=== PATIENT | female | born 1945 | race Caucasian/White ===

== ENCOUNTER 2018-05-16 08:53 | Emergency (ER) | payer MEDICARE ==
[2018-05-16 09:20] VITALS: BP 141/79
--- NOTE | 2018-05-16 09:45 | UC ---
Respiratory Complaint HPI - HPI Summary HPI Summary: 72 year old female with cough. Present for over 10 days. Was getting better but in the past week worsened. productive cough. feels some wheezing. no fever. concern for bronchitis. - History of Current Complaint Chief Complaint: UCGeneralIllness Stated Complaint: RIGHT EAR COMPLAINT, CONGESTION, COUGH Time Seen by Provider: 05/16/18 09:24 Hx Obtained From: Patient Onset/Duration: Gradual Onset Timing: Constant Severity Initially: Mild Severity Currently: Moderate Pain Intensity: 5 Character: Cough: Productive Aggravating Factors: Nothing Alleviating Factors: Nothing Associated Signs And Symptoms: Positive: Wheezing, URI, Nasal Congestion - Allergies/Home Medications Allergies/Adverse Reactions: Allergies Allergy/AdvReac Type Severity Reaction Status Date / Time No Known Allergies Allergy Verified 08/11/15 10:06 Home Medications: Home Medications Mesalamine (NF) [Apriso (NF)] 0.375 gm PO QID 05/16/18 [History Confirmed ] Potassium Chlor TAB (NF) [Kaon-Cl-10 TAB (NF)] 10 meq PO DAILY 05/16/18 [ History Confirmed 05/16/18] PMH/Surg Hx/FS Hx/Imm Hx Previously Healthy: Yes Respiratory History: Bronchitis - Surgical History Surgical History: Yes Surgery Procedure, Year, and Place: TONSILLECTOMY - Social History Occupation: Retired Lives: With Family Alcohol Use: Occasionally Substance Use Type: None Smoking Status (MU): Never Smoked Tobacco - Immunization History Most Recent Influenza Vaccination: Not the 2014/2015 Season Review of Systems Constitutional: Fatigue ENT: Sore Throat, Nasal Discharge, Sinus Congestion, Sinus Pain/Tenderness Respiratory: Cough Is Patient Immunocompromised?: No All Other Systems Reviewed And Are Negative: Yes Physical Exam Triage Information Reviewed: Yes Appearance: Well-Appearing, No Pain Distress, Well-Nourished Vital Signs: Initial Vital Signs Temp 98.9 F 05/16/18 09:06 Pulse 65 05/16/18 09:06 Resp 15 05/16/18 09:06 BP 141/79 05/16/18 09:06 Pulse Ox 100 05/16/18 09:06 Vital Signs Reviewed: Yes Eye Exam: Normal ENT Exam: Normal Dental Exam: Normal Neck exam: Normal Neck: Positive: 1 Respiratory Exam: Normal Cardiovascular Exam: Normal Abdominal Exam: Normal Musculoskeletal Exam: Normal Neurological Exam: Normal Psychological Exam: Normal Skin Exam: Normal UC Diagnostic Evaluation - Laboratory O2 Sat by Pulse Oximetry: 100 Respiratory Course/Dx - Course Course Of Treatment: with resolution of Sx and now worsening there is concern about secondary bacterial infection offer treatmane at this time and she is aware and agree to plan and aware of SE of abx - Differential Dx/Diagnosis Differential Diagnosis/HQI/PQRI: Bronchitis, Lower Resp Infection, Sinusitis Provider Diagnoses: bronchitis Discharge - Sign-Out/Discharge Documenting (check all that apply): Discharge/Admit/Transfer - Discharge Plan Condition: Good Disposition: HOME Prescriptions: Albuterol HFA INHALER* [Ventolin HFA Inhaler*] 1 puff INH Q4H PRN #1 mdi PRN Reason: Sob/Wheezing Amoxicillin/Clavulanate TAB* [Augmentin TAB 875*] 875 mg PO BID #20 tab Benzonatate CAP* [Tessalon 100 MG CAP*] 100 mg PO TID #20 cap Patient Education Materials: Acute Bronchitis (ED) Referrals: Yancy Lisa MD [Primary Care Provider] - 4 Days - Billing Disposition and Condition Condition: GOOD Disposition: Home
== END 2018-05-16 09:39 | disposition home or self-care (01) ==
LOC: UCCORT 08:53
DX: J40 Bronchitis, not specified as acute or chronic (principal)
CPT/HCPCS: 99212; G0463

== ENCOUNTER 2019-03-06 09:31 | Emergency (ER) | payer MEDICARE ==
[2019-03-06 09:43] VITALS: BP 167/108
--- NOTE | 2019-03-06 10:17 | UC ---
Throat Pain/Nasal [place] HPI - HPI Summary HPI Summary: 73 -year-old female who has had upper respiratory illness with head congestion for over 1 week, on Sunday 5 days ago she started having some left-sided sinus pressure, postnasal drainage anti-cough. She denies any fever or chills. She did get a flu shot in the fall as well as pneumonia shot in the past. - History of Current Complaint Chief Complaint: UCRespiratory Stated Complaint: ST,CONGESTION,DIZZY Time Seen by Provider: 03/06/19 10:16 Hx Obtained From: Patient ?: No Onset/Duration: Gradual Onset Severity: Moderate Pain Intensity: 6 Cough: Nonproductive Associated Signs & Symptoms: Positive: Sinus Discomfort, Nasal Discharge, Other - Tight cough nonproductive. - Epiglottits Risk Factors Epiglottis Risk Factors: Negative - Allergies/Home Medications Allergies/Adverse Reactions: Allergies Allergy/AdvReac Type Severity Reaction Status Date / Time No Known Allergies Allergy Verified 03/06/19 09:41 Home Medications: Home Medications Multivitamin [Multivitamins] 1 cap PO DAILY 03/06/19 [History Confirmed 03/06/19 ] PMH/Surg Hx/FS Hx/Imm Hx Previously Healthy: Yes - Surgical History Surgical History: Yes Surgery Procedure, Year, and Place: TONSILLECTOMY - Family History Known Family History: Positive: Non-Contributory - Social History Occupation: Retired Alcohol Use: Occasionally Substance Use Type: None Smoking Status (MU): Never Smoked Tobacco - Immunization History Most Recent Influenza Vaccination: Not the 2014/2015 Season Review of Systems All Other Systems Reviewed And Are Negative: Yes ENT: Positive: Nasal Discharge, Sinus Congestion, Sinus Pain/Tenderness - Left sided sinus tenderness. Respiratory: Positive: Cough - NonProductive tight cough Is Patient Immunocompromised?: No Physical Exam Triage Information Reviewed: Yes Appearance: Well-Appearing, No Pain Distress, Well-Nourished Vital Signs: Initial Vital Signs Temp 97.8 F 03/06/19 09:36 Pulse 64 03/06/19 09:36 Resp 18 03/06/19 09:36 BP 167/108 03/06/19 09:36 Pulse Ox 100 03/06/19 09:36 Vital Signs Reviewed: Yes Eye Exam: Normal ENT: Positive: Nasal congestion, Nasal drainage, TMs normal, Sinus tenderness, Uvula midline - Left sided maxillary sinus tenderness on palpation, no nasal coryza, inflamed turbinates on the left side.. Negative: Tonsillar swelling, Tonsillar exudate, Trismus, Muffled voice, Hoarse voice Neck exam: Normal Neck: Positive: Supple, Nontender, No Lymphadenopathy Respiratory: Positive: Lungs clear, Normal breath sounds, No respiratory distress, No accessory muscle use - Tight cough but lungs sounds are clear, no respiratory distress. Cardiovascular: Positive: RRR, No Murmur, Pulses Normal, Brisk Capillary Refill Musculoskeletal Exam: Normal Neurological Exam: Normal Psychological Exam: Normal Skin Exam: Normal Throat Pain/Nasal Course/Dx - Course Course Of Treatment: Patient has used an albuterol inhaler in the past but we reviewed proper use of that and she is to do to puffs every 4 hours while awake. I'm going to treat her sinusitis with Augmentin 875 mg by mouth twice a day 10 days. She is to follow-up with her primary care provider early next week if no improvement or sooner if symptoms worsen. - Differential Dx/Diagnosis Provider Diagnosis: Sinusitis, Bronchitis Discharge - Sign-Out/Discharge Documenting (check all that apply): Patient Departure All imaging exams completed and their final reports reviewed: No Studies - Discharge Plan Condition: Fair Disposition: HOME Prescriptions: Albuterol HFA INHALER* [Ventolin HFA Inhaler*] 2 puff INH Q4H PRN 5 Days #1 mdi PRN Reason: Wheezing Amoxicillin/Clavulanate TAB* [Augmentin TAB 875*] 875 mg PO BID 10 Days #20 tab Patient Education Materials: Sinusitis (ED), Acute Bronchitis (ED) Referrals: Yancy Lisa MD [Primary Care Provider] - Additional Instructions: Increase fluids, take the augmentin with food, use your albuterol inhaler 2 puffs every 4 hours while awake. Follow up with your primary care doctor in 4-5 days if no improvement. - Billing Disposition and Condition Condition: FAIR Disposition: Home
--- OUTSIDE RECORDS SUMMARY | 2019-03-06 10:22 | XMS REPORT | Continuity of Care Document ---
:1945 External Reference #:[id number] Author Name Prakash Lim N.P. 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 Unavailable Payers Date Identification Numbers Payment Provider Subscriber Effective: 2010 Policy Number: [id number] Medicare Alban Harden PayID: [id number] [address] [place] [address] Effective: 2013 Policy Number: [facility] Maribell Harden [id number] [facility] PayID: [id number] [address] [place] [address] Effective: 2013 Policy Number: [id number] [facility] Alban Harden Expires: 2013 [address] [address] [place] [address] Expires: 2012 Policy Number: [id number] [facility] Maribell Harden [address] [address] [place] [address] Effective: 2005 Policy Number: [id number] [facility] Alban Harden Expires: 2008 Group Number: [id number] [address] PayID: [id number] [place] [address] Expires: 2009 Policy Number: [id number] [facility] Maribell Harden Group Number: [id number] [address] PayID: [id number] [place] [address] Advance Directives Description No Information Available Problems Active Problems Provider Date Benign essential hypertension Yancy Lisa M.D. Onset: 03/27/2013 Mixed hyperlipidemia Yancy Lisa M.D. Onset: 03/27/2013 Ulcerative colitis Lauren RaygozaVANESSA Onset: 07/04/2014 Allergic rhinitis Yancy Lisa M.D. Onset: 03/27/2013 Osteoarthritis Yancy Lisa M.D. Onset: 03/27/2013 Esophagitis Lauren RaygozaVANESSA Onset: 07/04/2014 Dietary potassium - low Jaret LaurenVANESSA lobo Onset: 07/04/2014 Essential hypertension Yancy Lisa M.D. Onset: 10/01/2015 Inactive Problems Asthma without status asthmaticus Yancy Lisa M.D. Onset: 03/27/2013 Inactive: 09/01/2014 Peptic reflux disease Yancy Lisa M.D. Onset: 03/27/2013 Inactive: 09/01/2014 Indigestion Yancy Lisa M.D. Onset: 03/27/2013 Inactive: 09/01/2014 Family History Date Family Member(s) Observation Comments Mother 92 Mother Depression Mother Hypertension Mother heaqrt issues Children 3 First Son 43 First Son No Current Problems First Daughter 52 First Daughter No Current Problems Second Daughter 50 Second Daughter No Current Problems Siblings 4 First Brother 67 First Brother No Current Problems Second Brother 64 Second Brother No Current Problems First Sister 66 First Sister No Current Problems Second Sister 57 Second Sister No Current Problems Social History Type Date Description Comments Sex Unknown Marital Status Legal Status: Tobacco Use Start: Unknown Never Smoked Cigarettes ETOH Use Occasionally consumes alcohol Tobacco Use Start: Unknown Patient has never smoked Smoking Status Reviewed: 08/27/18 Patient has never smoked Allergies, Adverse Reactions, Alerts Description No Known Drug Allergies Medications Active Medications SIG Qnty Indications Ordering Date Provider Rosuvastatin Calcium take 1 tablet 90tabs E78.2 Yancy Lisa 02/24/2019 10mg Tablets by mouth every M., MReynaldoDReynaldo evening Klor-Con M10 1 by mouth 90tabs E87.6 Yancy Lisa 01/25/2015 10Meq Tablets ER every day Farrukh Sanchez Hydrochlorothiazide take one 90tabs I10 Yancy Lisa 01/06/2014 25mg Tablets tablet by Daniel SanchezDReynaldo mouth every day Lopressor 1 1/2 by mouth 135tabs I10 [facility] 03/08/2012 50mg Tablets every day M.DanielDReynaldo Imelda Allergy 1 by mouth J30.2 [facility] 03/08/2012 180mg Tablets every day M. MReynaldoDReynaldo Tums as needed K30 [facility] 03/08/2012 500mg Chewtabs Farrukh Sanchez K21.0 Apriso 4 caps by mouth qday K51.90 Unknown 0.375gm Caps ER 24HR -per dr thomas Mercaptopurine 1 tab by mouth every day K51.90 Unknown 50mg Tablets Gastro History Medications Hydrocortisone apply to Upper 30gm L23.7 [facility] 07/18/2017 - 2.5% Cream Arms twice a day M., M.DReynaldo 08/27/2018 as needed Niacin ER take one tablet 90tabs E78.2 [facility] 02/14/2017 - (Antihyperlipidemic) by mouth at M., M.DReynaldo 02/10/2019 500mg bedtime Tablets ER Atorvastatin Calcium 1 by mouth every 90tabs E78.2 [facility] 2015 - 10mg day M., M.D. 05/03/2016 Tablets Lipitor 1 by mouth every 30tabs 272.2 [facility] 01/25/2015 - 20mg Tablets day M., M.D. 04/05/2015 Fish Oil 1 by mouth twice 60caps E78.2 [facility] 03/26/2014 - 1000mg Capsules a day M., M.D. 01/21/2016 Mucinex 1 po bid 461.9 [facility] 02/20/2014 - 600mg Tablets ER M., M.D. 02/24/2014 12HR Benzonatate 1 capsule po tid 30caps 466.0 [facility] 02/20/2014 - 100mg Capsules prn for cough M. M.DReynaldo 03/02/2014 Levofloxacin 1 po qd 10tabs 461.9 [facility] 02/20/2014 - 500mg Tablets M., M.D. 03/02/2014 466.0 Lipofen 1 Cap PO Qday 30caps 272.2 [facility] 02/20/2014 - 50mg Capsules With A Meal M., M.D. 03/26/2014 Klor-Con M20 Two tabs on 30tabs 276.8 [facility] 02/04/2014 - 20Meq Tablets ER M-W-F One tab M., M.D. 09/15/2014 on /Sun Hydrochlorothiazide 1 tab po qam. 30tabs 401.1 [facility] 12/23/2013 - 12.5mg Tablets M., M.D. 01/06/2014 Amlodipine Besylate 1 by mouth 30tabs 401.1 [facility] 09/08/2013 - 10mg Tablets every day M., M.D. 12/23/2013 Amoxicillin 1 by mouth 20tabs 461.8 [facility] 08/20/2013 - 500mg Tablets twice a day M., M.D. 08/30/2013 Mucinex Maximum Strength 1 po bid 30tabs 461.8 [facility] 08/20/2013 - 1200mg M., M.D. 08/25/2013 Tablets ER 12HR Amlodipine Besylate 1 po qd 30tabs 401.1 [facility] 08/20/2013 - 5mg Tablets M., M.D. 09/08/2013 Primo-DR Thomas 2 Caps PO tid 556.9 [facility] 08/05/2013 - 400mg Capsules M., M.D. 05/19/2014 DR Weir-DR Thomas 1 PO Qday 556.9 [facility] 08/05/2013 - 9mg Tablets ER M., M.D. 12/23/2013 24HR Zocor 1 by mouth 30tabs 272.2 [facility] 03/08/2012 - 40mg Tablets every day M., M.D. 12/09/2013 Medications Administered in Office Medication SIG Qnty Indications Ordering Provider Date Admin Of Pneumovax Yancy Lisa M.D. 10/01/2015 Injection Dexamethasone Phosphate 1 MG Jose Diaz D.O. 04/29/1999 Injection Dexamethasone Phosphate 1 MG Jose Diaz D.O. 03/26/1998 Injection Dexamethasone Acetate Jose Diaz D.O. 03/26/1998 Injection Dexamethasone Phosphate Jose Diaz D.O. 03/31/1997 Injection Dexamethasone Acetate Jose Diaz D.O. 03/31/1997 Injection Dexamethasone Phosphate Jose Diaz D.O. 08/19/1996 Injection Dexamethasone Acetate Jose Diaz D.O. 08/19/1996 Injection Unlisted Jose Diaz D.O. 03/23/1995 Therapeutic/Diagnostic Injection Injection Unlisted Jose Diaz D.O. 03/23/1995 Therapeutic/Diagnostic Injection Injection Immunizations CPT Code Status Date Vaccine Lot # U-Flu Given 09/01/2018 Influenza,Unspecified U-Flu Given 08/18/2017 Influenza,Unspecified [id number] Given 10/01/2015 Pneumovax [id number] Q2038 Given 09/14/2015 Flu Vaccine 3+Yrs Old(Fluzone) [id number] Given 09/01/2014 Flu Vaccine 3+Yrs Old(Fluzone) [id number] Q2038 Given 09/08/2013 Flu Vaccine 3+Yrs Old(Fluzone) [id number] Q2038 Given 09/05/2012 Flu Vaccine 3+Yrs Old(Fluzone) [id number] Given 09/05/2012 Flu Vaccine [id number] Q2038 Given 09/11/2011 Flu Vaccine 3+Yrs Old(Fluzone) [id number] Given 09/05/1999 Influenza Vaccine [id number] Given 10/08/1998 Influenza Vaccine 50729 Given 09/22/1997 Influenza Vaccine 63512 Given 09/12/1996 Influenza Vaccine 83895 Given 09/19/1995 Influenza Vaccine 18549 Given 09/19/1995 Influenza Vaccine [id number] Ordered 08/20/2016 Flu Vaccine Vital Signs Date Vital Result Comment 02/24/2019 11:07am BP Systolic 128 mmHg BP Diastolic 84 mmHg Height 62 inches 5'2" Weight 157.00 lb BMI (Body Mass Index) 28.7 kg/m2 02/10/2019 8:44am BP Systolic 130 mmHg BP Diastolic 88 mmHg Height 62 inches 5'2" Weight 159.00 lb BMI (Body Mass Index) 29.1 kg/m2 Heart Rate 72 /min Respiratory Rate 16 /min 02/05/2019 8:51am BP Systolic 130 mmHg BP Diastolic 80 mmHg Height 62 inches 5'2" Weight 159.00 lb BMI (Body Mass Index) 29.1 kg/m2 Heart Rate 78 /min Respiratory Rate 18 /min 08/28/2018 8:32am BP Systolic 138 mmHg BP Diastolic 78 mmHg Height 62 inches 5'2" Weight 158.00 lb BMI (Body Mass Index) 28.9 kg/m2 Heart Rate 68 /min Respiratory Rate 16 /min 08/06/2018 4:00pm BP Systolic 138 mmHg BP Diastolic 88 mmHg Height 62 inches 5'2" Weight 156.00 lb BMI (Body Mass Index) 28.5 kg/m2 Heart Rate 68 /min Respiratory Rate 16 /min 02/13/2018 8:39am BP Systolic 130 mmHg BP Diastolic 82 mmHg Height 62 inches 5'2" Weight 158.00 lb BMI (Body Mass Index) 28.9 kg/m2 Heart Rate 63 /min Respiratory Rate 18 /min 02/06/2018 8:20am BP Systolic 134 mmHg BP Diastolic 82 mmHg Height 62 inches 5'2" Weight 158.00 lb BMI (Body Mass Index) 28.9 kg/m2 Heart Rate 64 /min Respiratory Rate 18 /min 07/18/2017 10:12am BP Systolic 142 mmHg BP Diastolic 84 mmHg Height 62 inches 5'2" Weight 158.00 lb BMI (Body Mass Index) 28.9 kg/m2 Heart Rate 72 /min Respiratory Rate 16 /min 04/11/2017 9:38am BP Systolic 142 mmHg BP Diastolic 72 mmHg BP Systolic Recheck 112 mmHg TLW BP Diastolic Recheck 78 mmHg TLW Height 62 inches 5'2" Weight 161.00 lb BMI (Body Mass Index) 29.4 kg/m2 Heart Rate 58 /min Respiratory Rate 16 /min 03/26/2017 11:27am BP Systolic 110 mmHg BP Diastolic 68 mmHg Height 62 inches 5'2" Weight 160.00 lb BMI (Body Mass Index) 29.3 kg/m2 Heart Rate 59 /min Respiratory Rate 16 /min 02/14/2017 3:30pm BP Systolic 124 mmHg BP Diastolic 80 mmHg Height 62 inches 5'2" Weight 157.00 lb BMI (Body Mass Index) 28.7 kg/m2 Heart Rate 82 /min Respiratory Rate 16 /min 01/17/2017 8:44am BP Systolic 130 mmHg BP Diastolic 88 mmHg Height 62 inches 5'2" Weight 156.00 lb BMI (Body Mass Index) 28.5 kg/m2 Heart Rate 59 /min Respiratory Rate 16 /min 06/07/2016 8:44am BP Systolic 128 mmHg BP Diastolic 78 mmHg Height 62 inches 5'2" Weight 155.00 lb BMI (Body Mass Index) 28.3 kg/m2 Heart Rate 80 /min Respiratory Rate 20 /min 05/17/2016 8:40am BP Systolic 134 mmHg BP Diastolic 86 mmHg Height 62 inches 5'2" Weight 155.00 lb BMI (Body Mass Index) 28.3 kg/m2 Heart Rate 74 /min Respiratory Rate 17 /min 05/03/2016 9:04am BP Systolic 128 mmHg BP Diastolic 74 mmHg Height 62 inches 5'2" Weight 155.00 lb BMI (Body Mass Index) 28.3 kg/m2 Heart Rate 78 /min Respiratory Rate 18 /min 01/21/2016 8:47am BP Systolic 143 mmHg BP Diastolic 80 mmHg Height 62 inches 5'2" Weight 154.00 lb BMI (Body Mass Index) 28.2 kg/m2 Heart Rate 60 /min Respiratory Rate 20 /min 01/04/2016 8:34am BP Systolic 146 mmHg BP Diastolic 85 mmHg Height 62 inches 5'2" Weight 153.00 lb BMI (Body Mass Index) 28.0 kg/m2 Heart Rate 54 /min Respiratory Rate 18 /min 10/01/2015 4:13pm BP Systolic 165 mmHg BP Diastolic 92 mmHg Height 62 inches 5'2" Weight 152.00 lb BMI (Body Mass Index) 27.8 kg/m2 Heart Rate 67 /min Respiratory Rate 20 /min 05/31/2015 9:27am BP Systolic 132 mmHg BP Diastolic 80 mmHg Height 62 inches 5'2" Weight 156.00 lb BMI (Body Mass Index) 28.5 kg/m2 Heart Rate 54 /min Body Temperature 97.4 F Respiratory Rate 16 /min 04/26/2015 8:56am BP Systolic 155 mmHg BP Diastolic 89 mmHg Height 62 inches 5'2" Weight 162.00 lb BMI (Body Mass Index) 29.6 kg/m2 Heart Rate 73 /min Respiratory Rate 16 /min 04/05/2015 8:55am BP Systolic 141 mmHg BP Diastolic 85 mmHg Height 62 inches 5'2" Weight 158.00 lb BMI (Body Mass Index) 28.9 kg/m2 Heart Rate 54 /min Respiratory Rate 18 /min 01/25/2015 9:46am BP Systolic 151 mmHg BP Diastolic 86 mmHg Height 62 inches 5'2" Weight 161.00 lb BMI (Body Mass Index) 29.4 kg/m2 Heart Rate 68 /min Respiratory Rate 15 /min 12/14/2014 9:21am BP Systolic 154 mmHg BP Diastolic 92 mmHg Height 62 inches 5'2" Weight 159.00 lb BMI (Body Mass Index) 29.1 kg/m2 Heart Rate 62 /min Respiratory Rate 16 /min 09/15/2014 9:41am BP Systolic 124 mmHg BP Diastolic 74 mmHg Height 62 inches 5'2" Weight 152.00 lb BMI (Body Mass Index) 27.8 kg/m2 Heart Rate 66 /min Respiratory Rate 14 /min 09/01/2014 3:09pm BP Systolic 80548 mmHg Height 62 inches 5'2" Weight 152.00 lb BMI (Body Mass Index) 27.8 kg/m2 Heart Rate 56 /min Respiratory Rate 20 /min 06/18/2014 8:47am BP Systolic 141 mmHg BP Diastolic 87 mmHg Height 62 inches 5'2" Weight 149.00 lb BMI (Body Mass Index) 27.2 kg/m2 Heart Rate 80 /min Body Temperature 97.2 F Respiratory Rate 20 /min 05/26/2014 2:20pm BP Systolic 140 mmHg BP Diastolic 85 mmHg Height 62 inches 5'2" Weight 150.00 lb BMI (Body Mass Index) 27.4 kg/m2 Heart Rate 70 /min Respiratory Rate 18 /min 03/26/2014 3:51pm BP Systolic 136 mmHg BP Diastolic 80 mmHg Height 62 inches 5'2" Weight 149.00 lb BMI (Body Mass Index) 27.2 kg/m2 Heart Rate 88 /min Respiratory Rate 18 /min 02/20/2014 4:09pm BP Systolic 136 mmHg BP Diastolic 94 mmHg Height 62 inches 5'2" Weight 150.00 lb BMI (Body Mass Index) 27.4 kg/m2 Heart Rate 72 /min Respiratory Rate 18 /min 02/03/2014 9:43am BP Systolic 134 mmHg BP Diastolic 84 mmHg Height 62 inches 5'2" Weight 152.00 lb BMI (Body Mass Index) 27.8 kg/m2 Heart Rate 67 /min Respiratory Rate 18 /min 01/06/2014 9:47am BP Systolic 137 mmHg BP Diastolic 93 mmHg Height 62 inches 5'2" Weight 154.00 lb BMI (Body Mass Index) 28.2 kg/m2 Heart Rate 65 /min Respiratory Rate 18 /min 12/23/2013 9:04am BP Systolic 137 mmHg BP Diastolic 83 mmHg Height 62 inches 5'2" Weight 153.00 lb BMI (Body Mass Index) 28.0 kg/m2 Heart Rate 62 /min Respiratory Rate 18 /min 10/21/2013 3:29pm BP Systolic 157 mmHg BP Diastolic 85 mmHg BP Systolic Recheck 124 mmHg BP Diastolic Recheck 70 mmHg Height 62 inches 5'2" Weight 150.00 lb BMI (Body Mass Index) 27.4 kg/m2 Heart Rate 64 /min Respiratory Rate 20 /min 09/08/2013 8:45am BP Systolic 154 mmHg BP Diastolic 90 mmHg Height 62 inches 5'2" Weight 145.00 lb BMI (Body Mass Index) 26.5 kg/m2 Heart Rate 64 /min Respiratory Rate 20 /min 08/20/2013 8:43am BP Systolic 179 mmHg BP Diastolic 93 mmHg Height 62 inches 5'2" Weight 140.00 lb BMI (Body Mass Index) 25.6 kg/m2 Heart Rate 61 /min Body Temperature 97.0 F 08/05/2013 10:28am BP Systolic 146 mmHg BP Diastolic 78 mmHg Height 62 inches 5'2" Weight 138.00 lb BMI (Body Mass Index) 25.2 kg/m2 Heart Rate 57 /min Respiratory Rate 18 /min 03/27/2013 10:22am BP Systolic 126 mmHg BP Diastolic 66 mmHg Height 62 inches 5'2" Weight 140.00 lb BMI (Body Mass Index) 25.6 kg/m2 Heart Rate 59 /min Respiratory Rate 20 /min 09/05/2012 1:54pm BP Systolic 124 mmHg BP Diastolic 82 mmHg Height 62 inches 5'2" Weight 146.00 lb BMI (Body Mass Index) 26.7 kg/m2 Heart Rate 64 /min Respiratory Rate 16 /min 03/11/2012 11:22am BP Systolic 140 mmHg BP Diastolic 87 mmHg Height 62 inches 5'2" Weight 153.00 lb BMI (Body Mass Index) 28.0 kg/m2 Heart Rate 94 /min Last Menstrual Period 0 Respiratory Rate 15 /min Results Test Date Facility Test Result H/L Range Note CBC With Diff 02/10/2019 [facility] WBC 6.2 10*3/uL (4.1-11.0) [address] [facility] (607)- - RBC 4.57 10*6/uL (4.00-5.40) HGB 14.2 g/dL (12.0-16.0) HCT 43.5 % (36.0-47.0) MCV 95.2 fL High (80.0-95.0) MCH 31.0 pg (27.0-32.0) MCHC 32.6 g/dL (32.0-36.0) RDW 14.3 % (10.5-14.5) PLT 243 10*3/uL (150-450) MPV 9.6 fL (7.1-10.7) Neut % 65.2 % (35.0-75.0) Lymph % 19.9 % (16.0-52.0) [place] % 10.6 % High (0.0-8.0) Eos % 3.5 % (0.0-5.0) Baso % 0.8 % (0.0-4.0) Neut # 4.0 10*3/uL (1.8-7.7) Lymph # 1.2 10*3/uL (1.2-4.8) [place] # 0.7 10*3/uL (0.0-0.8) Eos # 0.2 10*3/uL (0.0-0.5) Baso # 0.0 10*3/uL (0.0-0.2) Laboratory test 02/10/2019 [facility] Magnesium 1.9 mg/dL (1.7-2.4) finding [address] (607)- - Lipid Extended Panel 02/10/2019 [facility] Appearance CLEAR (Clear) [address] (607)- - Cholesterol @ 269 mg/dL High (0-200) Triglyceride @ 262 mg/dL High (30-200) HDL Cholesterol @ 41 mg/dL (>40) 1 Chol/HDL Ratio 6.6 RATIO 2 Direct LDL @ 179 mg/dL High (<130) 3 VLDL (Calc) 49 mg/dL High (0-30) CMP 02/10/2019 [facility] Sodium 140 mmol/L (136-145) [address] (049)- - Potassium 3.7 mmol/L (3.6-5.2) Chloride 105 mmol/L (100-108) Co2 23 mmol/L (22-31) Anion Gap 12 mmol/L (7-16) Urea Nitrogen 18 mg/dL (7-24) Creatinine 0.78 mg/dL (0.60-1.00) BUN/Creat Ratio 23.1 RATIO High (10.0-20.0) Glucose 111 mg/dL High (70-99) Calcium 9.1 mg/dL (8.4-10.2) Total Protein 7.8 g/dL (6.4-8.2) Albumin 3.8 g/dL (3.2-4.5) Globulin 4.0 g/dL (2.7-4.3) Alb/Glob Ratio 1.0 RATIO Alkaline Phosphatase 58 U/L (45-117) Bilirubin,Total 0.5 mg/dL (0.0-1.0) Ast (Sgot) 41 U/L High (11-39) Alt (SGPT) 73 U/L (12-78) GFR >60 ml/min/1.73m2 (>59) GFR ( Amer) >60 ml/min/1.73m2 (>59) GFR Interpretation <SEE NOTE> 4 Hemoglobin A1c 02/10/2019 [facility] Hemoglobin A1c @ 6.0 % (4.0-6.0) 5 [address] (729)- - Est Average Glucose 126 mg/dL Laboratory test finding 02/10/2019 [facility] Esr 41 mm/h High (0-30) [address] (530)- - C Reactive Protein @ <0.3 mg/dL (0.0-0.5) Rheumatoid Factor @ <15 IU/mL (0-15) Uric Acid 5.7 mg/dL (2.6-6.0) 25 Hydroxy Vit D @ 52 ng/mL (31-100) 6 TSH,Ultrasensitive @ 1.490 mIU/L (0.360-4.170) CKMB Panel 02/10/2019 [facility] CK 148 U/L (26-192) [address] (607)- - CMB Reflex 02/10/2019 [facility] CKMB 3.7 ng/mL (0.0-5.0) [facility] [employer] [facility] (607)- - CKMB Relative Index 2.5 {index_val} (0.0-4.0) Laboratory test finding 08/06/2018 [facility] Esr 28 mm/h (0-30) [address] [employer] [facility] (607)- - 25 Hydroxy Vit D @ 48 ng/mL (31-100) 7 Direct LDL @ 159 mg/dL High (<130) 8 Hemoglobin A1c 08/06/2018 [facility] Hemoglobin A1c @ 6.1 % High (4.0- 6.0) 9 [address] [employer] [facility] (607)- - Est Average Glucose 128 mg/dL Laboratory 08/06/2018 [facility] TSH,Ultrasensitive @ 1.340 (0.360- 4.170) test finding [facility] [employer] [facility] mIU/L (607)- - Lipid 08/06/2018 [facility] Cholesterol @ 239 High (0-200) [address] [place] [address] mg/dL (607)- - Triglyceride @ 499 mg/dL High (30-200) HDL Cholesterol @ 31 mg/dL Low (>40) 10 Chol/HDL Ratio 7.7 RATIO 11 LDL Chol (Calc) UNABLE TO CALCUL <SEE NOTE> mg/dL (<130) 12 CMP 08/06/2018 [facility] Sodium 139 mmol/L (136-145) [facility] [employer] [facility] (607)- - Potassium 3.5 mmol/L Low (3.6-5.2) Chloride 100 mmol/L (100-108) Co2 29 mmol/L (22-31) Anion Gap 10 mmol/L (7-16) Urea Nitrogen 18 mg/dL (7-24) Creatinine 0.80 mg/dL (0.60-1.00) BUN/Creat Ratio 22.5 RATIO High (10.0-20.0) Glucose 100 mg/dL High (70-99) Calcium 9.5 mg/dL (8.4-10.2) Total Protein 8.1 g/dL (6.4-8.2) Albumin 3.7 g/dL (3.2-4.5) Globulin 4.4 g/dL High (2.7-4.3) Alb/Glob Ratio 0.8 RATIO Alkaline Phosphatase 71 U/L (45-117) Bilirubin,Total 0.5 mg/dL (0.0-1.0) Ast (Sgot) 52 U/L High (11-39) Alt (SGPT) 80 U/L High (12-78) GFR >60 ml/min/1.73m2 (>59) GFR ( Amer) >60 ml/min/1.73m2 (>59) GFR Interpretation <SEE NOTE> 13 CBC With Diff 08/06/2018 [facility] WBC 7.0 10*3/uL (4.1-11.0) [address] (607)- - RBC 4.36 10*6/uL (4.00-5.40) HGB 13.9 g/dL (12.0-16.0) HCT 40.3 % (36.0-47.0) MCV 92.4 fL (80.0-95.0) MCH 31.9 pg (27.0-32.0) MCHC 34.5 g/dL (32.0-36.0) RDW 14.0 % (10.5-14.5) PLT 250 10*3/uL (150-450) MPV 9.2 fL (7.1-10.7) Neut % 65.5 % (35.0-75.0) Lymph % 21.1 % (16.0-52.0) [place] % 10.8 % High (0.0-8.0) Eos % 1.8 % (0.0-5.0) Baso % 0.8 % (0.0-4.0) Neut # 4.6 10*3/uL (1.8-7.7) Lymph # 1.5 10*3/uL (1.2-4.8) [place] # 0.7 10*3/uL (0.0-0.8) Eos # 0.1 10*3/uL (0.0-0.5) Baso # 0.1 10*3/uL (0.0-0.2) CBC Auto Diff 02/06/2018 [facility] White Blood Count 6.1 10^3/uL N 3.5-10.8 Red Blood Count 4.20 10^6/uL N 4.0-5.4 Hemoglobin 13.6 g/dL N 12.0-16.0 Hematocrit 39 % N 35-47 Mean Corpuscular Volume 93 fL N 80-97 Mean Corpuscular Hemoglobin 32 pg High 27-31 Mean Corpuscular HGB Conc 35 g/dL N 31-36 Red Cell Distribution Width 14 % N 10.5-15 Platelet Count 217 10^3/uL N 150-450 Mean Platelet Volume 9.1 um3 N 7.4-10.4 Abs Neutrophils 4.0 10^3/uL N 1.5-7.7 Abs Lymphocytes 1.3 10^3/uL N 1.0-4.8 Abs Monocytes 0.7 10^3/uL N 0-0.8 Abs Eosinophils 0.1 10^3/uL N 0-0.6 Abs Basophils 0.1 10^3/uL N 0-0.2 Abs Nucleated RBC 0 10^3/uL Granulocyte % 64.9 % N 38-83 Lymphocyte % 20.6 % Low 25-47 Monocyte % 11.5 % High 0-7 Eosinophil % 2.0 % N 0-6 Basophil % 1.0 % N 0-2 Nucleated Red Blood Cells % 0 Laboratory test 02/06/2018 [facility] Hemoglobin A1c 6.0 % High 4.0- 5.6 14 finding (Glyco HGB) Erythrocyte Sed Rate 47 mm/Hr High 0-40 15 Vitamin D Total 25(Oh) 50.4 ng/mL High 20-50 16 Lipid Profile 02/06/2018 [facility] Triglycerides 394 mg/dL 17 (Trig/Chol/HDL) Cholesterol 213 mg/dL 18 HDL Cholesterol 31.1 mg/dL 19 LDL Cholesterol 103 mg/dL 20 Laboratory test 02/06/2018 [facility] TSH (Thyroid 2.29 mcIU/mL N 0.34-5.60 21 finding Stim Horm) Comp Metabolic 02/06/2018 [facility] Sodium 134 mmol/L N 133-145 Panel Potassium 3.3 mmol/L Low 3.5-5.0 Chloride 99 mmol/L Low 101-111 Co2 Carbon Dioxide 26 mmol/L N 22-32 Anion Gap 9 mmol/L N 2-11 Glucose 113 mg/dL High 70-100 Blood Urea Nitrogen 18 mg/dL N 6-24 Creatinine 0.77 mg/dL N 0.51-0.95 BUN/Creatinine Ratio 23.4 High 8-20 Calcium 9.7 mg/dL N 8.6-10.3 Total Protein 7.3 g/dL N 6.4-8.9 Albumin 4.0 g/dL N 3.2-5.2 Globulin 3.3 g/dL N 2-4 Albumin/Globulin Ratio 1.2 N 1-3 Total Bilirubin 0.50 mg/dL N 0.2-1.0 Alkaline Phosphatase 53 U/L N 34-104 Alt 43 U/L N 7-52 Ast 32 U/L N 13-39 Egfr Non- 73.7 >60 Egfr 94.8 >60 22 CBC Auto Diff 07/18/2017 [facility] White Blood Count 6.7 10^3/uL N 3.5-10.8 Red Blood Count 4.09 10^6/uL N 4.0-5.4 Hemoglobin 13.1 g/dL N 12.0-16.0 Hematocrit 39 % N 35-47 Mean Corpuscular Volume 94 fL N 80-97 Mean Corpuscular Hemoglobin 32 pg High 27-31 Mean Corpuscular HGB Conc 34 g/dL N 31-36 Red Cell Distribution Width 14 % N 10.5-15 Platelet Count 268 10^3/uL N 150-450 Mean Platelet Volume 9 um3 N 7.4-10.4 Abs Neutrophils 4.7 10^3/uL N 1.5-7.7 Abs Lymphocytes 1.3 10^3/uL N 1.0-4.8 Abs Monocytes 0.6 10^3/uL N 0-0.8 Abs Eosinophils 0.1 10^3/uL N 0-0.6 Abs Basophils 0 10^3/uL N 0-0.2 Abs Nucleated RBC 0 10^3/uL N Granulocyte % 69.7 % N 38-83 Lymphocyte % 18.8 % Low 25-47 Monocyte % 9.4 % High 1-9 Eosinophil % 2.0 % N 0-6 Basophil % 0.1 % N 0-2 Nucleated Red Blood Cells % 0.1 N Comp Metabolic Panel 07/18/2017 [facility] Sodium 135 mmol/L N 133- 145 Potassium 3.9 mmol/L N 3.5-5.0 Chloride 101 mmol/L N 101-111 Co2 Carbon Dioxide 26 mmol/L N 22-32 Anion Gap 8 mmol/L N 2-11 Glucose 109 mg/dL High 70-100 Blood Urea Nitrogen 16 mg/dL N 6-24 Creatinine 0.71 mg/dL N 0.51-0.95 BUN/Creatinine Ratio 22.5 High 8-20 Calcium 10.0 mg/dL N 8.6-10.3 Total Protein 7.6 g/dL N 6.4-8.9 Albumin 4.2 g/dL N 3.2-5.2 Globulin 3.4 g/dL N 2-4 Albumin/Globulin Ratio 1.2 N 1-3 Total Bilirubin 0.60 mg/dL N 0.2-1.0 Alkaline Phosphatase 48 U/L N 34-104 Alt 38 U/L N 7-52 Ast 31 U/L N 13-39 Egfr Non- 81.2 N >60 Egfr 104.4 N >60 23 Lipid Profile 07/18/2017 [facility] Triglycerides 388 mg/dL N 24 (Trig/Chol/HDL) Cholesterol 238 mg/dL N 25 HDL Cholesterol 37.8 mg/dL N 26 LDL Cholesterol 123 mg/dL N 27 Laboratory test 07/18/2017 [facility] Hemoglobin A1c 5.9 % N Less than 28 finding (Glyco HGB) 6.0 TSH (Thyroid Stim Horm) 1.44 mcIU/mL N 0.34-5.60 29 CBC Auto Diff 03/26/2017 [facility] White Blood Count 7.7 10^3/uL N 3.5-10.8 Red Blood Count 4.13 10^6/uL N 4.0-5.4 Hemoglobin 13.0 g/dL N 12.0-16.0 Hematocrit 39 % N 35-47 Mean Corpuscular Volume 95 fL N 80-97 Mean Corpuscular Hemoglobin 31 pg N 27-31 Mean Corpuscular HGB Conc 33 g/dL N 31-36 Red Cell Distribution Width 14 % N 10.5-15 Platelet Count 258 10^3/uL N 150-450 Mean Platelet Volume 9 um3 N 7.4-10.4 Abs Neutrophils 4.7 10^3/uL N 1.5-7.7 Abs Lymphocytes 1.9 10^3/uL N 1.0-4.8 Abs Monocytes 0.9 10^3/uL High 0-0.8 Abs Eosinophils 0.2 10^3/uL N 0-0.6 Abs Basophils 0.1 10^3/uL N 0-0.2 Abs Nucleated RBC 0.01 10^3/uL N Granulocyte % 61.2 % N 38-83 Lymphocyte % 24.5 % Low 25-47 Monocyte % 11.0 % High 1-9 Eosinophil % 2.2 % N 0-6 Basophil % 1.1 % N 0-2 Nucleated Red Blood Cells % 0.1 N Comp Metabolic Panel 03/26/2017 [facility] Sodium 134 mmol/L N 133- 145 Potassium 3.7 mmol/L N 3.5-5.0 Chloride 102 mmol/L N 101-111 Co2 Carbon Dioxide 26 mmol/L N 22-32 Anion Gap 6 mmol/L N 2-11 Glucose 107 mg/dL High 70-100 Blood Urea Nitrogen 19 mg/dL N 6-24 Creatinine 0.84 mg/dL N 0.51-0.95 BUN/Creatinine Ratio 22.6 High 8-20 Calcium 9.8 mg/dL N 8.6-10.3 Total Protein 7.5 g/dL N 6.4-8.9 Albumin 4.1 g/dL N 3.2-5.2 Globulin 3.4 g/dL N 2-4 Albumin/Globulin Ratio 1.2 N 1-3 Total Bilirubin 0.40 mg/dL N 0.2-1.0 Alkaline Phosphatase 50 U/L N 34-104 Alt 29 U/L N 7-52 Ast 24 U/L N 13-39 Egfr Non- 66.8 N >60 Egfr 86.0 N >60 30 Lipid Profile 03/26/2017 [facility] Triglycerides 327 mg/dL N 31 (Trig/Chol/HDL) Cholesterol 222 mg/dL N 32 HDL Cholesterol 37.0 mg/dL N 33 LDL Cholesterol 120 mg/dL N 34 Laboratory test 03/26/2017 [facility] Hemoglobin A1c 5.3 % N Less than 35 finding (Glyco HGB) 6.0 TSH (Thyroid Stim Horm) 1.61 mcIU/mL N 0.34-5.60 36 CBC Auto Diff 01/17/2017 [facility] White Blood Count 8.2 10^3/uL N 3.5-10.8 37 Red Blood Count 4.33 10^6/uL N 4.0-5.4 Hemoglobin 13.6 g/dL N 12.0-16.0 Hematocrit 40 % N 35-47 Mean Corpuscular Volume 93 fL N 80-97 Mean Corpuscular Hemoglobin 32 pg High 27-31 Mean Corpuscular HGB Conc 34 g/dL N 31-36 Red Cell Distribution Width 14 % N 10.5-15 Platelet Count 242 10^3/uL N 150-450 Mean Platelet Volume 10 um3 N 7.4-10.4 Abs Neutrophils 5.8 10^3/uL N 1.5-7.7 Abs Lymphocytes 1.3 10^3/uL N 1.0-4.8 Abs Monocytes 0.7 10^3/uL N 0-0.8 Abs Eosinophils 0.2 10^3/uL N 0-0.6 Abs Basophils 0.1 10^3/uL N 0-0.2 Abs Nucleated RBC 0 10^3/uL N Granulocyte % 71.2 % N 38-83 Lymphocyte % 16.4 % Low 25-47 Monocyte % 8.8 % N 1-9 Eosinophil % 3.0 % N 0-6 Basophil % 0.6 % N 0-2 Nucleated Red Blood Cells % 0 N Comp Metabolic Panel 01/17/2017 [facility] Sodium 133 mmol/L N 133- 145 Potassium 3.7 mmol/L N 3.5-5.0 Chloride 99 mmol/L Low 101-111 Co2 Carbon Dioxide 27 mmol/L N 22-32 Anion Gap 7 mmol/L N 2-11 Glucose 118 mg/dL High 70-100 Blood Urea Nitrogen 16 mg/dL N 6-24 Creatinine 0.73 mg/dL N 0.51-0.95 BUN/Creatinine Ratio 21.9 High 8-20 Calcium 10.0 mg/dL N 8.6-10.3 Total Protein 7.8 g/dL N 6.4-8.9 Albumin 4.2 g/dL N 3.2-5.2 Globulin 3.6 g/dL N 2-4 Albumin/Globulin Ratio 1.2 N 1-3 Total Bilirubin 0.50 mg/dL N 0.2-1.0 Alkaline Phosphatase 52 U/L N 34-104 Alt 30 U/L N 7-52 Ast 26 U/L N 13-39 Egfr Non- 78.6 N >60 Egfr 101.1 N >60 38 Laboratory test finding 01/17/2017 [facility] Lipase 22 U/L N 11.0- 82.0 39 Amylase 51 U/L N 29-103 40 Lipid Profile 01/17/2017 [facility] Triglycerides 471 mg/dL N 41 (Trig/Chol/HDL) Cholesterol 254 mg/dL N 42 HDL Cholesterol 38.4 mg/dL N 43 LDL Cholesterol (SEE NOTE) mg/dL N 44 Laboratory test 01/17/2017 [facility] Hemoglobin A1c 5.9 % N Less than 45 finding (Glyco HGB) 6.0 TSH (Thyroid Stim Horm) 1.68 mcIU/mL N 0.34-5.60 46 Laboratory test 05/03/2016 [facility] Hemoglobin A1c 5.7 % N Less than 47 finding (Glyco HGB) 6.0 Comp Metabolic 05/03/2016 [facility] Sodium 135 mmol/L N 133-145 Panel Potassium 3.5 mmol/L N 3.5-5.0 Chloride 101 mmol/L N 101-111 Co2 Carbon Dioxide 25 mmol/L N 22-32 Anion Gap 9 mmol/L N 2-11 Glucose 114 mg/dL High 70-100 Blood Urea Nitrogen 16 mg/dL N 6-24 Creatinine 0.78 mg/dL N 0.51-0.95 BUN/Creatinine Ratio 20.5 High 8-20 Calcium 9.6 mg/dL N 8.6-10.3 Total Protein 7.7 g/dL N 6.4-8.9 Albumin 4.3 g/dL N 3.2-5.2 Globulin 3.4 g/dL N 2-4 Albumin/Globulin Ratio 1.3 N 1-3 Total Bilirubin 0.50 mg/dL N 0.2-1.0 Alkaline Phosphatase 53 U/L N 34-104 Alt 26 U/L N 7-52 Ast 25 U/L N 13-39 Egfr Non- 73.0 N >60 Egfr 93.9 N >60 48 Lipid Profile 05/03/2016 [facility] Triglycerides 353 mg/dL N 49 (Trig/Chol/HDL) Cholesterol 205 mg/dL N 50 HDL Cholesterol 41.0 mg/dL N 51 LDL Cholesterol 93 mg/dL N 52 CBC Auto Diff 05/03/2016 [facility] White Blood Count 6.2 10^3/uL N 3.5-10.8 Red Blood Count 4.26 10^6/uL N 4.0-5.4 Hemoglobin 13.6 g/dL N 12.0-16.0 Hematocrit 40 % N 35-47 Mean Corpuscular Volume 94 fL N 80-97 Mean Corpuscular Hemoglobin 32 pg High 27-31 Mean Corpuscular HGB Conc 34 g/dL N 31-36 Red Cell Distribution Width 14 % N 10.5-15 Platelet Count 235 10^3/uL N 150-450 Mean Platelet Volume 9 um3 N 7.4-10.4 Abs Neutrophils 3.7 10^3/uL N 1.5-7.7 Abs Lymphocytes 1.6 10^3/uL N 1.0-4.8 Abs Monocytes 0.7 10^3/uL N 0-0.8 Abs Eosinophils 0.2 10^3/uL N 0-0.6 Abs Basophils 0.1 10^3/uL N 0-0.2 Abs Nucleated RBC 0 10^3/uL N Granulocyte % 59.6 % N 38-83 Lymphocyte % 25.6 % N 25-47 Monocyte % 10.6 % High 1-9 Eosinophil % 2.7 % N 0-6 Basophil % 1.5 % N 0-2 Nucleated Red Blood Cells % 0 N Laboratory test 05/03/2016 [facility] Rheumatoid Factor <15 IU/mL N < 15 53 finding TSH (Thyroid Stim Horm) 1.82 ?IU/mL N 0.34-5.60 54 Laboratory test 01/04/2016 [facility] Magnesium 1.9 mg/dL N 1.9-2.7 finding Laboratory test 01/04/2016 [facility] TSH (Thyroid 2.52 ?IU/mL N 0.34 -5.60 finding Stim Horm) Uric Acid 6.3 mg/dL N 2.3-6.6 Vitamin D Total 25(Oh) 36.0 ng/mL N 30-50 Lipid Profile 01/04/2016 [facility] Triglycerides 290 mg/dL N 55 (Trig/Chol/HDL) Cholesterol 245 mg/dL N 56 HDL Cholesterol 44.6 mg/dL N 57 LDL Cholesterol 142 mg/dL N 58 Laboratory test 01/04/2016 [facility] Erythrocyte Sed Rate 39 mm/Hr N 0-40 finding CRP High Sensitivity 3.09 mg/L N 59 Hemoglobin A1c (Glyco HGB) 5.8 % N Less than 6.0 60 Comp Metabolic Panel 01/04/2016 [facility] Sodium 135 mmol/L N 133- 145 Potassium 3.5 mmol/L N 3.5-5.0 Chloride 101 mmol/L N 101-111 Co2 Carbon Dioxide 25 mmol/L N 22-32 Anion Gap 9 mmol/L N 2-11 Glucose 109 mg/dL High 70-100 Blood Urea Nitrogen 18 mg/dL N 6-24 Creatinine 0.75 mg/dL N 0.51-0.95 BUN/Creatinine Ratio 24.0 High 8-20 Calcium 9.4 mg/dL N 8.6-10.3 Total Protein 7.6 g/dL N 6.4-8.9 Albumin 4.1 g/dL N 3.2-5.2 Globulin 3.5 g/dL N 2-4 Albumin/Globulin Ratio 1.2 N 1-3 Total Bilirubin 0.60 mg/dL N 0.2-1.0 Alkaline Phosphatase 58 U/L N 34-104 Alt 19 U/L N 7-52 Ast 18 U/L N 13-39 Egfr Non- 76.4 N >60 Egfr 98.2 N >60 61 CBC Auto Diff 01/04/2016 [facility] White Blood Count 7.8 10^3/uL N 3.5-10.8 Red Blood Count 4.28 10^6/uL N 4.0-5.4 Hemoglobin 13.6 g/dL N 12.0-16.0 Hematocrit 41 % N 35-47 Mean Corpuscular Volume 96 fL N 80-97 Mean Corpuscular Hemoglobin 32 pg High 27-31 Mean Corpuscular HGB Conc 33 g/dL N 31-36 Red Cell Distribution Width 14 % N 10.5-15 Platelet Count 242 10^3/uL N 150-450 Mean Platelet Volume 10 um3 N 7.4-10.4 Abs Neutrophils 5.2 10^3/uL N 1.5-7.7 Abs Lymphocytes 1.5 10^3/uL N 1.0-4.8 Abs Monocytes 0.8 10^3/uL N 0-0.8 Abs Eosinophils 0.2 10^3/uL N 0-0.6 Abs Basophils 0.1 10^3/uL N 0-0.2 Abs Nucleated RBC 0 10^3/uL N Granulocyte % 66.9 % N 38-83 Lymphocyte % 18.7 % Low 25-47 Monocyte % 10.5 % High 1-9 Eosinophil % 3.0 % N 0-6 Basophil % 0.9 % N 0-2 Nucleated Red Blood Cells % 0 N CBC W/Automated Diff 04/05/2015 [facility] White Blood Count 7.1 K/uL 3.1- 10.7 Red Blood Count 4.19 M/uL 3.90-5.40 Hemoglobin 13.7 gm/dL 11.6-15.8 Hematocrit 40.6 % 36.0-46.1 Mean Cell Volume 96.9 fl 80.9-99.0 Mean Corpuscular HGB 32.7 pg 25.9-32.7 Mean Corpuscular HGB Conc 33.7 g/dL 30.8-34.3 Platelet Count 280 K/uL 155-360 Red Cell Distri Width SD 48.9 fl High 3-47 Red Cell Distri Width %CV 14.1 % 11.7-14.4 Mean Platelet Volume 11.2 fL 8.9-12.4 Neut% 63.4 % 40.4-72.8 Lymph % 21.7 % 17.0-46.1 [place] % 11.5 % 4.3-13.2 Eo% 2.7 % 0.0-6.6 Bas% 0.7 % 0.0-1.1 Neut# 4.53 K/uL 1.0-7.0 Lymph # 1.55 K/uL Low 1.8-7.0 [place] # 0.82 K/uL 0.3-0.9 Eos # 0.19 K/uL 0.0-0.5 Baso # 0.05 K/uL 0.0-0.1 Comprehensive Metabolic Panel 04/05/2015 [facility] Glucose 120 mg/dL High 74-106 BUN 16 mg/dL 7-18 Creatinine 0.9 mg/dL 0.6-1.3 Glom Filtration Rate, Estimate >60 mL/min >60 If >60 mL/min >60 62 BUN/Creat 17.7 ratio Sodium 138 mmol/L 136-145 Potassium 3.6 mmol/L 3.5-5.1 Chloride 101 mmol/L 98-107 Carbon Dioxide 29 mmol/L 21-32 Anion Gap 8 mEq/L 8-16 Calcium 9.6 mg/dL 8.5-10.1 Total Protein 7.3 g/dL 6.4-8.2 Albumin 3.8 g/dL 3.4-5.0 Globulin 3.5 g/dL 1.9-4.3 Alb/Glob 1.1 ratio Bilirubin,Total 0.6 mg/dL 0.2-1.0 Sgot/Ast 48 U/L High 15-37 SGPT/Alt 89 U/L High 12-78 Alkaline Phosphatase 53 U/L 45-117 Laboratory test 04/05/2015 [facility] Sedimentation Rate 37 mm/hr High 0- 30 finding LDL Cholesterol 04/05/2015 [facility] Cholesterol 232 mg/dL < 200 63 Profile Triglycerides 318 mg/dL < 150 64 HDL Cholesterol 30 mg/dL > 40 65 LDL-Cholesterol 138 mg/dL < 100 66 Laboratory test 12/14/2014 [facility] TSH Reflex FT4 1.30 uIU/mL 0.36- 3.74 67 finding and/or FT3 LDL Cholesterol 12/14/2014 [facility] Cholesterol 265 mg/dL < 200 68 Profile Triglycerides 361 mg/dL < 150 69 HDL Cholesterol 36 mg/dL > 40 70 LDL-Cholesterol 157 mg/dL < 100 71 Laboratory test 12/14/2014 [facility] C-Reactive 0.69 mg/L <3.0 finding Protein,Cardiac Sedimentation Rate 31 mm/hr High 0-30 Comprehensive Metabolic Panel 12/14/2014 [facility] Glucose 93 mg/dL 74- 106 BUN 13 mg/dL 7-18 Creatinine 0.8 mg/dL 0.6-1.3 Glom Filtration Rate, Estimate >60 mL/min >60 If >60 mL/min >60 72 BUN/Creat 16.2 ratio Sodium 139 mmol/L 136-145 Potassium 3.2 mmol/L Low 3.5-5.1 Chloride 103 mmol/L 98-107 Carbon Dioxide 30 mmol/L 21-32 Anion Gap 9 mEq/L 8-16 Calcium 8.9 mg/dL 8.5-10.1 Total Protein 7.2 g/dL 6.4-8.2 Albumin 3.5 g/dL 3.4-5.0 Globulin 3.7 g/dL 1.9-4.3 Alb/Glob 0.9 ratio Bilirubin,Total 0.4 mg/dL 0.2-1.0 Sgot/Ast 18 U/L 15-37 SGPT/Alt 39 U/L 12-78 Alkaline Phosphatase 57 U/L 45-117 CBC W/Automated Diff 12/14/2014 [facility] White Blood Count 7.8 K/uL 3.1- 10.7 Red Blood Count 4.15 M/uL 3.90-5.40 Hemoglobin 13.6 gm/dL 11.6-15.8 Hematocrit 40.4 % 36.0-46.1 Mean Cell Volume 97.3 fl 80.9-99.0 Mean Corpuscular HGB 32.8 pg High 25.9-32.7 Mean Corpuscular HGB Conc 33.7 g/dL 30.8-34.3 Platelet Count 274 K/uL 155-360 Red Cell Distri Width SD 48.7 fl High 3-47 Red Cell Distri Width %CV 14.1 % 11.7-14.4 Mean Platelet Volume 11.0 fL 8.9-12.4 Neut% 69.5 % 40.4-72.8 Lymph % 19.4 % 17.0-46.1 [place] % 10.1 % 4.3-13.2 Eo% 0.5 % 0.0-6.6 Bas% 0.5 % 0.0-1.1 Neut# 5.39 K/uL 1.0-7.0 Lymph # 1.50 K/uL 0.8-3.4 [place] # 0.78 K/uL 0.3-0.9 Eos # 0.04 K/uL 0.0-0.5 Baso # 0.04 K/uL 0.0-0.1 Laboratory test finding 09/01/2014 [facility] Potassium 3.8 mmol/L 3.5- 5.1 LDL Cholesterol Profile 09/01/2014 [facility] Cholesterol 213 mg/dL 73 Triglycerides 212 mg/dL 74 HDL Cholesterol 45 mg/dL 75 LDL-Cholesterol 126 mg/dL 76 CBC W/Automated Diff 09/01/2014 [facility] White Blood Count 7.7 K/uL 3.1- 10.7 Red Blood Count 3.45 M/uL Low 3.90-5.40 Hemoglobin 11.6 gm/dL 11.6-15.8 Hematocrit 34.4 % Low 36.0-46.1 Mean Cell Volume 99.7 fl High 80.9-99.0 Mean Corpuscular HGB 33.6 pg High 25.9-32.7 Mean Corpuscular HGB Conc 33.7 g/dL 30.8-34.3 Platelet Count 308 K/uL 155-360 Red Cell Distri Width SD 57.2 fl High 3-47 Red Cell Distri Width %CV 16.4 % High 11.7-14.4 Mean Platelet Volume 10.3 fL 8.9-12.4 Neut% 61.9 % 40.4-72.8 Lymph % 27.4 % 17.0-46.1 [place] % 8.6 % 4.3-13.2 Eo% 1.4 % 0.0-6.6 Bas% 0.7 % 0.0-1.1 Neut# 4.75 K/uL 1.0-7.0 Lymph # 2.10 K/uL 0.8-3.4 [place] # 0.66 K/uL 0.3-0.9 Eos # 0.11 K/uL 0.0-0.5 Baso # 0.05 K/uL 0.0-0.1 Comprehensive Metabolic Panel 09/01/2014 [facility] Glucose 78 mg/dL 74- 106 BUN 13 mg/dL 7-18 Creatinine 0.8 mg/dL 0.6-1.3 Glom Filtration Rate, Estimate >60 mL/min >60 If >60 mL/min >60 77 BUN/Creat 16.2 ratio Sodium 139 mmol/L 136-145 Chloride 104 mmol/L 98-107 Carbon Dioxide 29 mmol/L 21-32 Anion Gap 10 mEq/L 8-16 Calcium 9.1 mg/dL 8.5-10.1 Total Protein 7.2 g/dL 6.4-8.2 Albumin 3.5 g/dL 3.4-5.0 Globulin 3.7 g/dL 1.9-4.3 Alb/Glob 0.9 ratio Bilirubin,Total 0.7 mg/dL 0.2-1.0 Sgot/Ast 14 U/L Low 15-37 SGPT/Alt 22 U/L 12-78 Alkaline Phosphatase 61 U/L 45-117 Comprehensive Metabolic Panel 06/18/2014 [facility] Glucose 83 mg/dL 76- 115 BUN 15 mg/dL 5-23 Creatinine 0.7 mg/dL 0.5-1.4 Glom Filtration Rate, Estimate >60 mL/min >60 If >60 mL/min >60 78 BUN/Creat 21.4 ratio Sodium 136 mmol/L 136-145 Potassium 3.2 mmol/L Low 3.5-5.1 Chloride 99 mmol/L 98-107 Carbon Dioxide 27 mEq/L 18-29 Anion Gap 13 mEq/L 8-16 Calcium 9.6 mg/dL 8.5-10.1 Total Protein 8.0 g/dL 6.3-8.0 Albumin 3.7 g/dL 3.5-5.0 Globulin 4.3 g/dL 1.9-4.3 Alb/Glob 0.9 ratio Bilirubin,Total 0.5 mg/dL 0.2-1.2 Sgot/Ast 16 U/L 16-40 SGPT/Alt 26 U/L Low 30-65 Alkaline Phosphatase 69 U/L 50-136 CBC W/Automated Diff 06/18/2014 [facility] White Blood Count 6.8 K/uL 3.1- 10.7 Red Blood Count 4.07 M/uL 3.90-5.40 Hemoglobin 12.9 gm/dL 11.6-15.8 Hematocrit 38.1 % 36.0-46.1 Mean Cell Volume 93.6 fl 80.9-99.0 Mean Corpuscular HGB 31.7 pg 25.9-32.7 Mean Corpuscular HGB Conc 33.9 g/dL 30.8-34.3 Platelet Count 314 K/uL 155-360 Red Cell Distri Width SD 50.3 fl High 3-47 Red Cell Distri Width %CV 15.2 % High 11.7-14.4 Mean Platelet Volume 10.9 fL 8.9-12.4 Neut% 70.8 % 40.4-72.8 Lymph % 16.9 % Low 17.0-46.1 [place] % 9.8 % 4.3-13.2 Eo% 2.1 % 0.0-6.6 Bas% 0.4 % 0.0-1.1 Neut# 4.79 K/uL 1.0-7.0 Lymph # 1.14 K/uL 0.8-3.4 [place] # 0.66 K/uL 0.3-0.9 Eos # 0.14 K/uL 0.0-0.5 Baso # 0.03 K/uL 0.0-0.1 LDL Cholesterol Profile 06/18/2014 [facility] Cholesterol 239 mg/dL High 120-200 Triglycerides 310 mg/dL High 16-231 HDL Cholesterol 32 mg/dL 29-83 LDL-Cholesterol 145 mg/dL 62-185 Laboratory test finding 06/18/2014 [facility] ThinPrep Pap See Note 79 Specimen Basic Metabolic Panel 02/20/2014 [facility] Glucose 100 mg/dL 76-115 BUN 21 mg/dL 5-23 Creatinine 0.9 mg/dL 0.5-1.4 Glom Filtration Rate, Estimate >60 mL/min >60 If >60 mL/min >60 80 BUN/Creat 23.3 ratio Sodium 138 mmol/L 136-145 Potassium 3.7 mmol/L 3.5-5.1 Chloride 104 mmol/L 98-107 Carbon Dioxide 27 mEq/L 18-29 Anion Gap 11 mEq/L 8-16 Calcium 9.3 mg/dL 8.5-10.1 Basic Metabolic Panel 02/03/2014 [facility] Glucose 84 mg/dL 76-115 BUN 17 mg/dL 5-23 Creatinine 0.8 mg/dL 0.5-1.4 Glom Filtration Rate, Estimate >60 mL/min >60 If >60 mL/min >60 81 BUN/Creat 21.2 ratio Sodium 137 mmol/L 136-145 Potassium 3.2 mmol/L Low 3.5-5.1 Chloride 101 mmol/L 98-107 Carbon Dioxide 28 mEq/L 18-29 Anion Gap 11 mEq/L 8-16 Calcium 9.3 mg/dL 8.5-10.1 CBC W/Automated Diff 02/03/2014 [facility] White Blood Count 9.7 K/uL 3.1- 10.7 Red Blood Count 4.52 M/uL 3.90-5.40 Hemoglobin 13.9 gm/dL 11.6-15.8 Hematocrit 41.5 % 36.0-46.1 Mean Cell Volume 91.8 fl 80.9-99.0 Mean Corpuscular HGB 30.8 pg 25.9-32.7 Mean Corpuscular HGB Conc 33.5 g/dL 30.8-34.3 Platelet Count 333 K/uL 155-360 Red Cell Distri Width SD 44.7 fl 3-47 Red Cell Distri Width %CV 13.6 % 11.7-14.4 Mean Platelet Volume 10.9 fL 8.9-12.4 Neut% 70.3 % 40.4-72.8 Lymph % 17.0 % 17.0-46.1 [place] % 10.4 % 4.3-13.2 Eo% 2.0 % 0.0-6.6 Bas% 0.3 % 0.0-1.1 Neut# 6.84 K/uL 1.0-7.0 Lymph # 1.65 K/uL 0.8-3.4 [place] # 1.01 K/uL High 0.3-0.9 Eos # 0.19 K/uL 0.0-0.5 Baso # 0.03 K/uL 0.0-0.1 LDL Cholesterol Profile 02/03/2014 [facility] Cholesterol 219 mg/dL High 120-200 Triglycerides 299 mg/dL High 16-231 HDL Cholesterol 28 mg/dL Low 29-83 LDL-Cholesterol 131 mg/dL 62-185 Liver Function Tests 02/03/2014 [facility] Total Protein 8.2 g/dL High 6.3- 8.0 Albumin 3.7 g/dL 3.5-5.0 Globulin 4.5 g/dL High 1.9-4.3 Alb/Glob 0.8 ratio Bilirubin,Total 0.5 mg/dL 0.2-1.2 Bilirubin,Direct 0.1 mg/dL 0.1-0.4 Bilirubin,Indirect 0.4 mg/dL 0.0-0.9 Sgot/Ast 33 U/L 16-40 SGPT/Alt 51 U/L 30-65 Alkaline Phosphatase 85 U/L 50-136 Laboratory test finding 02/03/2014 [facility] Sedimentation Rate 57 mm/hr High 0-30 Basic Metabolic Panel 12/23/2013 [facility] Glucose 93 mg/dL 76-115 BUN 10 mg/dL 5-23 Creatinine 0.7 mg/dL 0.5-1.4 Glom Filtration Rate, Estimate >60 mL/min >60 If >60 mL/min >60 82 BUN/Creat 14.2 ratio Sodium 139 mmol/L 136-145 Potassium 3.8 mmol/L 3.5-5.1 Chloride 107 mmol/L 98-107 Carbon Dioxide 23 mEq/L 18-29 Anion Gap 13 mEq/L 8-16 Calcium 9.2 mg/dL 8.5-10.1 Liver Function Tests 12/23/2013 [facility] Total Protein 6.8 g/dL 6.3-8.0 Albumin 3.9 g/dL 3.5-5.0 Globulin 2.9 g/dL 1.9-4.3 Alb/Glob 1.3 ratio Bilirubin,Total 0.4 mg/dL 0.2-1.2 Bilirubin,Direct 0.1 mg/dL 0.1-0.4 Bilirubin,Indirect 0.3 mg/dL 0.0-0.9 Sgot/Ast 50 U/L High 16-40 SGPT/Alt 65 U/L 30-65 Alkaline Phosphatase 98 U/L 50-136 CBC W/Automated Diff 12/23/2013 [facility] White Blood Count 5.6 K/uL 3.1- 10.7 Red Blood Count 4.40 M/uL 3.90-5.40 Hemoglobin 13.5 gm/dL 11.6-15.8 Hematocrit 40.0 % 36.0-46.1 Mean Cell Volume 90.9 fl 80.9-99.0 Mean Corpuscular HGB 30.7 pg 25.9-32.7 Mean Corpuscular HGB Conc 33.8 g/dL 30.8-34.3 Platelet Count 259 K/uL 155-360 Red Cell Distri Width SD 48.2 fl High 3-47 Red Cell Distri Width %CV 14.9 % High 11.7-14.4 Mean Platelet Volume 10.9 fL 8.9-12.4 Neut% 61.6 % 40.4-72.8 Lymph % 26.3 % 17.0-46.1 [place] % 10.0 % 4.3-13.2 Eo% 1.6 % 0.0-6.6 Bas% 0.5 % 0.0-1.1 Neut# 3.45 K/uL 1.0-7.0 Lymph # 1.47 K/uL 0.8-3.4 [place] # 0.56 K/uL 0.3-0.9 Eos # 0.09 K/uL 0.0-0.5 Baso # 0.03 K/uL 0.0-0.1 Basic Metabolic Panel 08/20/2013 [facility] Glucose 69 mg/dL Low 76-115 BUN 11 mg/dL 5-23 Creatinine 0.5 mg/dL 0.5-1.4 Glom Filtration Rate, Estimate >60 mL/min >60 If >60 mL/min >60 83 BUN/Creat 22.0 ratio Sodium 140 mmol/L 136-145 Potassium 3.7 mmol/L 3.5-5.1 Chloride 105 mmol/L 98-107 Carbon Dioxide 27 mEq/L 18-29 Anion Gap 12 mEq/L 8-16 Calcium 8.6 mg/dL 8.5-10.1 CBC W/Automated Diff 08/20/2013 [facility] White Blood Count 7.3 K/uL 3.1- 10.7 Red Blood Count 3.97 M/uL 3.90-5.40 Hemoglobin 11.4 gm/dL Low 11.6-15.8 Hematocrit 35.8 % Low 36.0-46.1 Mean Cell Volume 90.2 fl 80.9-99.0 Mean Corpuscular HGB 28.7 pg 25.9-32.7 Mean Corpuscular HGB Conc 31.8 g/dL 30.8-34.3 Platelet Count 263 K/uL 155-360 Red Cell Distri Width SD 50.7 fl High 3-47 Red Cell Distri Width %CV 15.6 % High 11.7-14.4 Mean Platelet Volume 10.7 fL 8.9-12.4 Neut% 65.6 % 40.4-72.8 Lymph % 23.3 % 17.0-46.1 [place] % 9.9 % 4.3-13.2 Eo% 0.8 % 0.0-6.6 Bas% 0.4 % 0.0-1.1 Neut# 4.76 K/uL 1.0-7.0 Lymph # 1.69 K/uL 0.8-3.4 [place] # 0.72 K/uL 0.3-0.9 Eos # 0.06 K/uL 0.0-0.5 Baso # 0.03 K/uL 0.0-0.1 Laboratory test 08/20/2013 [facility] C-Reactive 1.24 mg/L 0.00-3.00 84 finding Protein,Cardiac Sedimentation Rate 31 mm/hr High 0-30 LDL Cholesterol Profile 08/20/2013 [facility] Cholesterol 172 mg/dL 120- 200 Triglycerides 154 mg/dL 16-231 HDL Cholesterol 45 mg/dL 29-83 LDL-Cholesterol 96 mg/dL 62-185 Liver Function Tests 08/20/2013 [facility] Total Protein 6.8 g/dL 6.3-8.0 Albumin 3.1 g/dL Low 3.5-5.0 Globulin 3.7 g/dL 1.9-4.3 Alb/Glob 0.8 ratio Bilirubin,Total 0.3 mg/dL 0.2-1.2 Bilirubin,Direct < 0.1 mg/dL Low 0.1-0.4 Bilirubin,Indirect 0.2 mg/dL 0.0-0.9 Sgot/Ast 12 U/L Low 16-40 SGPT/Alt 20 U/L Low 30-65 Alkaline Phosphatase 79 U/L 50-136 Laboratory test 08/20/2013 [facility] Thyroid Stim 1.64 uIU/mL 0.49-4.67 finding Hormone Surgical 06/12/2013 [facility] S RUN DATE: 85 Pathology 06/16/ <SEE NOTE> CBC Auto Diff 03/27/2013 [facility] White Blood 6.4 10^3/uL 4.8- 10.8 Count Red Blood Count 4.04 10^6/uL 4.0-5.4 Hemoglobin 11.5 g/dL Low 12.0-16.0 Hematocrit 35 % 35-47 Mean Corpuscular Volume 87 fL 80-97 Mean Corpuscular Hemoglobin 29 pg 27-31 Mean Corpuscular HGB Conc 33 g/dL 31-36 Red Cell Distribution Width 14 % 10.5-15 Platelet Count 297 10^3/uL 150-450 Mean Platelet Volume 8 um3 7.4-10.4 Abs Neutrophils 3.9 10^3/uL 1.5-7.7 Abs Lymphocytes 1.5 10^3/uL 1.0-4.8 Abs Monocytes 0.8 10^3/uL 0-0.8 Abs Eosinophils 0.2 10^3/uL 0-0.6 Abs Basophils 0 10^3/uL 0-0.2 Abs Nucleated RBC 0 10^3/uL Granulocyte % 60.4 % 38-83 Lymphocyte % 23.3 % Low 25-47 Monocyte % 11.9 % High 1-9 Eosinophil % 3.7 % 0-6 Basophil % 0.7 % 0-2 Nucleated Red Blood Cells % 0.1 Basic Metabolic Panel 03/27/2013 [facility] Sodium 136 mmol/L 133- 145 Potassium 4.1 mmol/L 3.5-5.0 Chloride 105 mmol/L 101-111 Co2 Carbon Dioxide 25.0 mmol/L 22-32 Anion Gap 6.0 mmol/L 2-11 Glucose 86 mg/dL 70-100 Blood Urea Nitrogen 14 mg/dL 6-24 Creatinine 0.70 mg/dL 0.50-1.40 BUN/Creatinine Ratio 20.0 8-20 Calcium 8.8 mg/dL 8.1-9.9 Egfr Non- 83.5 >60 Egfr 107.3 >60 86 Lipid Profile 03/27/2013 [facility] Triglycerides 149 mg/dL 40-200 (Trig/Chol/HDL) Cholesterol 179 mg/dL Less than 200 HDL Cholesterol 32 mg/dL Low 40-60 87 Cholesterol/HDL Ratio 5.6 Average High 1-4.44 LDL Cholesterol 117.2 mg/dL High Less Than 100 88 Liver Function Panel 03/27/2013 [facility] Total Protein 6.9 g/dL 6.2-8.1 Albumin 3.1 g/dL Low 3.2-5.2 Globulin 3.8 g/dL 2-4 Albumin/Globulin Ratio 0.8 Low 1-3 Total Bilirubin 0.5 mg/dL 0.4-1.5 Direct Bilirubin 0.1 mg/dL 0.1-0.5 Indirect Bilirubin 0.4 mg/dL 0.3-1.0 Alkaline Phosphatase 72 U/L 30-110 Alt 16 U/L 14-54 Ast 20 U/L 12-42 Laboratory test 03/27/2013 [facility] TSH (Thyroid 1.32 miu/mL 0.34- 5.60 finding Stimulating Horm) Amylase 61 U/L 20-120 Lipase 25 U/L 22-51 Erythrocyte Sed Rate 89 mm/Hr High 0-40 CRP High Sensitivity 21.5 mg/L 89 CA 125 Antigen 9.1 U/mL 2.0-35.0 90 1 PER NCEP ATP III GUIDELINES: RESULTS LOWER THAN 40 MG/DL ARE SUGGESTIVE OF INCREASED RISK FOR CORONARY ARTERY DISEASE. RESULTS > OR=TO 60 MG/DL ARE CONSIDERED A NEGATIVE RISK FACTOR. 2 INTERPRETATION OF CHOL-HDL RATIO CHD RISK FEMALE MALE VERY HIGH >8.3 >14.3 HIGH 5.6- 8.3 6.7- 14.3 AVERAGE 3.7- 5.6 4.0- 6.7 BELOW AVERAGE 2.5- 3.7 2.7- 4.0 PROTECTED <2.5 <2.7 3 PER NCEP ATP III GUIDELINES: OPTIMAL < 100 NEAR OPTIMAL 100 - 129 BORDERLINE HIGH 130 - 159 HIGH 160 - 189 VERY HIGH > 189 4 NORMAL KIDNEY FUNCTION OR MILD DISEASE - GFR >OR=60 CHRONIC KIDNEY DISEASE - GFR 15 - 59 RENAL FAILURE - GFR <15 Est. GFR calculation based on the MDRD study equation, which assumes a steady state for creatinine. Est. GFR should not be used for medication dosing. 5 Performed using Siemens Cascade immunoassay. Care must be taken when interpreting HbA1c results in patients with a hemoglobin variant or decreased erythrocyte lifespan. Values 5.7 - 6.4% suggest prediabetes. Values >=6.5% are diagnostic for diabetes. REFERENCE: DIABETES CARE 2018: 41([id number]). 6 A REVIEW OF THE LITERATURE SUGGESTS THE FOLLOWING RANGES FOR THE CLASSIFICATION OF 25-OH VITAMIN D STATUS: VITAMIN D STATUS 25-OH VITAMIN D DEFICIENCY <20 NG/ML INSUFFICIENCY 20-30 NG/ML SUFFICIENCY 31 - 100 NG/ML TOXICITY > 100 NG/ML A PEDIATRIC REFERENCE RANGE HAS NOT BEEN ESTABLISHED USING THIS METHOD. 7 A REVIEW OF THE LITERATURE SUGGESTS THE FOLLOWING RANGES FOR THE CLASSIFICATION OF 25-OH VITAMIN D STATUS: VITAMIN D STATUS 25-OH VITAMIN D DEFICIENCY <20 NG/ML INSUFFICIENCY 20-30 NG/ML SUFFICIENCY 31 - 100 NG/ML TOXICITY > 100 NG/ML A PEDIATRIC REFERENCE RANGE HAS NOT BEEN ESTABLISHED USING THIS METHOD. 8 PER NCEP ATP III GUIDELINES: OPTIMAL < 100 NEAR OPTIMAL 100 - 129 BORDERLINE HIGH 130 - 159 HIGH 160 - 189 VERY HIGH > 189 9 Performed using Siemens Cascade immunoassay. Care must be taken when interpreting HbA1c results in patients with a hemoglobin variant or decreased erythrocyte lifespan. Values 5.7 - 6.4% suggest prediabetes. Values >=6.5% are diagnostic for diabetes. REFERENCE: DIABETES CARE 2018: 41([id number]). 10 PER NCEP ATP III GUIDELINES: RESULTS LOWER THAN 40 MG/DL ARE SUGGESTIVE OF INCREASED RISK FOR CORONARY ARTERY DISEASE. RESULTS > OR=TO 60 MG/DL ARE CONSIDERED A NEGATIVE RISK FACTOR. 11 INTERPRETATION OF CHOL-HDL RATIO CHD RISK FEMALE MALE VERY HIGH >8.3 >14.3 HIGH 5.6- 8.3 6.7- 14.3 AVERAGE 3.7- 5.6 4.0- 6.7 BELOW AVERAGE 2.5- 3.7 2.7- 4.0 PROTECTED <2.5 <2.7 12 UNABLE TO CALCULATE VALID LDL DUE TO INTERFERENCE FROM ELEVATED TRIGLYCERIDES (GREATER THAN 300 MG/DL). SEE RESULT FOR DIRECT LDL. 13 NORMAL KIDNEY FUNCTION OR MILD DISEASE - GFR >OR=60 CHRONIC KIDNEY DISEASE - GFR 15 - 59 RENAL FAILURE - GFR <15 Est. GFR calculation based on the MDRD study equation, which assumes a steady state for creatinine. Est. GFR should not be used for medication dosing. 14 Therapeutic target for the treatment of diabetes mellitus patients is <7% HBA1C, and in selective patients <6.0%. Please refer to [place] [employer] diabetic care guidelines for further information. 15 [id number] Desirable: <150 Borderline High: 150-199 High: 200-499 Very High: >500 18 Desirable: <200 Borderline High: 200-239 High: >239 19 Low: <40 Desirable: 40-60 High: >60 20 Desirable: <100 Near Optimal: 100-129 Borderline High: 130-159 High: 160-189 Very High: >189 21 [id number] 22 Because ethnic data is not always readily available, this report includes an eGFR for both -Americans and non- Americans. The National Kidney Disease Education Program (NKDEP) does not endorse the use of the MDRD equation for patients that are not between the ages of 18 and 70, are , have extremes of body size, muscle mass, or nutritional status, or are non- or non-. According to the National Kidney Foundation, irrespective of diagnosis, the stage of the disease is based on the level of kidney function: Stage Description GFR(mL/min/1.73 m(2)) 1 Kidney damage with normal or decreased GFR 90 2 Kidney damage with mild decrease in GFR 60-89 3 Moderate decrease in GFR 30-59 4 Severe decrease in GFR 15-29 5 Kidney failure <15 (or dialysis) 23 Because ethnic data is not always readily available, this report includes an eGFR for both -Americans and non- Americans. The National Kidney Disease Education Program (NKDEP) does not endorse the use of the MDRD equation for patients that are not between the ages of 18 and 70, are , have extremes of body size, muscle mass, or nutritional status, or are non- or non-. According to the National Kidney Foundation, irrespective of diagnosis, the stage of the disease is based on the level of kidney function: Stage Description GFR(mL/min/1.73 m(2)) 1 Kidney damage with normal or decreased GFR 90 2 Kidney damage with mild decrease in GFR 60-89 3 Moderate decrease in GFR 30-59 4 Severe decrease in GFR 15-29 5 Kidney failure <15 (or dialysis) 24 Desirable <150 Borderline high 150-199 High 200-499 Very High >500 25 Desirable <200 Borderline high 200-239 High >239 26 Low <40 Desirable: 40-60 High: >60 27 Desirable: <100 mg/dL Near Optimal: 100-129 mg/dL Borderline High: 130-159 mg/dL High: 160-189 mg/dL Very High: >189 mg/dL 28 Therapeutic target for the treatment of diabetes Mellitus patients is <7% HBA1C, and in selective patients <6.0%.Please refer to [employer] Diabetic care guidelines for further information. 29 [id number] 30 Because ethnic data is not always readily available, this report includes an eGFR for both -Americans and non- Americans. The National Kidney Disease Education Program (NKDEP) does not endorse the use of the MDRD equation for patients that are not between the ages of 18 and 70, are , have extremes of body size, muscle mass, or nutritional status, or are non- or non-. According to the National Kidney Foundation, irrespective of diagnosis, the stage of the disease is based on the level of kidney function: Stage Description GFR(mL/min/1.73 m(2)) 1 Kidney damage with normal or decreased GFR 90 2 Kidney damage with mild decrease in GFR 60-89 3 Moderate decrease in GFR 30-59 4 Severe decrease in GFR 15-29 5 Kidney failure <15 (or dialysis) 31 Desirable <150 Borderline high 150-199 High 200-499 Very High >500 32 Desirable <200 Borderline high 200-239 High >239 33 Low <40 Desirable: 40-60 High: >60 34 Desirable: <100 mg/dL Near Optimal: 100-129 mg/dL Borderline High: 130-159 mg/dL High: 160-189 mg/dL Very High: >189 mg/dL 35 Therapeutic target for the treatment of diabetes Mellitus patients is <7% HBA1C, and in selective patients <6.0%.Please refer to [employer] Diabetic care guidelines for further information. 36 [id number] TRIGS, CHOL ELEVATED MORE THAN LAST VISIT---DIET SHEET SENT TO PT 38 Because ethnic data is not always readily available, this report includes an eGFR for both -Americans and non- Americans. The National Kidney Disease Education Program (NKDEP) does not endorse the use of the MDRD equation for patients that are not between the ages of 18 and 70, are , have extremes of body size, muscle mass, or nutritional status, or are non- or non-. According to the National Kidney Foundation, irrespective of diagnosis, the stage of the disease is based on the level of kidney function: Stage Description GFR(mL/min/1.73 m(2)) 1 Kidney damage with normal or decreased GFR 90 2 Kidney damage with mild decrease in GFR 60-89 3 Moderate decrease in GFR 30-59 4 Severe decrease in GFR 15-29 5 Kidney failure <15 (or dialysis) 39 [id number] 41 Desirable <150 Borderline high 150-199 High 200-499 Very High >500 42 Desirable <200 Borderline high 200-239 High >239 43 Low <40 Desirable: 40-60 High: >60 44 Unable to calculate LDL as triglyceride is > 400 45 Therapeutic target for the treatment of diabetes Mellitus patients is <7% HBA1C, and in selective patients <6.0%.Please refer to [employer] Diabetic care guidelines for further information. 46 [id number] 47 Therapeutic target for the treatment of diabetes Mellitus patients is <7% HBA1C, and in selective patients <6.0%.Please refer to [employer] Diabetic care guidelines for further information. 48 Because ethnic data is not always readily available, this report includes an eGFR for both -Americans and non- Americans. The National Kidney Disease Education Program (NKDEP) does not endorse the use of the MDRD equation for patients that are not between the ages of 18 and 70, are , have extremes of body size, muscle mass, or nutritional status, or are non- or non-. According to the National Kidney Foundation, irrespective of diagnosis, the stage of the disease is based on the level of kidney function: Stage Description GFR(mL/min/1.73 m(2)) 1 Kidney damage with normal or decreased GFR 90 2 Kidney damage with mild decrease in GFR 60-89 3 Moderate decrease in GFR 30-59 4 Severe decrease in GFR 15-29 5 Kidney failure <15 (or dialysis) 49 Desirable <150 Borderline high 150-199 High 200-499 Very High >500 50 Desirable <200 Borderline high 200-239 High >239 51 Low <40 Desirable: 40-60 High: >60 52 Desirable: <100 mg/dL Near Optimal: 100-129 mg/dL Borderline High: 130-159 mg/dL High: 160-189 mg/dL Very High: >189 mg/dL 53 Test Performed by: [address] [address] Welder/Fabricator: Prakash Chino II, M.D., Ph.D. 54 [id number] 55 Desirable <150 Borderline high 150-199 High 200-499 Very High >500 56 Desirable <200 Borderline high 200-239 High >239 57 Low <40 Desirable: 40-60 High: >60 58 Desirable: <100 mg/dL Near Optimal: 100-129 mg/dL Borderline High: 130-159 mg/dL High: 160-189 mg/dL Very High: >189 mg/dL 59 Low risk: <1.00 Average risk: 1.00-3.00 High risk: >3.00 60 Therapeutic target for the treatment of diabetes Mellitus patients is <7% HBA1C, and in selective patients <6.0%.Please refer to [place] [employer] Diabetic care guidelines for further information. 61 Because ethnic data is not always readily available, this report includes an eGFR for both -Americans and non- Americans. The National Kidney Disease Education Program (NKDEP) does not endorse the use of the MDRD equation for patients that are not between the ages of 18 and 70, are , have extremes of body size, muscle mass, or nutritional status, or are non- or non-. According to the National Kidney Foundation, irrespective of diagnosis, the stage of the disease is based on the level of kidney function: Stage Description GFR(mL/min/1.73 m(2)) 1 Kidney damage with normal or decreased GFR 90 2 Kidney damage with mild decrease in GFR 60-89 3 Moderate decrease in GFR 30-59 4 Severe decrease in GFR 15-29 5 Kidney failure <15 (or dialysis) 62 Note: Persistent reduction for 3 months or more in an eGFR <60 mL/min/1.73 m2 defines CKD. Patients with eGFR values >/=60 mL/min/1.73 m2 may also have CKD if evidence of persistent proteinuria is present. The original MDRD equation for estimated GFR is not valid for patients less than 18 years of age. Additional information may be found at [email or web address]. 63 Reference Guidelines*: Desirable: ........... < 200 mg/dL Borderline High: ..... 200-239 mg/dL High: ................ >=240 mg/dL * The National Cholesterol Education Program (NCEP) 64 Reference Guidelines*: Normal: ............. < 150 mg/dL Borderline High: .... 150-199 mg/dL High: ............... 200-499 mg/dL Very High: .......... > 500 mg/dL * Source: National Cholesterol Education Program (NCEP) 65 Reference Guidelines*: Low HDL: ..... < 40 mg/dL Normal: ..... 40-60 mg/dL Desirable: ... > 60 mg/dL *The National Cholesterol Education Program(NCEP) 66 Reference Guidelines*: Optimal:........... <100 mg/dL Near Optimal....... 100-129 mg/dL Borderline High.... 130-159 mg/dL High............... 160-189 mg/dL Very High.......... >=190 mg/dL * Source: National Cholesterol Education Program (NCEP) 67 QUERY: Reflex add FT3? N QUERY: Reflex add FT4? Y 68 Reference Guidelines*: Desirable: ........... < 200 mg/dL Borderline High: ..... 200-239 mg/dL High: ................ >=240 mg/dL * The National Cholesterol Education Program (NCEP) 69 Reference Guidelines*: Normal: ............. < 150 mg/dL Borderline High: .... 150-199 mg/dL High: ............... 200-499 mg/dL Very High: .......... > 500 mg/dL * Source: National Cholesterol Education Program (NCEP) 70 Reference Guidelines*: Low HDL: ..... < 40 mg/dL Normal: ..... 40-60 mg/dL Desirable: ... > 60 mg/dL *The National Cholesterol Education Program(NCEP) 71 Reference Guidelines*: Optimal:........... <100 mg/dL Near Optimal....... 100-129 mg/dL Borderline High.... 130-159 mg/dL High............... 160-189 mg/dL Very High.......... >=190 mg/dL * Source: National Cholesterol Education Program (NCEP) 72 Note: Persistent reduction for 3 months or more in an eGFR <60 mL/min/1.73 m2 defines CKD. Patients with eGFR values >/=60 mL/min/1.73 m2 may also have CKD if evidence of persistent proteinuria is present. The original MDRD equation for estimated GFR is not valid for patients less than 18 years of age. Additional information may be found at [email or web address]. 73 Reference Guidelines*: Desirable: ........... < 200 mg/dL Borderline High: ..... 200-239 mg/dL High: ................ >=240 mg/dL * The National Cholesterol Education Program (NCEP) 74 Reference Guidelines*: Normal: ............. < 150 mg/dL Borderline High: .... 150-199 mg/dL High: ............... 200-499 mg/dL Very High: .......... > 500 mg/dL * Source: National Cholesterol Education Program (NCEP) 75 Reference Guidelines*: Low HDL: ..... < 40 mg/dL Normal: ..... 40-60 mg/dL Desirable: ... > 60 mg/dL *The National Cholesterol Education Program(NCEP) 76 Reference Guidelines*: Optimal:........... <100 mg/dL Near Optimal....... 100-129 mg/dL Borderline High.... 130-159 mg/dL High............... 160-189 mg/dL Very High.......... >=190 mg/dL * Source: National Cholesterol Education Program (NCEP) 77 Note: Persistent reduction for 3 months or more in an eGFR <60 mL/min/1.73 m2 defines CKD. Patients with eGFR values >/=60 mL/min/1.73 m2 may also have CKD if evidence of persistent proteinuria is present. The original MDRD equation for estimated GFR is not valid for patients less than 18 years of age. Additional information may be found at [email or web address]. 78 Note: Persistent reduction for 3 months or more in an eGFR <60 mL/min/1.73 m2 defines CKD. Patients with eGFR values >/=60 mL/min/1.73 m2 may also have CKD if evidence of persistent proteinuria is present. The original MDRD equation for estimated GFR is not valid for patients less than 18 years of age. Additional information may be found at [email or web address]. 79 CYTOLOGY SCREENER - GRADE CHECKER @ 12/30 Screened by: Vilma Alexandre [facility](ASCP) PAP: FINAL REPORT SPECIMEN ADEQUACY: SPECIMEN SATISFACTORY FOR INTERPRETATION INTERPRETATION: NEGATIVE FOR INTRAEPITHELIAL LESION OR MALIGNANCY COMMENT: ATROPHIC PATTERN THINPREP PREPARED PAP SLIDE # Prepared in the Cytology laboratory from the ThinPrep sample is 1 ThinPrep smear. PAP ACCESSI QUESTIONNAIRE 11/28 PERTINENT CLINICAL HISTORY FOR PAP (GRADE CHECKER) CYTOLOGY (Check all that apply): ? Post ? Menopause? Y LMP date: If patient had related surgical procedure: Related Therapy: Significant Clinical History: V76.2 DISCLAIMER: The Pap smear is a screening test and not a diagnostic procedure. False negative and false positive results can and do occur for a number of reasons. Regular screening provides an aid in detecting treatable cervical abnormalities, but should not be used as the only means for detecting cervical dysplasia and carcinoma. Signed Electronically signed VILMA ALEXANDRE 06/22/14 1444 80 Note: Persistent reduction for 3 months or more in an eGFR <60 mL/min/1.73 m2 defines CKD. Patients with eGFR values >/=60 mL/min/1.73 m2 may also have CKD if evidence of persistent proteinuria is present. The original MDRD equation for estimated GFR is not valid for patients less than 18 years of age. Additional information may be found at [email or web address]. 81 Note: Persistent reduction for 3 months or more in an eGFR <60 mL/min/1.73 m2 defines CKD. Patients with eGFR values >/=60 mL/min/1.73 m2 may also have CKD if evidence of persistent proteinuria is present. The original MDRD equation for estimated GFR is not valid for patients less than 18 years of age. Additional information may be found at [email or web address]. 82 Note: Persistent reduction for 3 months or more in an eGFR <60 mL/min/1.73 m2 defines CKD. Patients with eGFR values >/=60 mL/min/1.73 m2 may also have CKD if evidence of persistent proteinuria is present. The original MDRD equation for estimated GFR is not valid for patients less than 18 years of age. Additional information may be found at [email or web address]. 83 Note: Persistent reduction for 3 months or more in an eGFR <60 mL/min/1.73 m2 defines CKD. Patients with eGFR values >/=60 mL/min/1.73 m2 may also have CKD if evidence of persistent proteinuria is present. The original MDRD equation for estimated GFR is not valid for patients less than 18 years of age. Additional information may be found at [email or web address]. 84 Relative Risk for Future Cardiovascular Event Low <1.00 Average 1.00 - 3.00 High >3.00 85 RUN DATE: 06/16/13 [facility] LAB LIVE PAGE 1 RUN TIME: [address] [place] [address] Specimen Inquiry Name: MARIBELL HARDEN : [address]: Billy Thomas MD Acct: [id number] Unit: [id number] AGE: 67 Location: [facility] Re06/12/13 SEX: F Status: REG REF SPEC: [id number] GEOVANNY: 06/12/13 DR: Billy Thomas MD REQ: [id number] RECD: 06/12/13 STATUS: FERN STOLL DR: Yancy Lisa MD _ ORDERED: LEVEL IV/3 FINAL DIAGNOSIS 1. Colon, cecum, biopsy: Inflammatory polyps (see comment). 2. Colon, right, biopsy: A. Chronic active colitis with marked acute inflammatory infiltrate, ulceration, and obliteration of crypts, compatible with clinical impression of ulcerative colitis. B. No evidence of dysplasia. 3. Colon, sigmoid, biopsy: A. Chronic active colitis with marked acute inflammatory infiltrate, ulceration, and obliteration of crypts, compatible with clinical impression of ulcerative colitis. B. No evidence of dysplasia. COMMENTS: Sections from specimen 1 show polypoid fragments of mucosa with epithelial ulceration and marked chronic active inflammation. In one of the fragments there is no evidence of dysplasia. In the other two fragments, glandular elements are entirely obliterated by the inflammatory infiltrate and surface epithelium is completely ulcerated, precluding assessment for dysplasia. CONTINUED ON NEXT PAGE * ML=Testing performed at Main Lab DEPARTMENT OF PATHOLOGY, [facility] [employer] [place], [place] [address] Beau Funez M.D. Director [facility] Permit #[id number] RUN DATE: 06/16/13 [facility] LAB LIVE PAGE 2 RUN TIME: 14[address] [employer] [place], [place] [address] Specimen Inquiry Patient: MARIBELL HARDEN [id number] (Continued) CLINICAL HISTORY (Continued) CLINICAL HISTORY Screening colonoscopy with diarrhea POST-OPERATIVE DIAGNOSIS Screening colonoscopy into terminal ileum, prep good - 2 small cecal polyps removed; diffuse colitis (appearing like ulcerative colitis) biopsied; normal ileum GROSS DESCRIPTION 1. The specimen is received in formalin labeled Maribell Harden, Biopsy Cecal Polyps, and consists of three billingsley-white portions of tissue that measure 0.2 x 0.2 x 0.1 cm., 0.2 x 0.2 x 0.1 cm. and 0.1 x 0.1 x 0.1 cm. Submitted entirely, one cassette. 2. The specimen is received in formalin labeled Maribell Harden, Biopsy Right Colon Colitis, and consists of three billingsley-white portions of tissue that measure 0.4 x 0.2 x 0.2 cm., 0.3 x 0.2 x 0.2 cm., and 0.3 x 0.2 x 0.2 cm. Submitted entirely, one cassette. 3. The specimen is received in formalin labeled Maribell Harden, Biopsy Sigmoid Colon, and consists of three billingsley-white portions of tissue that measure 0.2 x 0.2 x 0.2 cm., 0.3 .x 0.2 x 0.2 cm. and 0.3 x 0.2 x 0.2 cm. Submitted entirely, one cassette. Signed (signature on file) Saira Del Toro MD 1456 END OF REPORT * ML=Testing performed at Main Lab DEPARTMENT OF PATHOLOGY, [address] [place] [address] Beau Funez M.D. Director [facility] Permit #[id number] 86 Because ethnic data is not always readily available, this report includes an eGFR for both -Americans and non- Americans. The National Kidney Disease Education Program (NKDEP) does not endorse the use of the MDRD equation for patients that are not between the ages of 18 and 70, are , have extremes of body size, muscle mass, or nutritional status, or are non- or non-. According to the National Kidney Foundation, irrespective of diagnosis, the stage of the disease is based on the level of kidney function: Stage Description GFR(mL/min/1.73 m(2)) 1 Kidney damage with normal or decreased GFR 90 2 Kidney damage with mild decrease in GFR 60-89 3 Moderate decrease in GFR 30-59 4 Severe decrease in GFR 15-29 5 Kidney failure <15 (or dialysis) 87 HDL Interpretation: Undesirable: High Risk: Less than 40 MG/DL Desirable: Low Risk: Greater than 60 MG/DL 88 LDL Interpretation: Low Risk Optimal Level: LDL Less than 100 MG/DL Near or Above Optimal: LDL 100-129 MG/DL Borderline High Risk: LDL 130-159 MG/DL High Risk: LDL 160-189 MG/DL Very High Risk: LDL Greater than 189 MG/DL 89 Less Than 1.0......Low Risk of Cardiovascular Disease 1.0-3.0............Medium Risk (<2 Fold Increase) Greater Than 3.0...High Risk (Approximately 2-Fold Increase) 90 The CA 125 assay is not recommended as a cancer screening test, but rather as an aid in monitoring response to therapy for patients with epithelial ovarian cancer. Serial testing for patients CA 125 assay values should be used in conjunction with other methods used for screening ovarian cancer. Assayed by Chemiluminescence Microparticle Immunoassay on the [employer] Access[employer]. The values obtained with different assay methods or kits cannot be used interchangeably. Procedures Date Code Description Status 08/28/2018 40317 EKG Completed 03/19/2018 [id number] Mammogram Completed 07/18/2017 69331 Visual Screening Test Completed 07/18/2017 50370 EKG Completed 07/18/2017 98281 Audiometry, Bekesy, Screening Completed 06/07/2016 96144 Visual Screening Test Completed 06/07/2016 40852 EKG Completed 06/07/2016 88071 Audiometry, Bekesy, Screening Completed 05/31/2015 02375 Visual Screening Test Completed 05/31/2015 65442 EKG Completed 05/31/2015 41922 Audiometry, Bekesy, Screening Completed 05/26/2014 00460 EKG Completed 11/19/2012 [id number] Colonoscopy Completed 03/25/2009 38154 Spirometry Completed 09/01/2008 61241 Tympanometry Completed 01/29/2007 38383 Tympanometry Completed 07/27/2005 51213 Tympanometry Completed 08/23/2004 08583 Tympanometry Completed 03/23/1995 19291 Unlisted Therapeutic/Diagnostic Injection Completed 03/23/1995 26257 Unlisted Therapeutic/Diagnostic Injection Completed Encounters Type Date Location Provider Dx Diagnosis Office Visit 02/24/2019 [facility] Prakash Lim, I10 Essential ( primary) 11:15a N.P. hypertension E78.2 Mixed hyperlipidemia R73.01 Impaired fasting glucose K51.90 Ulcerative colitis, unspecified, without complications M15.9 Polyosteoarthritis, unspecified K30 Functional dyspepsia K21.0 Gastro-esophageal reflux disease with esophagitis L20.9 Atopic dermatitis, unspecified J30.9 Allergic rhinitis, unspecified R94.5 Abnormal results of liver function studies J45.909 Unspecified asthma, uncomplicated E87.6 Hypokalemia H53.30 Unspecified disorder of binocular vision E55.9 Vitamin D deficiency, unspecified Z68.28 Body mass index (BMI) 28.0-28.9, adult Office Visit 02/10/2019 8:45a [facility] Prakash Lim, I10 Essential (primary) N.P. hypertension E78.2 Mixed hyperlipidemia R73.01 Impaired fasting glucose K51.90 Ulcerative colitis, unspecified, without complications M15.9 Polyosteoarthritis, unspecified K30 Functional dyspepsia K21.0 Gastro-esophageal reflux disease with esophagitis L20.9 Atopic dermatitis, unspecified J30.9 Allergic rhinitis, unspecified R94.5 Abnormal results of liver function studies J45.909 Unspecified asthma, uncomplicated E87.6 Hypokalemia H53.30 Unspecified disorder of binocular vision E55.9 Vitamin D deficiency, unspecified Z68.28 Body mass index (BMI) 28.0-28.9, adult Office Visit 02/05/2019 9:00a [facility] Prakash iLm, I10 Essential (primary) N.P. hypertension E78.2 Mixed hyperlipidemia R73.01 Impaired fasting glucose K51.90 Ulcerative colitis, unspecified, without complications M15.9 Polyosteoarthritis, unspecified K30 Functional dyspepsia K21.0 Gastro-esophageal reflux disease with esophagitis L20.9 Atopic dermatitis, unspecified J30.9 Allergic rhinitis, unspecified R94.5 Abnormal results of liver function studies J45.909 Unspecified asthma, uncomplicated E87.6 Hypokalemia H53.30 Unspecified disorder of binocular vision E55.9 Vitamin D deficiency, unspecified Z68.28 Body mass index (BMI) 28.0-28.9, adult Office Visit 08/28/2018 8:30a [facility] Prakash Lim, I10 Essential (primary) N.P. hypertension E78.2 Mixed hyperlipidemia R73.01 Impaired fasting glucose K51.90 Ulcerative colitis, unspecified, without complications M15.9 Polyosteoarthritis, unspecified K30 Functional dyspepsia K21.0 Gastro-esophageal reflux disease with esophagitis L20.9 Atopic dermatitis, unspecified J30.9 Allergic rhinitis, unspecified R94.5 Abnormal results of liver function studies J45.909 Unspecified asthma, uncomplicated Z68.28 Body mass index (BMI) 28.0-28.9, adult E87.6 Hypokalemia H53.30 Unspecified disorder of binocular vision E55.9 Vitamin D deficiency, unspecified Z00.01 Encounter for general adult medical exam w abnormal findings Z23 Encounter for immunization Office Visit 08/06/2018 3:45p [facility] Yancy Lisa I10 Patrica ( primary) Farrukh Sanchez hypertension E78.2 Mixed hyperlipidemia R73.01 Impaired fasting glucose K51.90 Ulcerative colitis, unspecified, without complications M15.9 Polyosteoarthritis, unspecified K30 Functional dyspepsia K21.0 Gastro-esophageal reflux disease with esophagitis L20.9 Atopic dermatitis, unspecified J30.9 Allergic rhinitis, unspecified R94.5 Abnormal results of liver function studies J45.909 Unspecified asthma, uncomplicated E87.6 Hypokalemia H53.30 Unspecified disorder of binocular vision E55.9 Vitamin D deficiency, unspecified Office Visit 02/13/2018 8:30a [facility] Yancy Lisa I10 Essential ( primary) Farrukh Sanchez hypertension E78.2 Mixed hyperlipidemia R73.01 Impaired fasting glucose K51.90 Ulcerative colitis, unspecified, without complications M15.9 Polyosteoarthritis, unspecified K30 Functional dyspepsia K21.0 Gastro-esophageal reflux disease with esophagitis L20.9 Atopic dermatitis, unspecified J30.9 Allergic rhinitis, unspecified R94.5 Abnormal results of liver function studies J45.909 Unspecified asthma, uncomplicated E87.6 Hypokalemia H53.30 Unspecified disorder of binocular vision E55.9 Vitamin D deficiency, unspecified Office Visit 02/06/2018 8:[facility] [place] [facility] Farrukh Sanchez hypertension E78.2 Mixed hyperlipidemia R73.01 Impaired fasting glucose K51.90 Ulcerative colitis, unspecified, without complications M15.9 Polyosteoarthritis, unspecified K30 Functional dyspepsia K21.0 Gastro-esophageal reflux disease with esophagitis L20.9 Atopic dermatitis, unspecified J30.9 Allergic rhinitis, unspecified R94.5 Abnormal results of liver function studies J45.909 Unspecified asthma, uncomplicated E87.6 Hypokalemia H53.30 Unspecified disorder of binocular vision E55.9 Vitamin D deficiency, unspecified Office Visit 07/18/2017 10:15a [facility] Jae Venegas Z00.01 Encounter for [facility] general adult medical exam w abnormal findings Z00.01 Encounter for general adult medical exam w abnormal findings E78.2 Mixed hyperlipidemia K51.90 Ulcerative colitis, unspecified, without complications I10 Essential (primary) hypertension L23.7 Allergic contact dermatitis due to plants, except food Office Visit 04/11/2017 9:30a [facility] Jae Venegas E78.2 Mixed hyperlipidemia [employer]D [employer]ER M15.9 Polyosteoarthritis, unspecified K30 Functional dyspepsia K51.90 Ulcerative colitis, unspecified, without complications K21.0 Gastro-esophageal reflux disease with esophagitis R73.01 Impaired fasting glucose Office Visit 03/26/2017 11:30a [facility] Jae Venegas E78.2 Mixed hyperlipidemia [employer]D [employer]ER M15.9 Polyosteoarthritis, unspecified K51.90 Ulcerative colitis, unspecified, without complications K21.0 Gastro-esophageal reflux disease with esophagitis I10 Essential (primary) hypertension Office Visit 02/14/2017 3:30p [facility] Jae Venegas E78.2 Mixed hyperlipidemia [employer]D [employer]ER R73.01 Impaired fasting glucose M15.9 Polyosteoarthritis, unspecified K51.90 Ulcerative colitis, unspecified, without complications Office Visit 01/17/2017 8:45a [facility] Jae Venegas K51.90 Ulcerative colitis, [employer]D [employer]ER unspecified, without complications K21.0 Gastro-esophageal reflux disease with esophagitis J30.2 Other seasonal allergic rhinitis E78.2 Mixed hyperlipidemia I10 Essential (primary) hypertension R73.01 Impaired fasting glucose M15.9 Polyosteoarthritis, unspecified R53.83 Other fatigue M79.605 Pain in left leg Office Visit 06/07/2016 8:30a [facility] Jae Venegas Z00.01 Encounter for [facility] general adult medical exam w abnormal findings E78.2 Mixed hyperlipidemia I10 Essential (primary) hypertension K51.90 Ulcerative colitis, unspecified, without complications K21.0 Gastro-esophageal reflux disease with esophagitis J30.2 Other seasonal allergic rhinitis M15.9 Polyosteoarthritis, unspecified Office Visit 05/17/2016 8:30a [facility] Jae Venegas [employer] R73.01 Impaired fasting glucose R94.5 Abnormal results of liver function studies E78.2 Mixed hyperlipidemia I10 Essential (primary) hypertension K51.90 Ulcerative colitis, unspecified, without complications K21.0 Gastro-esophageal reflux disease with esophagitis J30.2 Other seasonal allergic rhinitis M15.9 Polyosteoarthritis, unspecified K30 Functional dyspepsia R73.9 Hyperglycemia, unspecified Office Visit 05/03/2016 9:00a [place] [facility] Jae Venegas [facility] R73.01 Impaired fasting glucose R94.5 Abnormal results of liver function studies E78.2 Mixed hyperlipidemia I10 Essential (primary) hypertension K51.90 Ulcerative colitis, unspecified, without complications K21.0 Gastro-esophageal reflux disease with esophagitis J30.2 Other seasonal allergic rhinitis M15.9 Polyosteoarthritis, unspecified R53.83 Other fatigue Office Visit 01/21/2016 9:00a [place] Yancy Lisa, R73.01 Impaired fasting M.D. glucose R94.5 Abnormal results of liver function studies E78.2 Mixed hyperlipidemia I10 Essential (primary) hypertension K51.90 Ulcerative colitis, unspecified, without complications K30 Functional dyspepsia K21.0 Gastro-esophageal reflux disease with esophagitis J30.2 Other seasonal allergic rhinitis M15.9 Polyosteoarthritis, unspecified J45.909 Unspecified asthma, uncomplicated E87.6 Hypokalemia H53.30 Unspecified disorder of binocular vision M25.561 Pain in right knee Office Visit 01/04/2016 8:30a [place] [facility] Yancy Lisa, R73.01 Impaired fasting M.D. glucose R94.5 Abnormal results of liver function studies E78.2 Mixed hyperlipidemia I10 Essential (primary) hypertension K51.90 Ulcerative colitis, unspecified, without complications K30 Functional dyspepsia K21.0 Gastro-esophageal reflux disease with esophagitis J30.2 Other seasonal allergic rhinitis M15.9 Polyosteoarthritis, unspecified J45.909 Unspecified asthma, uncomplicated E87.6 Hypokalemia H53.30 Unspecified disorder of binocular vision M25.561 Pain in right knee Office Visit 10/01/2015 4:15p [place] Yancy Lisa, R73.01 Impaired fasting M.D. glucose R94.5 Abnormal results of liver function studies E78.2 Mixed hyperlipidemia I10 Essential (primary) hypertension K51.90 Ulcerative colitis, unspecified, without complications K30 Functional dyspepsia K21.0 Gastro-esophageal reflux disease with esophagitis J30.2 Other seasonal allergic rhinitis M15.9 Polyosteoarthritis, unspecified J45.909 Unspecified asthma, uncomplicated E87.6 Hypokalemia H53.30 Unspecified disorder of binocular vision M25.561 Pain in right knee Z23 Encounter for immunization Office Visit 05/31/2015 9:15a [place] Yancy Lisa V70.0 Examination General Mario Sanchez. Medical Routine [facility] 790.21 Impaired Fasting Glucose 794.8 Liver Study Abnormal 272.2 Hyperlipidemia Mixed 401.1 Hypertension Benign 556.9 Ulcerative Colitis Unspec 536.8 Stomach Dyspepsia & Other Spec Disorders Of Function 530.11 Esophagitis Reflux V85.24 Body Mass Index 28.0-28.9 Adult 477.8 Rhinitis Allergic Due To Other Allergen 715.90 Osteoarthrosis Unspec Genlzd Or Localized Site Unspec 493.90 Asthma Unspec W/O Status Asthmaticus 276.8 Hypopotassemia 368.30 Bifocal Vision 719.46 Pain Joint Lower Leg Office Visit 04/26/2015 9:00a [place] [facility] Yancy Lisa MReynaldo, 790.21 Impaired Fasting M.D. Glucose 794.8 Liver Study Abnormal 272.2 Hyperlipidemia Mixed 401.1 Hypertension Benign 556.9 Ulcerative Colitis Unspec 536.8 Stomach Dyspepsia & Other Spec Disorders Of Function 530.11 Esophagitis Reflux 477.8 Rhinitis Allergic Due To Other Allergen 715.90 Osteoarthrosis Unspec Genlzd Or Localized Site Unspec 493.90 Asthma Unspec W/O Status Asthmaticus 276.8 Hypopotassemia 368.30 Bifocal Vision Office Visit 04/05/2015 8:45a [place] [facility] Yacny Lisa 272.2 Hyperlipidemia Mixed Daniel SanchezD. 401.1 Hypertension Benign 556.9 Ulcerative Colitis Unspec 536.8 Stomach Dyspepsia & Other Spec Disorders Of Function 530.11 Esophagitis Reflux 477.8 Rhinitis Allergic Due To Other Allergen 715.90 Osteoarthrosis Unspec Genlzd Or Localized Site Unspec 493.90 Asthma Unspec W/O Status Asthmaticus 276.8 Hypopotassemia Office Visit 01/25/2015 9:45a [place] [facility] Yancy Lisa., 276.8 Hypopotassemia M.D. 272.2 Hyperlipidemia Mixed 401.1 Hypertension Benign 556.9 Ulcerative Colitis Unspec 536.8 Stomach Dyspepsia & Other Spec Disorders Of Function 530.11 Esophagitis Reflux 477.8 Rhinitis Allergic Due To Other Allergen 715.90 Osteoarthrosis Unspec Genlzd Or Localized Site Unspec 493.90 Asthma Unspec W/O Status Asthmaticus Office Visit 12/14/2014 9:15a [place] [facility] Yancy Lisa., 276.8 Hypopotassemia M.D. 272.2 Hyperlipidemia Mixed 401.1 Hypertension Benign 556.9 Ulcerative Colitis Unspec 536.8 Stomach Dyspepsia & Other Spec Disorders Of Function 530.11 Esophagitis Reflux 477.8 Rhinitis Allergic Due To Other Allergen 715.90 Osteoarthrosis Unspec Genlzd Or Localized Site Unspec 493.90 Asthma Unspec W/O Status Asthmaticus Office Visit 09/15/2014 9:00a [place] [facility] Lauren Raygoza, 401.1 Hypertension Benign [employer]D [employer]OLLER 272.2 Hyperlipidemia Mixed 556.9 Ulcerative Colitis Unspec 276.8 Hypopotassemia 477.8 Rhinitis Allergic Due To Other Allergen 530.11 Esophagitis Reflux 536.8 Stomach Dyspepsia & Other Spec Disorders Of Function Office Visit 09/01/2014 3:00p [place] [facility] Lauren Raygoza, 276.8 Hypopotassemia FUND CONTROLLER 272.2 Hyperlipidemia Mixed 401.1 Hypertension Benign 556.9 Ulcerative Colitis Unspec 536.8 Stomach Dyspepsia & Other Spec Disorders Of Function V04.81 Need For Prophylactic Vaccination & Inoculation/Influenza Office Visit 06/18/2014 8:30a [place] [facility] Lauren Raygoza, V72.31 Routine [employer]ER Examination 401.1 Hypertension Benign 530.11 Esophagitis Reflux 477.8 Rhinitis Allergic Due To Other Allergen 715.90 Osteoarthrosis Unspec Genlzd Or Localized Site Unspec 536.8 Stomach Dyspepsia & Other Spec Disorders Of Function 493.90 Asthma Unspec W/O Status Asthmaticus 556.9 Ulcerative Colitis Unspec 276.8 Hypopotassemia 780.79 Malaise And Fatigue Other 272.2 Hyperlipidemia Mixed Office Visit 05/26/2014 2:15p [place] [facility] Sloan Humanesha 401.1 Hypertension Marsha Sanchez M.D. 530.11 Esophagitis Reflux 477.8 Rhinitis Allergic Due To Other Allergen 715.90 Osteoarthrosis Unspec Genlzd Or Localized Site Unspec 536.8 Stomach Dyspepsia & Other Spec Disorders Of Function 493.90 Asthma Unspec W/O Status Asthmaticus 556.9 Ulcerative Colitis Unspec 276.8 Hypopotassemia 780.79 Malaise And Fatigue Other 272.2 Hyperlipidemia Mixed V70.0 Examination General Medical Routine [facility] V85.23 Body Mass Index 27.0-27.9 Adult Office Visit 03/26/2014 4:00p [place] [facility] [place] 401.1 Hypertension Benign VANESSA Jack 530.11 Esophagitis Reflux 477.8 Rhinitis Allergic Due To Other Allergen 715.90 Osteoarthrosis Unspec Genlzd Or Localized Site Unspec 536.8 Stomach Dyspepsia & Other Spec Disorders Of Function 493.90 Asthma Unspec W/O Status Asthmaticus 556.9 Ulcerative Colitis Unspec 276.8 Hypopotassemia 780.79 Malaise And Fatigue Other 272.2 Hyperlipidemia Mixed Office Visit 02/20/2014 4:15p [place] [facility] [place] 401.1 Hypertension Benign VANESSA Jack 272.2 Hyperlipidemia Mixed 530.11 Esophagitis Reflux 477.8 Rhinitis Allergic Due To Other Allergen 715.90 Osteoarthrosis Unspec Genlzd Or Localized Site Unspec 536.8 Stomach Dyspepsia & Other Spec Disorders Of Function 493.90 Asthma Unspec W/O Status Asthmaticus 556.9 Ulcerative Colitis Unspec 276.8 Hypopotassemia 461.9 Sinusitis Acute Unspec 466.0 Bronchitis Acute 786.2 Cough 780.79 Malaise And Fatigue Other 388.70 Otalgia & Earache Unspec 462 Pharyngitis Acute Office Visit 02/03/2014 9:15a [place] [facility] [place] 401.1 Hypertension VANESSA Wright 272.2 Hyperlipidemia Mixed 530.11 Esophagitis Reflux 477.8 Rhinitis Allergic Due To Other Allergen 715.90 Osteoarthrosis Unspec Genlzd Or Localized Site Unspec 536.8 Stomach Dyspepsia & Other Spec Disorders Of Function 493.90 Asthma Unspec W/O Status Asthmaticus 556.9 Ulcerative Colitis Unspec Office Visit 01/06/2014 9:45a [place] [facility] [place], 401.1 Hypertension Benign Marcie, FUND CONTROLLER 272.2 Hyperlipidemia Mixed 530.11 Esophagitis Reflux 477.8 Rhinitis Allergic Due To Other Allergen 715.90 Osteoarthrosis Unspec Genlzd Or Localized Site Unspec 536.8 Stomach Dyspepsia & Other Spec Disorders Of Function 493.90 Asthma Unspec W/O Status Asthmaticus 556.9 Ulcerative Colitis Unspec Office Visit 12/23/2013 9:00a [place] [facility] [place], 401.1 Hypertension Benign Marcie, FUND CONTROLLER 272.2 Hyperlipidemia Mixed 530.11 Esophagitis Reflux 477.8 Rhinitis Allergic Due To Other Allergen 715.90 Osteoarthrosis Unspec Genlzd Or Localized Site Unspec 536.8 Stomach Dyspepsia & Other Spec Disorders Of Function 493.90 Asthma Unspec W/O Status Asthmaticus 556.9 Ulcerative Colitis Unspec Office Visit 10/21/2013 3:00p [place] [facility] [place], 401.1 Hypertension Benign Marcie, FUND CONTROLLER 272.2 Hyperlipidemia Mixed 530.11 Esophagitis Reflux 477.8 Rhinitis Allergic Due To Other Allergen 715.90 Osteoarthrosis Unspec Genlzd Or Localized Site Unspec 536.8 Stomach Dyspepsia & Other Spec Disorders Of Function 493.90 Asthma Unspec W/O Status Asthmaticus 556.9 Ulcerative Colitis Unspec Office Visit 09/08/2013 8:45a [place] [facility] [place], 401.1 Hypertension Benign Marcie, [employer]D CONTROLLER 272.2 Hyperlipidemia Mixed 530.11 Esophagitis Reflux 477.8 Rhinitis Allergic Due To Other Allergen 715.90 Osteoarthrosis Unspec Genlzd Or Localized Site Unspec 536.8 Stomach Dyspepsia & Other Spec Disorders Of Function 493.90 Asthma Unspec W/O Status Asthmaticus 556.9 Ulcerative Colitis Unspec V04.81 Need For Prophylactic Vaccination & Inoculation/Influenza Office Visit 08/20/2013 8:45a [place] [facility] Marcie Phoenix, 461.8 Sinusitis Acute [employer]D [employer]OLLER Other 786.2 Cough 388.70 Otalgia & Earache Unspec 462 Pharyngitis Acute 401.1 Hypertension Benign 272.2 Hyperlipidemia Mixed 530.11 Esophagitis Reflux 477.8 Rhinitis Allergic Due To Other Allergen 715.90 Osteoarthrosis Unspec Genlzd Or Localized Site Unspec 536.8 Stomach Dyspepsia & Other Spec Disorders Of Function 493.90 Asthma Unspec W/O Status Asthmaticus 556.9 Ulcerative Colitis Unspec Office Visit 08/05/2013 10:15a [place] [facility] [place], 401.1 Hypertension Benign MarcieVANESSA 272.2 Hyperlipidemia Mixed 530.11 Esophagitis Reflux 477.8 Rhinitis Allergic Due To Other Allergen 715.90 Osteoarthrosis Unspec Genlzd Or Localized Site Unspec 536.8 Stomach Dyspepsia & Other Spec Disorders Of Function 493.90 Asthma Unspec W/O Status Asthmaticus 556.9 Ulcerative Colitis Unspec Office Visit 03/27/2013 10:15a [place] [facility] Yancy Lisa 401.1 Hypertension Benign M., M.D. 272.2 Hyperlipidemia Mixed 530.11 Esophagitis Reflux 477.8 Rhinitis Allergic Due To Other Allergen 715.90 Osteoarthrosis Unspec Genlzd Or Localized Site Unspec 536.8 Stomach Dyspepsia & Other Spec Disorders Of Function 493.90 Asthma Unspec W/O Status Asthmaticus 787.91 Diarrhea Office Visit 09/05/2012 [place] Leighann Monahan [employer]D [employer]ER 401.1 Hypertension 2:00p Office Benign 272.2 Hyperlipidemia Mixed 530.11 Esophagitis Reflux 477.8 Rhinitis Allergic Due To Other Allergen 715.90 Osteoarthrosis Unspec Genlzd Or Localized Site Unspec V04.81 Need For Prophylactic Vaccination & Inoculation/Influenza Office Visit 03/11/2012 11:15a [place] [facility] Yancy Lisa 401.1 Hypertension Benign M., M.D. 272.2 Hyperlipidemia Mixed 530.11 Esophagitis Reflux 477.8 Rhinitis Allergic Due To Other Allergen 715.90 Osteoarthrosis Unspec Genlzd Or Localized Site Unspec Office Visit 10/17/2011 9:45a [place] [facility] Yancy Lisa 401.1 Hypertension Benign M., M.D. 272.2 Hyperlipidemia Mixed 530.11 Esophagitis Reflux 477.8 Rhinitis Allergic Due To Other Allergen Office Visit 10/03/2011 9:15a [place] [facility] Yancy Lisa 401.1 Hypertension Benign M., M.D. 272.2 Hyperlipidemia Mixed 477.8 Rhinitis Allergic Due To Other Allergen 530.11 Esophagitis Reflux Office Visit 09/11/2011 12:30p [place] [facility] Yancy Lisa 401.1 Hypertension Benign M. M.DReynaldo 272.2 Hyperlipidemia Mixed 536.8 Stomach Dyspepsia & Other Spec Disorders Of Function 715.90 Osteoarthrosis Unspec Genlzd Or Localized Site Unspec V04.81 Need For Prophylactic Vaccination & Inoculation/Influenza Office Visit 03/21/2011 9:15a [place] [facility] Yancy Lisa 401.1 Hypertension Benign M.DanielDReynaldo 272.2 Hyperlipidemia Mixed Office Visit 03/14/2011 3:15p [place] [facility] Yancy Lisa 401.1 Hypertension Benign M., MReynaldoDReynaldo 272.2 Hyperlipidemia Mixed 477.8 Rhinitis Allergic Due To Other Allergen Office Visit 11/11/2009 2:00p [place] [facility] Yancy Lisa 401.1 Hypertension Benign M.Farrukh 272.2 Hyperlipidemia Mixed 477.8 Rhinitis Allergic Due To Other Allergen Office Visit 10/26/2009 9:45a [place] [facility] Yancy Lisa 401.1 Hypertension Benign Nan.Farrukh 272.2 Hyperlipidemia Mixed Office Visit 09/21/2009 4:00p [place] [facility] aYncy Lisa 796.2 Blood Pressure M. MReynaldoDReynaldo Reading Elevated W/O Hypertension 401.1 Hypertension Benign 272.2 Hyperlipidemia Mixed 789.07 Pain Abdominal Generalized Plan of Treatment Future Appointment(s):05/26/2019 8:30 am - Prakash Lim N.P. at [facility]
--- OUTSIDE RECORDS SUMMARY | 2019-03-06 10:23 | XMS REPORT | Continuity of Care Document ---
:1945 External Reference #:[id number] Author Name Prakash Lim N.P. 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 Payers Date Identification Numbers Payment Provider Subscriber Effective: 2010 Policy Number: [id number] Medicare Alban Harden PayID: [id number] [address] [place] [address] Effective: 2013 Policy Number: [facility] Maribell Harden [id number] [facility] PayID: [id number] [address] [place] [address] Effective: 2013 Policy Number: [id number] [facility] Alban Harden Expires: 2013 [address] [address] [place] [address] Expires: 2012 Policy Number: [id number] [facility] Maribell Harden [address] [address] [place] [address] Effective: 2005 Policy Number: [id number] [facility] Alban Harden Expires: 2008 Group Number: [id number] [address] PayID: [id number] [place] [address] Expires: 2009 Policy Number: [id number] [facility] Maribell Harden Group Number: [id number] [address] PayID: [id number] [place] [address] Advance Directives Description No Information Available Problems Date Description Provider Status Onset: 03/27/2013 Benign essential hypertension Yancy Lisa M.D. Active Onset: 03/27/2013 Mixed hyperlipidemia Yancy Lisa M.D. Active Onset: 07/04/2014 Ulcerative colitis Lauren Raygoza FNP Active Onset: 03/27/2013 Allergic rhinitis Yancy Lisa M.D. Active Onset: 03/27/2013 Osteoarthritis Yancy Lisa M.D. Active Onset: 07/04/2014 Esophagitis Lauren Raygoza FNP Active Onset: 07/04/2014 Dietary potassium - low Lauren Raygoza FNP Active Onset: 10/01/2015 Essential hypertension Yancy Lisa M.D. Active Onset: 03/27/2013 Asthma without status asthmaticus Yancy Lisa M.D. Inactive Inactive: 09/01/2014 Onset: 03/27/2013 Peptic reflux disease Yancy Lisa M.D. Inactive Inactive: 09/01/2014 Onset: 03/27/2013 Indigestion Yancy Lisa M.D. Inactive Inactive: 09/01/2014 Family History Date Family Member(s) [...] Alerts Description No Known Drug Allergies Medications Medication Date Status Form Strength Qnty SIG Indications Ordering Provider Niacin ER 02/14 Active Tablets 500mg 90tab take one E78.2 Sloan, (Antihyperlipidemic) ER s tablet Yancy Sanchez, by mouth M.D. at bedtime Klor-Con M10 01/25 Active Tablets 10Meq 90tab 1 by E87.6 [facility], ER s mouth Yancy Sanchez, every M.D. day Hydrochlorothiazide 01/06 Active Tablets 25mg 90tab take one I10 [facility]loan s tablet Yancy Sanchez, by mouth M.D. every day Lopressor 03/08 Active Tablets 50mg 135ta 1 /2 by I10 [facility]loan, bs mouth Yancy Sanchez, every M.D. day Imelda Allergy 03/08 Active Tablets 180mg 1 by J30.2 [facility], mouth Yancy Sanchez, every M.D. day Tums 03/08 Active Chewtabs 500mg as K30 [facility]loan needed Yancy Sanchez M.D. K21.0 Apriso Active Caps ER 0.375gm 4 caps by K51.90 Unknown 24HR mouth qday -per dr thomas Mercaptopurine Active Tablets 50mg 1 tab by K51.90 Unknown mouth every day Gastro Hydrocortisone 07/18/2017 - Hx Cream 2.5% 30g apply to L23.7 [facility], 08/27/2018 m Upper Yancy Sanchez, Arms M.DReynaldo twice a day as needed Atorvastatin 01/21/2016 - Hx Tablets 10mg 90t 1 by E78.2 [facility], Calcium 05/03/2016 abs mouth Yancy Sanchez, every day M.D. Lipitor 01/25/2015 - Hx Tablets 20mg 30t 1 by 272.2 [facility], 04/05/2015 abs mouth Yancy Sanchez, every day M.D. Fish Oil 03/26/2014 - Hx Capsules 1000mg 60c 1 by E78.2 [facility], 01/21/2016 aps mouth Yancy Sanchez, twice a M.D. day Lipofen 02/20/2014 - Hx Capsules 50mg 30c 1 Cap PO 272.2 [facility], 03/26/2014 aps Qday With Yancy Sanchez, A Meal M.D. Levofloxacin 02/20/2014 - Hx Tablets 500mg 10t 1 po qd 461.9 [facility], 03/02/2014 abs Cammie ZapataD. 466.0 Benzonatate 02/20/2014 - Hx Capsules 100mg 30caps 1 capsule 466.0 [facility] , 03/02/2014 po tid Ahmad prn for Farrukh Sanchez cough Mucinex 02/20/2014 - Hx Tablets ER 600mg 1 po bid 461.9 [facility], 02/24/2014 12HR Yancy Sanchez M.D. Klor-Con M20 02/04/2014 - Hx Tablets ER 20Meq 30tabs Two tabs 276.8 [facility], 09/15/2014 on -- Ahmad One tab Farrukh Sanchez on / Sun Hydrochlorothiazide 12/23/2013 - Hx Tablets 12.5mg 30tabs 1 tab po 401.1 [facility], 01/06/2014 qacammie Sanchez M.D. Amlodipine Besylate 09/08/2013 - Hx Tablets 10mg 30tabs 1 by 401.1 [facility], 12/23/2013 mouth Ahmad every day Farrukh Sanchez Amoxicillin 08/20/2013 - Hx Tablets 500mg 20tabs 1 by 461.8 [facility], 08/30/2013 mouth Ahmad twice a Farrukh Sanchez day Mucinex Maximum 08/20/2013 - Hx Tablets ER 1200mg 30tabs 1 po bid 461.8 [facility], Strength 08/25/2013 12HR Yancy Sanchez M.D. Amlodipine Besylate 08/20/2013 - Hx Tablets 5mg 30tabs 1 po qd 401.1 [facility], 09/08/2013 Farrukh Zapata-DR Thomas 08/05/2013 - Hx Capsules 400mg 2 Caps PO 556.9 [facility], 05/19/2014 DR rajan Sanchez M.D. eri-DR Thomas 08/05/2013 - Hx Tablets ER 9mg 1 PO Qday 556.9 [facility], 12/23/2013 24HR Yancy Sanchez M.D. Zocor 03/08/2012 - Hx Tablets 40mg 30tabs 1 by 272.2 [facility], 12/09/2013 mouth Ahmad every day Farrukh Sanchez Medications Administered in Office Medication Date Status Form Strength Qnty SIG Indications Ordering Provider Admin Of 11/13/ Administered Injection [facility]loan, Pneumovax 2014 Yancy Sanchez M.D. Dexamethasone 04/29/ Administered Injection Jose J. Phosphate 1 MG 1998 Donlick, D.O. Dexamethasone 03/26/ Administered Injection Jose J. Phosphate 1 MG 1997 Donlick, D.O. Dexamethasone 03/26/ Administered Injection Jose J. Acetate 1997 Donlick, D.O. Dexamethasone 03/31/ Administered Injection Jose J. Phosphate 1996 Donlick, D.O. Dexamethasone 03/31/ Administered Injection Jose J. Acetate 1996 Donlick, D.O. Dexamethasone 08/19/ Administered Injection Jose J. Phosphate 1995 Donlick, D.O. Dexamethasone 08/19/ Administered Injection Jose J. Acetate 1995 Donlick, D.O. Unlisted 03/23/ Administered Injection Jose J. Therapeutic/Diag 1994 Donlick, nostic Injection D.O. Unlisted 03/23/ Administered Injection Jose J. Therapeutic/Diag 1994 Donlick, nostic Injection D.O. Immunizations CPT Code Status Date Vaccine Lot # [id number] Given 09/01/2018 Influenza,Unspecified U-Flu Given 08/18/2017 Influenza,Unspecified [id number] Given 10/01/2015 Pneumovax [id number] Q2038 Given 09/14/2015 Flu Vaccine 3+Yrs Old(Fluzone) [id number] Given 09/01/2014 Flu Vaccine 3+Yrs Old(Fluzone) [id number] Q2038 Given 09/08/2013 Flu Vaccine 3+Yrs Old(Fluzone) [id number] Q2038 Given 09/05/2012 Flu Vaccine 3+Yrs Old(Fluzone) [id number] Given 09/05/2012 Flu Vaccine [id number] Q2038 Given 09/11/2011 Flu Vaccine 3+Yrs Old(Fluzone) [id number] Given 09/05/1999 Influenza Vaccine 41759 Given 10/08/1998 Influenza Vaccine [id number] Given 09/22/1997 Influenza Vaccine 80423 Given 09/12/1996 Influenza Vaccine [id number] Given 09/19/1995 Influenza Vaccine 92145 Given 09/19/1995 Influenza Vaccine [id number] Ordered 08/20/2016 Flu Vaccine Vital Signs Date Vital Result Comment 02/05/2019 8:51am BP Systolic 130 mmHg BP [...] Rate 14 /min 09/01/2014 3:09pm BP Systolic 72547 mmHg Height 62 inches 5'2" Weight 152.00 [...] Result H/L Range Note CBC With Diff 08/06/2018 [facility] WBC 7.0 10*3/uL (4.1-11.0) [address] [facility] [facility] (607)- - RBC 4.36 10*6/uL (4.00-5.40) HGB 13.9 g/dL (12.0-16.0) HCT 40.3 % (36.0-47.0) MCV 92.4 fL (80.0-95.0) MCH 31.9 pg (27.0-32.0) MCHC 34.5 g/dL (32.0-36.0) RDW 14.0 % (10.5-14.5) PLT 250 10*3/uL (150-450) MPV 9.2 fL (7.1-10.7) Neut % 65.5 % (35.0-75.0) Lymph % 21.1 % (16.0-52.0) [place] % 10.8 % High (0.0-8.0) Eos % 1.8 % (0.0-5.0) Baso % 0.8 % (0.0-4.0) Neut # 4.6 10*3/uL (1.8-7.7) Lymph # 1.5 10*3/uL (1.2-4.8) [place] # 0.7 10*3/uL (0.0-0.8) Eos # 0.1 10*3/uL (0.0-0.5) Baso # 0.1 10*3/uL (0.0-0.2) CMP 08/06/2018 [facility] Sodium 139 mmol/L (136-145) [address] [facility] [facility] (607)- - Potassium 3.5 mmol/L Low [...] >60 ml/min/1.73m2 (>59) GFR Interpretation <SEE NOTE> 1 Lipid 08/06/2018 [facility] Cholesterol @ 239 mg/dL High (0-200) [address] [facility] (607)- - Triglyceride @ 499 mg/dL High (30-200) HDL Cholesterol @ 31 mg/dL Low (>40) 2 Chol/HDL Ratio 7.7 RATIO 3 LDL Chol (Calc) UNABLE TO CALCUL <SEE NOTE> mg/dL (<130) 4 Laboratory 08/06/2018 [facility] TSH,Ultrasensitive @ 1.340 (0.360- 4.170) test finding [address] [facility] mIU/L (603)- - Hemoglobin 08/06/2018 [facility] Hemoglobin A1c @ 6.1 % High (4.0-6.0) 5 A1c [address] [facility] (607)- - Est Average Glucose 128 mg/dL Laboratory test finding 08/06/2018 [facility] Esr 28 mm/h (0-30) [address] [facility] (603)- - 25 Hydroxy Vit D @ 48 ng/mL (31-100) 6 Direct LDL @ 159 mg/dL High (<130) 7 Laboratory test 02/06/2018 [facility] Hemoglobin A1c 6.0 % High 4.0- 5.6 8 finding (Glyco HGB) Erythrocyte Sed Rate 47 mm/Hr High 0-40 9 Vitamin D Total 25(Oh) 50.4 ng/mL High 20-50 10 Lipid Profile 02/06/2018 [facility] Triglycerides 394 mg/dL 11 (Trig/Chol/HDL) Cholesterol 213 mg/dL 12 HDL Cholesterol 31.1 mg/dL 13 LDL Cholesterol 103 mg/dL 14 Laboratory test 02/06/2018 [facility] TSH (Thyroid 2.29 mcIU/mL N 0.34-5.60 15 finding Stim Horm) Comp Metabolic 02/06/2018 [facility] Sodium 134 mmol/L N 133-145 Panel [...] Egfr Non- 73.7 >60 Egfr 94.8 >60 16 CBC Auto Diff 02/06/2018 [facility] White Blood Count 6.1 10^3/uL N [...] 0-2 Nucleated Red Blood Cells % 0 CBC Auto Diff 07/18/2017 [facility] White Blood Count 6.7 10^3/uL N [...] % 0.1 N Comp Metabolic Panel 07/18/2017 [facility] Sodium 135 mmol/L N 133- 145 [...] 81.2 N >60 Egfr 104.4 N >60 17 Lipid Profile 07/18/2017 [facility] Triglycerides 388 mg/dL N 18 (Trig/Chol/HDL) Cholesterol 238 mg/dL N 19 HDL Cholesterol 37.8 mg/dL N 20 LDL Cholesterol 123 mg/dL N 21 Laboratory test 07/18/2017 [facility] Hemoglobin A1c 5.9 % N Less than 22 finding (Glyco HGB) 6.0 TSH (Thyroid Stim Horm) 1.44 mcIU/mL N 0.34-5.60 23 Laboratory test 03/26/2017 [facility] Hemoglobin A1c 5.3 % N Less than 24 finding (Glyco HGB) 6.0 TSH (Thyroid Stim Horm) 1.61 mcIU/mL N 0.34-5.60 25 Lipid Profile 03/26/2017 [facility] Triglycerides 327 mg/dL N 26 (Trig/Chol/HDL) Cholesterol 222 mg/dL N 27 HDL Cholesterol 37.0 mg/dL N 28 LDL Cholesterol 120 mg/dL N 29 Comp Metabolic Panel 03/26/2017 [facility] Sodium 134 mmol/L N 133- 145 [...] N >60 Egfr 86.0 N >60 30 CBC Auto Diff 03/26/2017 [facility] White Blood Count 7.7 10^3/uL N [...] Nucleated Red Blood Cells % 0.1 N Laboratory test finding 01/17/2017 [facility] Lipase 22 U/L N 11.0- 82.0 31, 32 Amylase 51 U/L N 29-103 33 Lipid Profile 01/17/2017 [facility] Triglycerides 471 mg/dL N 34 (Trig/Chol/HDL) Cholesterol 254 mg/dL N 35 HDL Cholesterol 38.4 mg/dL N 36 LDL Cholesterol (SEE NOTE) mg/dL N 37 Laboratory test 01/17/2017 [facility] Hemoglobin A1c 5.9 % N Less than 38 finding (Glyco HGB) 6.0 TSH (Thyroid Stim Horm) 1.68 mcIU/mL N 0.34-5.60 39 Comp Metabolic Panel 01/17/2017 [facility] Sodium 133 mmol/L N 133- 145 [...] 78.6 N >60 Egfr 101.1 N >60 40 CBC Auto Diff 01/17/2017 [facility] White Blood Count 8.2 10^3/uL N 3.5-10.8 Red Blood Count 4.33 10^6/uL N 4.0-5.4 [...] Cells % 0 N Laboratory test 05/03/2016 [facility] Rheumatoid Factor <15 IU/mL N < 15 41 finding TSH (Thyroid Stim Horm) 1.82 ?IU/mL N 0.34-5.60 42 CBC Auto Diff 05/03/2016 [facility] White Blood Count 6.2 10^3/uL N [...] Nucleated Red Blood Cells % 0 N Lipid Profile 05/03/2016 [facility] Triglycerides 353 mg/dL N 43 (Trig/Chol/HDL) Cholesterol 205 mg/dL N 44 HDL Cholesterol 41.0 mg/dL N 45 LDL Cholesterol 93 mg/dL N 46 Comp Metabolic Panel 05/03/2016 [facility] Sodium 135 mmol/L N 133- 145 [...] 73.0 N >60 Egfr 93.9 N >60 47 Laboratory test 05/03/2016 [facility] Hemoglobin A1c 5.7 % N Less than 48 finding (Glyco HGB) 6.0 Laboratory test 01/04/2016 [facility] Magnesium 1.9 mg/dL N 1.9-2.7 finding Laboratory test 01/04/2016 [facility] TSH (Thyroid Stim 2.52 N 0.34- 5.60 finding Horm) ?IU/mL Uric Acid 6.3 mg/dL N 2.3-6.6 Vitamin D Total 25(Oh) 36.0 ng/mL N 30-50 Lipid Profile 01/04/2016 [facility] Triglycerides 290 mg/dL N 49 (Trig/Chol/HDL) Cholesterol 245 mg/dL N 50 HDL Cholesterol 44.6 mg/dL N 51 LDL Cholesterol 142 mg/dL N 52 Laboratory test 01/04/2016 [facility] Erythrocyte Sed Rate 39 mm/Hr N 0-40 finding CRP High Sensitivity 3.09 mg/L N 53 Hemoglobin A1c (Glyco HGB) 5.8 % N Less than 6.0 54 Comp Metabolic Panel 01/04/2016 [facility] Sodium 135 mmol/L N 133- 145 [...] 76.4 N >60 Egfr 98.2 N >60 55 CBC Auto Diff 01/04/2016 [facility] White Blood Count 7.8 10^3/uL N [...] % 0 N CBC W/Automated Diff 04/05/2015 [facility] White Blood Count 7.1 K/uL 3.1- 10.7 [...] % 40.4-72.8 Lymph % 21.7 % 17.0-46.1 [place] % 11.5 % 4.3-13.2 Eo% 2.7 % 0.0-6.6 Bas% 0.7 % 0.0-1.1 Neut# 4.53 K/uL 1.0-7.0 Lymph # 1.55 K/uL Low 1.8-7.0 [place] # 0.82 K/uL 0.3-0.9 Eos # 0.19 K/uL 0.0-0.5 Baso # 0.05 K/uL 0.0-0.1 Comprehensive Metabolic Panel 04/05/2015 [facility] Glucose 120 mg/dL High 74-106 BUN 16 mg/dL 7-18 Creatinine 0.9 mg/dL 0.6-1.3 Glom Filtration Rate, Estimate >60 mL/min >60 If >60 mL/min >60 56 BUN/Creat 17.7 ratio Sodium 138 mmol/L 136-145 [...] Phosphatase 53 U/L 45-117 Laboratory test 04/05/2015 [facility] Sedimentation Rate 37 mm/hr High 0- 30 finding LDL Cholesterol 04/05/2015 [facility] Cholesterol 232 mg/dL < 200 57 Profile Triglycerides 318 mg/dL < 150 58 HDL Cholesterol 30 mg/dL > 40 59 LDL-Cholesterol 138 mg/dL < 100 60 Laboratory test 12/14/2014 [facility] TSH Reflex FT4 1.30 uIU/mL 0.36- 3.74 61 finding and/or FT3 LDL Cholesterol 12/14/2014 [facility] Cholesterol 265 mg/dL < 200 62 Profile Triglycerides 361 mg/dL < 150 63 HDL Cholesterol 36 mg/dL > 40 64 LDL-Cholesterol 157 mg/dL < 100 65 Laboratory test 12/14/2014 [facility] C-Reactive 0.69 mg/L <3.0 finding Protein,Cardiac Sedimentation Rate 31 mm/hr High 0-30 Comprehensive Metabolic Panel 12/14/2014 [facility] Glucose 93 mg/dL 74- 106 BUN 13 mg/dL 7-18 Creatinine 0.8 mg/dL 0.6-1.3 Glom Filtration Rate, Estimate >60 mL/min >60 If >60 mL/min >60 66 BUN/Creat 16.2 ratio Sodium 139 mmol/L 136-145 [...] 57 U/L 45-117 CBC W/Automated Diff 12/14/2014 [facility] White Blood Count 7.8 K/uL 3.1- 10.7 [...] % 40.4-72.8 Lymph % 19.4 % 17.0-46.1 [place] % 10.1 % 4.3-13.2 Eo% 0.5 % 0.0-6.6 Bas% 0.5 % 0.0-1.1 Neut# 5.39 K/uL 1.0-7.0 Lymph # 1.50 K/uL 0.8-3.4 [place] # 0.78 K/uL 0.3-0.9 Eos # 0.04 K/uL 0.0-0.5 Baso # 0.04 K/uL 0.0-0.1 Laboratory test finding 09/01/2014 [facility] Potassium 3.8 mmol/L 3.5- 5.1 LDL Cholesterol Profile 09/01/2014 [facility] Cholesterol 213 mg/dL 67 Triglycerides 212 mg/dL 68 HDL Cholesterol 45 mg/dL 69 LDL-Cholesterol 126 mg/dL 70 CBC W/Automated Diff 09/01/2014 [facility] White Blood Count 7.7 K/uL 3.1- 10.7 [...] % 40.4-72.8 Lymph % 27.4 % 17.0-46.1 [place] % 8.6 % 4.3-13.2 Eo% 1.4 % 0.0-6.6 Bas% 0.7 % 0.0-1.1 Neut# 4.75 K/uL 1.0-7.0 Lymph # 2.10 K/uL 0.8-3.4 [place] # 0.66 K/uL 0.3-0.9 Eos # 0.11 K/uL 0.0-0.5 Baso # 0.05 K/uL 0.0-0.1 Comprehensive Metabolic Panel 09/01/2014 [facility] Glucose 78 mg/dL 74- 106 BUN 13 mg/dL 7-18 Creatinine 0.8 mg/dL 0.6-1.3 Glom Filtration Rate, Estimate >60 mL/min >60 If >60 mL/min >60 71 BUN/Creat 16.2 ratio Sodium 139 mmol/L 136-145 Chloride 104 mmol/L 98-107 Carbon Dioxide 29 mmol/L 21-32 Anion Gap 10 mEq/L 8-16 Calcium 9.1 mg/dL 8.5-10.1 Total Protein 7.2 g/dL 6.4-8.2 Albumin 3.5 g/dL 3.4-5.0 Globulin 3.7 g/dL 1.9-4.3 Alb/Glob 0.9 ratio Bilirubin,Total 0.7 mg/dL 0.2-1.0 Sgot/Ast 14 U/L Low 15-37 SGPT/Alt 22 U/L 12-78 Alkaline Phosphatase 61 U/L 45-117 Comprehensive Metabolic Panel 06/18/2014 [facility] Glucose 83 mg/dL 76- 115 BUN 15 mg/dL 5-23 Creatinine 0.7 mg/dL 0.5-1.4 Glom Filtration Rate, Estimate >60 mL/min >60 If >60 mL/min >60 72 BUN/Creat 21.4 ratio Sodium 136 mmol/L 136-145 [...] 69 U/L 50-136 CBC W/Automated Diff 06/18/2014 [facility] White Blood Count 6.8 K/uL 3.1- 10.7 [...] 40.4-72.8 Lymph % 16.9 % Low 17.0-46.1 [place] % 9.8 % 4.3-13.2 Eo% 2.1 % 0.0-6.6 Bas% 0.4 % 0.0-1.1 Neut# 4.79 K/uL 1.0-7.0 Lymph # 1.14 K/uL 0.8-3.4 [place] # 0.66 K/uL 0.3-0.9 Eos # 0.14 K/uL 0.0-0.5 Baso # 0.03 K/uL 0.0-0.1 LDL Cholesterol Profile 06/18/2014 [facility] Cholesterol 239 mg/dL High 120-200 Triglycerides 310 mg/dL High 16-231 HDL Cholesterol 32 mg/dL 29-83 LDL-Cholesterol 145 mg/dL 62-185 Laboratory test finding 06/18/2014 [facility] ThinPrep Pap See Note 73 Specimen Basic Metabolic Panel 02/20/2014 [facility] Glucose 100 mg/dL 76-115 BUN 21 mg/dL 5-23 Creatinine 0.9 mg/dL 0.5-1.4 Glom Filtration Rate, Estimate >60 mL/min >60 If >60 mL/min >60 74 BUN/Creat 23.3 ratio Sodium 138 mmol/L 136-145 Potassium 3.7 mmol/L 3.5-5.1 Chloride 104 mmol/L 98-107 Carbon Dioxide 27 mEq/L 18-29 Anion Gap 11 mEq/L 8-16 Calcium 9.3 mg/dL 8.5-10.1 Basic Metabolic Panel 02/03/2014 [facility] Glucose 84 mg/dL 76-115 BUN 17 mg/dL 5-23 Creatinine 0.8 mg/dL 0.5-1.4 Glom Filtration Rate, Estimate >60 mL/min >60 If >60 mL/min >60 75 BUN/Creat 21.2 ratio Sodium 137 mmol/L 136-145 Potassium 3.2 mmol/L Low 3.5-5.1 Chloride 101 mmol/L 98-107 Carbon Dioxide 28 mEq/L 18-29 Anion Gap 11 mEq/L 8-16 Calcium 9.3 mg/dL 8.5-10.1 CBC W/Automated Diff 02/03/2014 [facility] White Blood Count 9.7 K/uL 3.1- 10.7 [...] % 40.4-72.8 Lymph % 17.0 % 17.0-46.1 [place] % 10.4 % 4.3-13.2 Eo% 2.0 % 0.0-6.6 Bas% 0.3 % 0.0-1.1 Neut# 6.84 K/uL 1.0-7.0 Lymph # 1.65 K/uL 0.8-3.4 [place] # 1.01 K/uL High 0.3-0.9 Eos # 0.19 K/uL 0.0-0.5 Baso # 0.03 K/uL 0.0-0.1 LDL Cholesterol Profile 02/03/2014 [facility] Cholesterol 219 mg/dL High 120-200 Triglycerides 299 mg/dL High 16-231 HDL Cholesterol 28 mg/dL Low 29-83 LDL-Cholesterol 131 mg/dL 62-185 Liver Function Tests 02/03/2014 [facility] Total Protein 8.2 g/dL High 6.3- 8.0 Albumin 3.7 g/dL 3.5-5.0 Globulin 4.5 g/dL High 1.9-4.3 Alb/Glob 0.8 ratio Bilirubin,Total 0.5 mg/dL 0.2-1.2 Bilirubin,Direct 0.1 mg/dL 0.1-0.4 Bilirubin,Indirect 0.4 mg/dL 0.0-0.9 Sgot/Ast 33 U/L 16-40 SGPT/Alt 51 U/L 30-65 Alkaline Phosphatase 85 U/L 50-136 Laboratory test finding 02/03/2014 [facility] Sedimentation Rate 57 mm/hr High 0-30 Basic Metabolic Panel 12/23/2013 [facility] Glucose 93 mg/dL 76-115 BUN 10 mg/dL 5-23 Creatinine 0.7 mg/dL 0.5-1.4 Glom Filtration Rate, Estimate >60 mL/min >60 If >60 mL/min >60 76 BUN/Creat 14.2 ratio Sodium 139 mmol/L 136-145 Potassium 3.8 mmol/L 3.5-5.1 Chloride 107 mmol/L 98-107 Carbon Dioxide 23 mEq/L 18-29 Anion Gap 13 mEq/L 8-16 Calcium 9.2 mg/dL 8.5-10.1 Liver Function Tests 12/23/2013 [facility] Total Protein 6.8 g/dL 6.3-8.0 Albumin 3.9 g/dL 3.5-5.0 Globulin 2.9 g/dL 1.9-4.3 Alb/Glob 1.3 ratio Bilirubin,Total 0.4 mg/dL 0.2-1.2 Bilirubin,Direct 0.1 mg/dL 0.1-0.4 Bilirubin,Indirect 0.3 mg/dL 0.0-0.9 Sgot/Ast 50 U/L High 16-40 SGPT/Alt 65 U/L 30-65 Alkaline Phosphatase 98 U/L 50-136 CBC W/Automated Diff 12/23/2013 [facility] White Blood Count 5.6 K/uL 3.1- 10.7 [...] % 40.4-72.8 Lymph % 26.3 % 17.0-46.1 [place] % 10.0 % 4.3-13.2 Eo% 1.6 % 0.0-6.6 Bas% 0.5 % 0.0-1.1 Neut# 3.45 K/uL 1.0-7.0 Lymph # 1.47 K/uL 0.8-3.4 [place] # 0.56 K/uL 0.3-0.9 Eos # 0.09 K/uL 0.0-0.5 Baso # 0.03 K/uL 0.0-0.1 Basic Metabolic Panel 08/20/2013 [facility] Glucose 69 mg/dL Low 76-115 BUN 11 mg/dL 5-23 Creatinine 0.5 mg/dL 0.5-1.4 Glom Filtration Rate, Estimate >60 mL/min >60 If >60 mL/min >60 77 BUN/Creat 22.0 ratio Sodium 140 mmol/L 136-145 Potassium 3.7 mmol/L 3.5-5.1 Chloride 105 mmol/L 98-107 Carbon Dioxide 27 mEq/L 18-29 Anion Gap 12 mEq/L 8-16 Calcium 8.6 mg/dL 8.5-10.1 CBC W/Automated Diff 08/20/2013 [facility] White Blood Count 7.3 K/uL 3.1- 10.7 [...] % 40.4-72.8 Lymph % 23.3 % 17.0-46.1 [place] % 9.9 % 4.3-13.2 Eo% 0.8 % 0.0-6.6 Bas% 0.4 % 0.0-1.1 Neut# 4.76 K/uL 1.0-7.0 Lymph # 1.69 K/uL 0.8-3.4 [place] # 0.72 K/uL 0.3-0.9 Eos # 0.06 K/uL 0.0-0.5 Baso # 0.03 K/uL 0.0-0.1 Laboratory test 08/20/2013 [facility] C-Reactive 1.24 mg/L 0.00-3.00 78 finding Protein,Cardiac Sedimentation Rate 31 mm/hr High 0-30 LDL Cholesterol Profile 08/20/2013 [facility] Cholesterol 172 mg/dL 120- 200 Triglycerides 154 mg/dL 16-231 HDL Cholesterol 45 mg/dL 29-83 LDL-Cholesterol 96 mg/dL 62-185 Liver Function Tests 08/20/2013 [facility] Total Protein 6.8 g/dL 6.3-8.0 Albumin 3.1 g/dL Low 3.5-5.0 Globulin 3.7 g/dL 1.9-4.3 Alb/Glob 0.8 ratio Bilirubin,Total 0.3 mg/dL 0.2-1.2 Bilirubin,Direct < 0.1 mg/dL Low 0.1-0.4 Bilirubin,Indirect 0.2 mg/dL 0.0-0.9 Sgot/Ast 12 U/L Low 16-40 SGPT/Alt 20 U/L Low 30-65 Alkaline Phosphatase 79 U/L 50-136 Laboratory test 08/20/2013 [facility] Thyroid Stim 1.64 uIU/mL 0.49-4.67 finding Hormone Surgical 06/12/2013 [facility] S RUN DATE: 79 Pathology 06/16/ <SEE NOTE> CBC Auto Diff 03/27/2013 [facility] White Blood 6.4 10^3/uL 4.8- 10.8 [...] Cells % 0.1 Basic Metabolic Panel 03/27/2013 [facility] Sodium 136 mmol/L 133- 145 Potassium 4.1 mmol/L 3.5-5.0 Chloride 105 mmol/L 101-111 Co2 Carbon Dioxide 25.0 mmol/L 22-32 Anion Gap 6.0 mmol/L 2-11 Glucose 86 mg/dL 70-100 Blood Urea Nitrogen 14 mg/dL 6-24 Creatinine 0.70 mg/dL 0.50-1.40 BUN/Creatinine Ratio 20.0 8-20 Calcium 8.8 mg/dL 8.1-9.9 Egfr Non- 83.5 >60 Egfr 107.3 >60 80 Lipid Profile 03/27/2013 [facility] Triglycerides 149 mg/dL 40-200 (Trig/Chol/HDL) Cholesterol 179 mg/dL Less than 200 HDL Cholesterol 32 mg/dL Low 40-60 81 Cholesterol/HDL Ratio 5.6 Average High 1-4.44 LDL Cholesterol 117.2 mg/dL High Less Than 100 82 Laboratory test 03/27/2013 [facility] TSH (Thyroid 1.32 miu/mL 0.34- 5.60 finding Stimulating Horm) Amylase 61 U/L 20-120 Lipase 25 U/L 22-51 Erythrocyte Sed Rate 89 mm/Hr High 0-40 CRP High Sensitivity 21.5 mg/L 83 CA 125 Antigen 9.1 U/mL 2.0-35.0 84 Liver Function Panel 03/27/2013 [facility] Total Protein 6.9 g/dL 6.2-8.1 Albumin 3.1 g/dL Low 3.2-5.2 Globulin 3.8 g/dL 2-4 Albumin/Globulin Ratio 0.8 Low 1-3 Total Bilirubin 0.5 mg/dL 0.4-1.5 Direct Bilirubin 0.1 mg/dL 0.1-0.5 Indirect Bilirubin 0.4 mg/dL 0.3-1.0 Alkaline Phosphatase 72 U/L 30-110 Alt 16 U/L 14-54 Ast 20 U/L 12-42 1 NORMAL KIDNEY FUNCTION OR MILD DISEASE - GFR >OR=60 CHRONIC KIDNEY DISEASE - GFR 15 - 59 RENAL FAILURE - GFR <15 Est. GFR calculation based on the MDRD study equation, which assumes a steady state for creatinine. Est. GFR should not be used for medication dosing. 2 PER NCEP ATP III GUIDELINES: RESULTS LOWER THAN 40 MG/DL ARE SUGGESTIVE OF INCREASED RISK FOR CORONARY ARTERY DISEASE. RESULTS > OR=TO 60 MG/DL ARE CONSIDERED A NEGATIVE RISK FACTOR. 3 INTERPRETATION OF CHOL-HDL RATIO CHD RISK FEMALE MALE VERY HIGH >8.3 >14.3 HIGH 5.6- 8.3 6.7- 14.3 AVERAGE 3.7- 5.6 4.0- 6.7 BELOW AVERAGE 2.5- 3.7 2.7- 4.0 PROTECTED <2.5 <2.7 4 UNABLE TO CALCULATE VALID LDL DUE TO INTERFERENCE FROM ELEVATED TRIGLYCERIDES (GREATER THAN 300 MG/DL). SEE RESULT FOR DIRECT LDL. 5 Performed using Siemens [place] immunoassay. Care must be taken when interpreting [...] NOT BEEN ESTABLISHED USING THIS METHOD. 7 PER NCEP ATP III GUIDELINES: OPTIMAL < 100 NEAR OPTIMAL 100 - 129 BORDERLINE HIGH 130 - 159 HIGH 160 - 189 VERY HIGH > 189 8 Therapeutic target for the treatment of diabetes mellitus patients is <7% HBA1C, and in selective patients <6.0%. Please refer to [place] [employer] diabetic care guidelines for further information. 9 [id number] Desirable: <150 Borderline High: 150-199 High: 200-499 Very High: >500 12 Desirable: <200 Borderline High: 200-239 High: >239 13 Low: <40 Desirable: 40-60 High: >60 14 Desirable: <100 Near Optimal: 100-129 Borderline High: 130-159 High: 160-189 Very High: >189 15 [id number] Because ethnic data is not always readily [...] 15-29 5 Kidney failure <15 (or dialysis) 17 Because ethnic data is not always readily [...] 15-29 5 Kidney failure <15 (or dialysis) 18 Desirable <150 Borderline high 150-199 High 200-499 Very High >500 19 Desirable <200 Borderline high 200-239 High >239 20 Low <40 Desirable: 40-60 High: >60 21 Desirable: <100 mg/dL Near Optimal: 100-129 mg/dL Borderline High: 130-159 mg/dL High: 160-189 mg/dL Very High: >189 mg/dL 22 Therapeutic target for the treatment of diabetes Mellitus patients is <7% HBA1C, and in selective patients <6.0%.Please refer to [place] [employer] Diabetic care guidelines for further information. 23 [id number] Therapeutic target for the treatment of diabetes Mellitus patients is <7% HBA1C, and in selective patients <6.0%.Please refer to [place] [employer] Diabetic care guidelines for further information. 25 [id number] 26 Desirable <150 Borderline high 150-199 High 200-499 Very High >500 27 Desirable <200 Borderline high 200-239 High >239 28 Low <40 Desirable: 40-60 High: >60 29 Desirable: <100 mg/dL Near Optimal: 100-129 mg/dL Borderline High: 130-159 mg/dL High: 160-189 mg/dL Very High: >189 mg/dL 30 Because ethnic data is not always [...] 5 Kidney failure <15 (or dialysis) 31 TRIGS, CHOL ELEVATED MORE THAN LAST VISIT---DIET SHEET SENT TO PT 32 [id number] 34 Desirable <150 Borderline high 150-199 High 200-499 Very High >500 35 Desirable <200 Borderline high 200-239 High >239 36 Low <40 Desirable: 40-60 High: >60 37 Unable to calculate LDL as triglyceride is > 400 38 Therapeutic target for the treatment of diabetes Mellitus patients is <7% HBA1C, and in selective patients <6.0%.Please refer to [place] [employer] Diabetic care guidelines for further information. 39 [id number] 40 Because ethnic data is not always readily [...] 15-29 5 Kidney failure <15 (or dialysis) 41 Test Performed by: [address] [address] Professor Of Biostatistics: Prakash Chino II, M.D., Ph.D. 42 [id number] 43 Desirable <150 Borderline high 150-199 High 200-499 Very High >500 44 Desirable <200 Borderline high 200-239 High >239 45 Low <40 Desirable: 40-60 High: >60 46 Desirable: <100 mg/dL Near Optimal: 100-129 mg/dL Borderline High: 130-159 mg/dL High: 160-189 mg/dL Very High: >189 mg/dL 47 Because ethnic data is not always readily [...] 15-29 5 Kidney failure <15 (or dialysis) 48 Therapeutic target for the treatment of diabetes Mellitus patients is <7% HBA1C, and in selective patients <6.0%.Please refer to [place] [employer] Diabetic care guidelines for further information. 49 Desirable <150 Borderline high 150-199 High 200-499 Very High >500 50 Desirable <200 Borderline high 200-239 High >239 51 Low <40 Desirable: 40-60 High: >60 52 Desirable: <100 mg/dL Near Optimal: 100-129 mg/dL Borderline High: 130-159 mg/dL High: 160-189 mg/dL Very High: >189 mg/dL 53 Low risk: <1.00 Average risk: 1.00-3.00 High risk: >3.00 54 Therapeutic target for the treatment of diabetes Mellitus patients is <7% HBA1C, and in selective patients <6.0%.Please refer to [place] [employer] Diabetic care guidelines for further information. 55 Because ethnic data is not always readily [...] 15-29 5 Kidney failure <15 (or dialysis) 56 Note: Persistent reduction for 3 months or more in an eGFR <60 mL/min/1.73 m2 defines CKD. Patients with eGFR values >/=60 mL/min/1.73 m2 may also have CKD if evidence of persistent proteinuria is present. The original MDRD equation for estimated GFR is not valid for patients less than 18 years of age. Additional information may be found at www.[email or web address]. 57 Reference Guidelines*: Desirable: ........... < 200 mg/dL Borderline High: ..... 200-239 mg/dL High: ................ >=240 mg/dL * The National Cholesterol Education Program (NCEP) 58 Reference Guidelines*: Normal: ............. < 150 mg/dL Borderline High: .... 150-199 mg/dL High: ............... 200-499 mg/dL Very High: .......... > 500 mg/dL * Source: National Cholesterol Education Program (NCEP) 59 Reference Guidelines*: Low HDL: ..... < 40 mg/dL Normal: ..... 40-60 mg/dL Desirable: ... > 60 mg/dL *The National Cholesterol Education Program(NCEP) 60 Reference Guidelines*: Optimal:........... <100 mg/dL Near Optimal....... 100-129 mg/dL Borderline High.... 130-159 mg/dL High............... 160-189 mg/dL Very High.......... >=190 mg/dL * Source: National Cholesterol Education Program (NCEP) 61 QUERY: Reflex add FT3? N QUERY: Reflex add FT4? Y 62 Reference Guidelines*: Desirable: ........... < 200 mg/dL Borderline High: ..... 200-239 mg/dL High: ................ >=240 mg/dL * The National Cholesterol Education Program (NCEP) 63 Reference Guidelines*: Normal: ............. < 150 mg/dL Borderline High: .... 150-199 mg/dL High: ............... 200-499 mg/dL Very High: .......... > 500 mg/dL * Source: National Cholesterol Education Program (NCEP) 64 Reference Guidelines*: Low HDL: ..... < 40 mg/dL Normal: ..... 40-60 mg/dL Desirable: ... > 60 mg/dL *The National Cholesterol Education Program(NCEP) 65 Reference Guidelines*: Optimal:........... <100 mg/dL Near Optimal....... 100-129 mg/dL Borderline High.... 130-159 mg/dL High............... 160-189 mg/dL Very High.......... >=190 mg/dL * Source: National Cholesterol Education Program (NCEP) 66 Note: Persistent reduction for 3 months or more in an eGFR <60 mL/min/1.73 m2 defines CKD. Patients with eGFR values >/=60 mL/min/1.73 m2 may also have CKD if evidence of persistent proteinuria is present. The original MDRD equation for estimated GFR is not valid for patients less than 18 years of age. Additional information may be found at [email or web address]. 67 Reference Guidelines*: Desirable: ........... < 200 mg/dL Borderline High: ..... 200-239 mg/dL High: ................ >=240 mg/dL * The National Cholesterol Education Program (NCEP) 68 Reference Guidelines*: Normal: ............. < 150 mg/dL Borderline High: .... 150-199 mg/dL High: ............... 200-499 mg/dL Very High: .......... > 500 mg/dL * Source: National Cholesterol Education Program (NCEP) 69 Reference Guidelines*: Low HDL: ..... < 40 mg/dL Normal: ..... 40-60 mg/dL Desirable: ... > 60 mg/dL *The National Cholesterol Education Program(NCEP) 70 Reference Guidelines*: Optimal:........... <100 mg/dL Near Optimal....... 100-129 mg/dL Borderline High.... 130-159 mg/dL High............... 160-189 mg/dL Very High.......... >=190 mg/dL * Source: National Cholesterol Education Program (NCEP) 71 Note: Persistent reduction for 3 months or more in an eGFR <60 mL/min/1.73 m2 defines CKD. Patients with eGFR values >/=60 mL/min/1.73 m2 may also have CKD if evidence of persistent proteinuria is present. The original MDRD equation for estimated GFR is not valid for patients less than 18 years of age. Additional information may be found at www.[email or web address]. 72 Note: Persistent reduction for 3 months or more in an eGFR <60 mL/min/1.73 m2 defines CKD. Patients with eGFR values >/=60 mL/min/1.73 m2 may also have CKD if evidence of persistent proteinuria is present. The original MDRD equation for estimated GFR is not valid for patients less than 18 years of age. Additional information may be found at [email or web address]. 73 CYTOLOGY SCREENER - TRANSCRIBING OPERATOR HEAD @ 12/30 Screened by: Vilma WEBB(ASCP) PAP: FINAL REPORT SPECIMEN ADEQUACY: SPECIMEN SATISFACTORY FOR INTERPRETATION INTERPRETATION: NEGATIVE FOR INTRAEPITHELIAL LESION OR MALIGNANCY COMMENT: ATROPHIC PATTERN THINPREP PREPARED PAP SLIDE # Prepared in the Cytology laboratory from the ThinPrep sample is 1 ThinPrep smear. PAP ACCESSI QUESTIONNAIRE 11/28 PERTINENT CLINICAL HISTORY FOR PAP (TRANSCRIBING OPERATOR HEAD) CYTOLOGY (Check all that apply): ? Post [...] dysplasia and carcinoma. Signed Electronically signed VILMA CLEARY 06/22/14 1444 74 Note: Persistent reduction for 3 months or more in an eGFR <60 mL/min/1.73 m2 defines CKD. Patients with eGFR values >/=60 mL/min/1.73 m2 may also have CKD if evidence of persistent proteinuria is present. The original MDRD equation for estimated GFR is not valid for patients less than 18 years of age. Additional information may be found at www.[email or web address]. 75 Note: Persistent reduction for 3 months or more in an eGFR <60 mL/min/1.73 m2 defines CKD. Patients with eGFR values >/=60 mL/min/1.73 m2 may also have CKD if evidence of persistent proteinuria is present. The original MDRD equation for estimated GFR is not valid for patients less than 18 years of age. Additional information may be found at [email or web address]. 76 Note: Persistent reduction for 3 months or more in an eGFR <60 mL/min/1.73 m2 defines CKD. Patients with eGFR values >/=60 mL/min/1.73 m2 may also have CKD if evidence of persistent proteinuria is present. The original MDRD equation for estimated GFR is not valid for patients less than 18 years of age. Additional information may be found at www.[email or web address]. 77 Note: Persistent reduction for 3 months or more in an eGFR <60 mL/min/1.73 m2 defines CKD. Patients with eGFR values >/=60 mL/min/1.73 m2 may also have CKD if evidence of persistent proteinuria is present. The original MDRD equation for estimated GFR is not valid for patients less than 18 years of age. Additional information may be found at [email or web address]. 78 Relative Risk for Future Cardiovascular Event Low <1.00 Average 1.00 - 3.00 High >3.00 79 RUN DATE: 06/16/13 [facility] LAB LIVE PAGE 1 RUN TIME: [address] [place], [place] [address] Specimen Inquiry Name: MARIBELL HARDEN : [address]: Billy Thomas MD Acct: [id number] Unit: [id number] AGE: 67 Location: [facility] Re06/12/13 SEX: F Status: REG REF SPEC: [id number] GEOVANNY: 06/12/13- SUBM DR: Billy Thomas MD REQ: [id number] RECD: 06/12/13 STATUS: EFRN STOLL DR: Yancy Lisa MD _ ORDERED: [...] performed at Main Lab DEPARTMENT OF PATHOLOGY, [facility] [address] [place], [place] [address] Beau Funez M.D. Director [facility] Permit #[id number] RUN DATE: 06/16/13 [facility] LAB LIVE PAGE 2 RUN TIME: [address] [facility] [address], [place] [address] Specimen Inquiry Patient: MARIBELL HARDEN [id number] (Continued) CLINICAL HISTORY (Continued) CLINICAL HISTORY Screening [...] performed at Main Lab DEPARTMENT OF PATHOLOGY, [address] [place] [address] Beau Funez M.D. Director [facility] Permit #[id number] 80 Because ethnic data is not always readily [...] 15-29 5 Kidney failure <15 (or dialysis) 81 HDL Interpretation: Undesirable: High Risk: Less than 40 MG/DL Desirable: Low Risk: Greater than 60 MG/DL 82 LDL Interpretation: Low Risk Optimal Level: LDL Less than 100 MG/DL Near or Above Optimal: LDL 100-129 MG/DL Borderline High Risk: LDL 130-159 MG/DL High Risk: LDL 160-189 MG/DL Very High Risk: LDL Greater than 189 MG/DL 83 Less Than 1.0......Low Risk of Cardiovascular Disease 1.0-3.0............Medium Risk (<2 Fold Increase) Greater Than 3.0...High Risk (Approximately 2-Fold Increase) 84 The CA 125 assay is not recommended as a cancer screening test, but rather as an aid in monitoring response to therapy for patients with epithelial ovarian cancer. Serial testing for patients CA 125 assay values should be used in conjunction with other methods used for screening ovarian cancer. Assayed by Chemiluminescence Microparticle Immunoassay on the [employer] Access[employer]. The values obtained with different assay methods or kits cannot be used interchangeably. Procedures Date Code Description Status 08/28/2018 21893 EKG Completed 03/19/2018 [id number] Mammogram Completed 07/18/2017 65521 Visual Screening Test Completed 07/18/2017 97705 EKG Completed 07/18/2017 47612 Audiometry, Bekesy, Screening Completed 06/07/2016 56220 Visual Screening Test Completed 06/07/2016 54496 EKG Completed 06/07/2016 37493 Audiometry, Bekesy, Screening Completed 05/31/2015 69113 Visual Screening Test Completed 05/31/2015 69849 EKG Completed 05/31/2015 20092 Audiometry, Bekesy, Screening Completed 05/26/2014 70730 EKG Completed 11/19/2012 [id number] Colonoscopy Completed 03/25/2009 36304 Spirometry Completed 09/01/2008 37274 Tympanometry Completed 01/29/2007 94084 Tympanometry Completed 07/27/2005 04374 Tympanometry Completed 08/23/2004 13011 Tympanometry Completed 03/23/1995 34566 Unlisted Therapeutic/Diagnostic Injection Completed 03/23/1995 32437 Unlisted Therapeutic/Diagnostic Injection Completed Encounters Type Date Location Provider Dx Diagnosis Office Visit 02/05/2019 [facility] Prakash Lim, I10 Essential ( primary) 9:00a N.P. hypertension E78.2 Mixed hyperlipidemia R73.01 Impaired [...] (BMI) 28.0-28.9, adult Office Visit 08/28/2018 8:30a [facility] Prakash Lim, I10 Essential (primary) N.P. hypertension [...] Encounter for immunization Office Visit 08/06/2018 3:45p [facility] Yancy Lisa I10 Essential ( primary) [...] D deficiency, unspecified Office Visit 02/13/2018 8:30a [facility] Huma Lisad I10 Patrica ( primary) Farrukh Sanchez hypertension [...] D deficiency, unspecified Office Visit 02/06/2018 8:15a [facility] SloanDick ryanmad I10 Essential ( primary) Farrukh Sanchez hypertension [...] D deficiency, unspecified Office Visit 07/18/2017 10:15a [facility] Jae Venegas Z00.01 Encounter for 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 general adult medical exam w abnormal findings Z00.01 Encounter for general adult medical exam w abnormal findings E78.2 Mixed hyperlipidemia K51.90 Ulcerative colitis, unspecified, without complications I10 Essential (primary) hypertension L23.7 Allergic contact dermatitis due to plants, except food Office Visit 04/11/2017 9:30a [facility] Jae Venegas E78.2 Mixed hyperlipidemia 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 M15.9 Polyosteoarthritis, unspecified K30 Functional dyspepsia K51.90 Ulcerative colitis, unspecified, without complications K21.0 Gastro-esophageal reflux disease with esophagitis R73.01 Impaired fasting glucose Office Visit 03/26/2017 11:30a [facility] Jae Venegas E78.2 Mixed hyperlipidemia 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 M15.9 Polyosteoarthritis, unspecified K51.90 Ulcerative colitis, unspecified, without complications K21.0 Gastro-esophageal reflux disease with esophagitis I10 Essential (primary) hypertension Office Visit 02/14/2017 3:30p [facility] Jae Venegas E78.2 Mixed hyperlipidemia 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 R73.01 Impaired fasting glucose M15.9 Polyosteoarthritis, unspecified K51.90 Ulcerative colitis, unspecified, without complications Office Visit 01/17/2017 8:45a [facility] Jae Venegas K51.90 Ulcerative colitis, 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 unspecified, without complications K21.0 Gastro-esophageal reflux disease with esophagitis J30.2 Other seasonal allergic rhinitis E78.2 Mixed hyperlipidemia I10 Essential (primary) hypertension R73.01 Impaired fasting glucose M15.9 Polyosteoarthritis, unspecified R53.83 Other fatigue M79.605 Pain in left leg Office Visit 06/07/2016 8:30a [facility] Jae Venegas Z00.01 Encounter for [facility] general adult medical exam w abnormal findings E78.2 Mixed hyperlipidemia I10 Essential (primary) hypertension K51.90 Ulcerative colitis, unspecified, without complications K21.0 Gastro-esophageal reflux disease with esophagitis J30.2 Other seasonal allergic rhinitis M15.9 Polyosteoarthritis, unspecified Office Visit 05/17/2016 8:30a [facility] Jae Venegas [facility] R73.01 Impaired fasting glucose R94.5 Abnormal results of liver function studies E78.2 Mixed hyperlipidemia I10 Essential (primary) hypertension K51.90 Ulcerative colitis, unspecified, without complications K21.0 Gastro-esophageal reflux disease with esophagitis J30.2 Other seasonal allergic rhinitis M15.9 Polyosteoarthritis, unspecified K30 Functional dyspepsia R73.9 Hyperglycemia, unspecified Office Visit 05/03/2016 9:00a [facility] Jae Venegas [facility] R73.01 Impaired fasting glucose R94.5 Abnormal results of liver function studies E78.2 Mixed hyperlipidemia I10 Essential (primary) hypertension K51.90 Ulcerative colitis, unspecified, without complications K21.0 Gastro-esophageal reflux disease with esophagitis J30.2 Other seasonal allergic rhinitis M15.9 Polyosteoarthritis, unspecified R53.83 Other fatigue Office Visit 01/21/2016 9:00a [facility] Yancy Lisa, R73.01 Impaired fasting M.D. glucose [...] in right knee Office Visit 01/04/2016 8:30a [facility] Yancy Lisa, R73.01 Impaired fasting M.D. glucose [...] in right knee Office Visit 10/01/2015 4:15p [facility] Yancy Lisa, R73.01 Impaired fasting M.D. glucose [...] Encounter for immunization Office Visit 05/31/2015 9:15a [facility] Yancy Lisa V70.0 Examination General Farrukh Snachez [facility] Routine [facility] 790.21 [...] Joint Lower Leg Office Visit 04/26/2015 9:00a [facility] Yancy Lisa, 790.21 Impaired Fasting M.D. Glucose 794.8 Liver Study Abnormal 272.2 Hyperlipidemia Mixed 401.1 Hypertension Benign 556.9 Ulcerative Colitis Unspec 536.8 Stomach Dyspepsia & Other Spec Disorders Of Function 530.11 Esophagitis Reflux 477.8 Rhinitis Allergic Due To Other Allergen 715.90 Osteoarthrosis Unspec Genlzd Or Localized Site Unspec 493.90 Asthma Unspec W/O Status Asthmaticus 276.8 Hypopotassemia 368.30 Bifocal Vision Office Visit 04/05/2015 8:45a [facility] Yancy Lisa 272.2 Hyperlipidemia Mixed Nan., M.D. 401.1 Hypertension Benign 556.9 Ulcerative Colitis Unspec 536.8 Stomach Dyspepsia & Other Spec Disorders Of Function 530.11 Esophagitis Reflux 477.8 Rhinitis Allergic Due To Other Allergen 715.90 Osteoarthrosis Unspec Genlzd Or Localized Site Unspec 493.90 Asthma Unspec W/O Status Asthmaticus 276.8 Hypopotassemia Office Visit 01/25/2015 9:45a [facility] Yancy Lisa., 276.8 Hypopotassemia M.D. 272.2 Hyperlipidemia Mixed 401.1 Hypertension Benign 556.9 Ulcerative Colitis Unspec 536.8 Stomach Dyspepsia & Other Spec Disorders Of Function 530.11 Esophagitis Reflux 477.8 Rhinitis Allergic Due To Other Allergen 715.90 Osteoarthrosis Unspec Genlzd Or Localized Site Unspec 493.90 Asthma Unspec W/O Status Asthmaticus Office Visit 12/14/2014 9:15a [facility] Yancy Lisa M., 276.8 Hypopotassemia M.D. 272.2 Hyperlipidemia Mixed 401.1 Hypertension Benign 556.9 Ulcerative Colitis Unspec 536.8 Stomach Dyspepsia & Other Spec Disorders Of Function 530.11 Esophagitis Reflux 477.8 Rhinitis Allergic Due To Other Allergen 715.90 Osteoarthrosis Unspec Genlzd Or Localized Site Unspec 493.90 Asthma Unspec W/O Status Asthmaticus Office Visit 09/15/2014 9:00a [facility] Lauren Raygoza, 401.1 Hypertension Benign 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 272.2 Hyperlipidemia Mixed 556.9 Ulcerative Colitis Unspec 276.8 Hypopotassemia 477.8 Rhinitis Allergic Due To Other Allergen 530.11 Esophagitis Reflux 536.8 Stomach Dyspepsia & Other Spec Disorders Of Function Office Visit 09/01/2014 3:00p [facility] Lauren Raygoza, 276.8 Hypopotassemia 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 272.2 Hyperlipidemia Mixed 401.1 Hypertension Benign 556.9 Ulcerative Colitis Unspec 536.8 Stomach Dyspepsia & Other Spec Disorders Of Function V04.81 Need For Prophylactic Vaccination & Inoculation/Influenza Office Visit 06/18/2014 8:30a [facility] Lauren Raygoza, V72.31 Routine Perinatal Nurse 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 Examination 401.1 Hypertension Benign 530.11 Esophagitis Reflux 477.8 Rhinitis Allergic Due To Other Allergen 715.90 Osteoarthrosis Unspec Genlzd Or Localized Site Unspec 536.8 Stomach Dyspepsia & Other Spec Disorders Of Function 493.90 Asthma Unspec W/O Status Asthmaticus 556.9 Ulcerative Colitis Unspec 276.8 Hypopotassemia 780.79 Malaise And Fatigue Other 272.2 Hyperlipidemia Mixed Office Visit 05/26/2014 2:15p [facility] Yancy Lisa 401.1 Hypertension Marsha Sanchez M.D. 530.11 Esophagitis [...] Index 27.0-27.9 Adult Office Visit 03/26/2014 4:00p [facility] Alban, 401.1 Hypertension Benign Marcie 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 530.11 Esophagitis Reflux 477.8 Rhinitis Allergic Due To Other Allergen 715.90 Osteoarthrosis Unspec Genlzd Or Localized Site Unspec 536.8 Stomach Dyspepsia & Other Spec Disorders Of Function 493.90 Asthma Unspec W/O Status Asthmaticus 556.9 Ulcerative Colitis Unspec 276.8 Hypopotassemia 780.79 Malaise And Fatigue Other 272.2 Hyperlipidemia Mixed Office Visit 02/20/2014 4:15p [facility] Alban, 401.1 Hypertension Benign Marcie 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 272.2 Hyperlipidemia Mixed 530.11 Esophagitis Reflux 477.8 [...] 462 Pharyngitis Acute Office Visit 02/03/2014 9:15a [facility] Alban, 401.1 Hypertension Benign Marcie, 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 272.2 Hyperlipidemia Mixed 530.11 Esophagitis Reflux 477.8 Rhinitis Allergic Due To Other Allergen 715.90 Osteoarthrosis Unspec Genlzd Or Localized Site Unspec 536.8 Stomach Dyspepsia & Other Spec Disorders Of Function 493.90 Asthma Unspec W/O Status Asthmaticus 556.9 Ulcerative Colitis Unspec Office Visit 01/06/2014 9:45a [facility] Alban, 401.1 Hypertension Benign Marcie, 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 272.2 Hyperlipidemia Mixed 530.11 Esophagitis Reflux 477.8 Rhinitis Allergic Due To Other Allergen 715.90 Osteoarthrosis Unspec Genlzd Or Localized Site Unspec 536.8 Stomach Dyspepsia & Other Spec Disorders Of Function 493.90 Asthma Unspec W/O Status Asthmaticus 556.9 Ulcerative Colitis Unspec Office Visit 12/23/2013 9:00a [facility] Alban, 401.1 Hypertension Benign Marcie, 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 272.2 Hyperlipidemia Mixed 530.11 Esophagitis Reflux 477.8 Rhinitis Allergic Due To Other Allergen 715.90 Osteoarthrosis Unspec Genlzd Or Localized Site Unspec 536.8 Stomach Dyspepsia & Other Spec Disorders Of Function 493.90 Asthma Unspec W/O Status Asthmaticus 556.9 Ulcerative Colitis Unspec Office Visit 10/21/2013 3:00p [facility] Alban, 401.1 Hypertension Benign Marcie, 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 272.2 Hyperlipidemia Mixed 530.11 Esophagitis Reflux 477.8 Rhinitis Allergic Due To Other Allergen 715.90 Osteoarthrosis Unspec Genlzd Or Localized Site Unspec 536.8 Stomach Dyspepsia & Other Spec Disorders Of Function 493.90 Asthma Unspec W/O Status Asthmaticus 556.9 Ulcerative Colitis Unspec Office Visit 09/08/2013 8:45a [facility] Alban, 401.1 Hypertension Benign Marcie, 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 272.2 Hyperlipidemia Mixed 530.11 Esophagitis Reflux 477.8 Rhinitis Allergic Due To Other Allergen 715.90 Osteoarthrosis Unspec Genlzd Or Localized Site Unspec 536.8 Stomach Dyspepsia & Other Spec Disorders Of Function 493.90 Asthma Unspec W/O Status Asthmaticus 556.9 Ulcerative Colitis Unspec V04.81 Need For Prophylactic Vaccination & Inoculation/Influenza Office Visit 08/20/2013 8:45a [facility] Marcie Phoenix, 461.8 Sinusitis Acute 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 Other 786.2 Cough 388.70 Otalgia & Earache Unspec 462 Pharyngitis Acute 401.1 Hypertension Benign 272.2 Hyperlipidemia Mixed 530.11 Esophagitis Reflux 477.8 Rhinitis Allergic Due To Other Allergen 715.90 Osteoarthrosis Unspec Genlzd Or Localized Site Unspec 536.8 Stomach Dyspepsia & Other Spec Disorders Of Function 493.90 Asthma Unspec W/O Status Asthmaticus 556.9 Ulcerative Colitis Unspec Office Visit 08/05/2013 10:15a [facility] Alban, 401.1 Hypertension Benign Marcie, 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 272.2 Hyperlipidemia Mixed 530.11 Esophagitis Reflux 477.8 Rhinitis Allergic Due To Other Allergen 715.90 Osteoarthrosis Unspec Genlzd Or Localized Site Unspec 536.8 Stomach Dyspepsia & Other Spec Disorders Of Function 493.90 Asthma Unspec W/O Status Asthmaticus 556.9 Ulcerative Colitis Unspec Office Visit 03/27/2013 10:15a [facility] Yancy Lisa 401.1 Hypertension Marsha Sanchez M.D. 272.2 Hyperlipidemia Mixed 530.11 Esophagitis Reflux 477.8 Rhinitis Allergic Due To Other Allergen 715.90 Osteoarthrosis Unspec Genlzd Or Localized Site Unspec 536.8 Stomach Dyspepsia & Other Spec Disorders Of Function 493.90 Asthma Unspec W/O Status Asthmaticus 787.91 Diarrhea Office Visit 09/05/2012 [facility] MonahanJoslyn cullene 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 401.1 Hypertension 2:00p Office Benign 272.2 Hyperlipidemia Mixed 530.11 Esophagitis Reflux 477.8 Rhinitis Allergic Due To Other Allergen 715.90 Osteoarthrosis Unspec Genlzd Or Localized Site Unspec V04.81 Need For Prophylactic Vaccination & Inoculation/Influenza Office Visit 03/11/2012 11:15a [facility] Yancy Lisa 401.1 Hypertension Marsha Sanchez M.D. 272.2 Hyperlipidemia Mixed 530.11 Esophagitis Reflux 477.8 Rhinitis Allergic Due To Other Allergen 715.90 Osteoarthrosis Unspec Genlzd Or Localized Site Unspec Office Visit 10/17/2011 9:45a [facility] Yancy Lisa 401.1 Hypertension Benign M., M.D. 272.2 Hyperlipidemia Mixed 530.11 Esophagitis Reflux 477.8 Rhinitis Allergic Due To Other Allergen Office Visit 10/03/2011 9:15a [facility] Yancy Lisa 401.1 Hypertension Benign M., M.D. 272.2 Hyperlipidemia Mixed 477.8 Rhinitis Allergic Due To Other Allergen 530.11 Esophagitis Reflux Office Visit 09/11/2011 12:30p [facility] Yancy Lisa 401.1 Hypertension Benign M., M.D. 272.2 Hyperlipidemia Mixed 536.8 Stomach Dyspepsia & Other Spec Disorders Of Function 715.90 Osteoarthrosis Unspec Genlzd Or Localized Site Unspec V04.81 Need For Prophylactic Vaccination & Inoculation/Influenza Office Visit 03/21/2011 9:15a [facility] Yancy Lisa 401.1 Hypertension Benign M., M.D. 272.2 Hyperlipidemia Mixed Office Visit 03/14/2011 3:15p [facility] Yancy Lisa 401.1 Hypertension Benign M., M.D. 272.2 Hyperlipidemia Mixed 477.8 Rhinitis Allergic Due To Other Allergen Office Visit 11/11/2009 2:00p [facility] Yancy Lisa 401.1 Hypertension Benign M., M.D. 272.2 Hyperlipidemia Mixed 477.8 Rhinitis Allergic Due To Other Allergen Office Visit 10/26/2009 9:45a [facility] Yancy Lisa 401.1 Hypertension Benign M., M.D. 272.2 Hyperlipidemia Mixed Office Visit 09/21/2009 4:00p [facility] Yancy Lisa 796.2 Blood Pressure M., M.D. Reading Elevated W/O Hypertension 401.1 Hypertension Benign 272.2 Hyperlipidemia Mixed 789.07 Pain Abdominal Generalized Plan of Treatment Future Appointment(s):02/10/2019 8:45 am - Prakash Lim N.P. at [facility]
--- OUTSIDE RECORDS SUMMARY | 2019-03-06 10:23 | XMS REPORT | Continuity of Care Document ---
:1945 External Reference #:[id number] Author Name Prakash Lim N.P. Address [address] [facility] [address] [place] [address] Care Team Providers Name Role Phone Yancy Lisa MD Care Team Information Supervisor [employer] Unavailable Payers Date Identification Numbers Payment Provider Subscriber Effective: 2010 Policy Number: [id number] Medicare Alban Harden PayID: [id number] [address] [place] [address] Effective: 2013 Policy Number: [facility] Maribell Harden [id number] [facility] PayID: [id number] [address] [place] [address] Effective: 2013 Policy Number: [id number] [facility] Alban Harden Expires: 2013 [address] [address] [place] [address] Expires: 2012 Policy Number: [id number] [facility] Maribell Harden [address] [address] [place] [address] Effective: 2005 Policy Number: [id number] [facility] Alban Harden Expires: 2008 Group Number: [id number] [address] PayID: [id number] [place] [address] Expires: 2009 Policy Number: [id number] [facility] Maribell Harden Group Number: [id number] [address] PayID: [id number] [place] [address] Advance Directives Description No Information Available Problems [...] Form Strength Qnty SIG Indications Ordering Provider Shazia M10 01/25/ Active Tablets ER 10Meq 90tab 1 by E87.6 2014 s mouth Yancy Sanchez, every M.D. day Hydrochlorothiazide 01/06/ Active Tablets 25mg 90tab take I10 2013 s one Yancy Sanchez, tablet M.D. by mouth every day Lopressor 03/08/ Active Tablets 50mg 135ta 1 2 I10 Sloan, 2011 bs by Yancy Sanchez, mouth M.DReynaldo every day Imelda Allergy 03/08/ Active Tablets 180mg 1 by J30.2 [place], 2011 mouth Yancy Sanchez, every M.D. day Tums 03/08/ Active Chewtabs 500mg as K30 [place]loan, 2011 needed Yancy Sanchez M.D. K21.0 Apriso Active Caps ER 0.375gm 4 caps by K51.90 Unknown 24HR mouth qday -per dr thomas Mercaptopurine Active Tablets 50mg 1 tab by K51Imer Unknown mouth every day Gastro Hydrocortisone 07/18/2017 - Hx Cream 2.5% 30g apply to L23.7 Slona, 08/27/2018 m Upper Arms Yancy Sanchez, twice a M.D. day as needed Niacin ER 02/14/2017 - Hx Tablets ER 500mg 90t take one E78.2 [place]loan, (Antihyperlipidem 02/10/2019 abs tablet by stephanie Zapata) mouth at M.D. bedtime Atorvastatin 01/21/2016 - Hx Tablets 10mg 90t 1 by mouth E78.2 Sloan, Calcium 05/03/2016 abs every day Yancy Sanchez M.D. Lipitor 01/25/2015 - Hx Tablets 20mg 30t 1 by mouth 272.2 [place]loan, 04/05/2015 abs every day Yancy Sanchez M.D. Fish Oil 03/26/2014 - Hx Capsules 1000mg 60c 1 by mouth E78.2 [place], 01/21/2016 aps twice a Yancy Sanchez, day M.D. Lipofen 02/20/2014 - Hx Capsules 50mg 30c 1 Cap PO 272.2 [place]loan, 03/26/2014 aps Qday With Yancy Sanchez, Marvin Meal M.D. Levofloxacin 02/20/2014 - Hx Tablets 500mg 10t 1 po qd 461.9 [place], 03/02/2014 abs Yancy Sanchez M.D. 466.0 Benzonatate 02/20/2014 - Hx Capsules 100mg 30caps 1 capsule 466.0 [place]loan , 03/02/2014 po tid Ahmanesha prn for Farrukh Sanchez cough Mucinex 02/20/2014 - Hx Tablets ER 600mg 1 po bid 461.9 [place], 02/24/2014 12HR Yancy Sanchez M.D. Klor-Con M20 02/04/2014 - Hx Tablets ER 20Meq 30tabs Two tabs 276.8 [place], 09/15/2014 on -W- Dickmad One tab Farrukh Sanchez on / Sun Hydrochlorothiazide 12/23/2013 - Hx Tablets 12.5mg 30tabs 1 tab po 401.1 [place], 01/06/2014 qam. Yancy Sanchez M.D. Amlodipine Besylate 09/08/2013 - Hx [...] 556.9 Sloan, 05/19/2014 DR rajan Sanchez M.D. [facility] Thomas 08/05/2013 - Hx Tablets ER 9mg [...] Given 09/01/2018 Influenza,Unspecified U-Flu Given 08/18/2017 Influenza,Unspecified [id number] Given 10/01/2015 Pneumovax [id number] Q2038 Given 09/14/2015 Flu Vaccine 3+Yrs Old(Fluzone) Q2038 Given 09/01/2014 Flu Vaccine 3+Yrs Old(Fluzone) [id number] Q2038 Given 09/08/2013 Flu Vaccine 3+Yrs Old(Fluzone) [id number] Q2038 Given 09/05/2012 Flu Vaccine 3+Yrs Old(Fluzone) [id number] 81089 Given 09/05/2012 Flu Vaccine [id number] Q2038 Given 09/11/2011 Flu Vaccine 3+Yrs Old(Fluzone) 43890 Given 09/05/1999 Influenza Vaccine 49465 Given 10/08/1998 Influenza Vaccine 43886 Given 09/22/1997 Influenza Vaccine 29606 Given 09/12/1996 Influenza Vaccine 89095 Given 09/19/1995 Influenza Vaccine 49900 Given 09/19/1995 Influenza Vaccine [id number] Ordered 08/20/2016 Flu Vaccine Vital Signs Date Vital Result Comment 02/10/2019 8:44am BP Systolic 130 mmHg BP [...] Rate 14 /min 09/01/2014 3:09pm BP Systolic 40107 mmHg Height 62 inches 5'2" Weight 152.00 [...] Date Facility Test Result H/L Range Note Laboratory test 02/10/2019 [facility] Magnesium <pending> finding [address] (607)- - Laboratory test 02/10/2019 [facility] Hemoglobin A1c <pending> finding [address] (607)- - Sed Rate <pending> C Reactive Protein <pending> Rheumatoid Factor <pending> Uric Acid <pending> Vitamin D 25 Hydroxy <pending> TSH, Ultrasenstive <pending> Laboratory test finding 08/06/2018 [facility] Esr 28 mm/h (0-30) [address] (607)- - 25 Hydroxy Vit D @ 48 ng/mL (31-100) 1 Direct LDL @ 159 mg/dL High (<130) 2 Hemoglobin A1c 08/06/2018 [facility] Hemoglobin A1c @ 6.1 % High (4.0- 6.0) 3 [address] (607)- - Est Average Glucose 128 mg/dL Laboratory 08/06/2018 [facility] TSH,Ultrasensitive @ 1.340 (0.360- 4.170) test finding [address] mIU/L (607)- - Lipid 08/06/2018 [facility] Cholesterol @ 239 High (0-200) [address] [place] [address] STEVEN mg/dL (607)- - Triglyceride @ 499 mg/dL High (30-200) HDL Cholesterol @ 31 mg/dL Low (>40) 4 Chol/HDL Ratio 7.7 RATIO 5 LDL Chol (Calc) UNABLE TO CALCUL <SEE NOTE> mg/dL (<130) 6 CMP 08/06/2018 [facility] Sodium 139 mmol/L (136-145) [address] (607)- - Potassium 3.5 mmol/L Low (3.6-5.2) [...] >60 ml/min/1.73m2 (>59) GFR Interpretation <SEE NOTE> 7 CBC With Diff 08/06/2018 [facility] WBC 7.0 10*3/uL (4.1-11.0) [address] (607)- - RBC 4.36 10*6/uL (4.00-5.40) HGB 13.9 g/dL (12.0-16.0) HCT 40.3 % (36.0-47.0) MCV 92.4 fL (80.0-95.0) MCH 31.9 pg (27.0-32.0) MCHC 34.5 g/dL (32.0-36.0) RDW 14.0 % (10.5-14.5) PLT 250 10*3/uL (150-450) MPV 9.2 fL (7.1-10.7) Neut % 65.5 % (35.0-75.0) Lymph % 21.1 % (16.0-52.0) [place] % 10.8 % High (0.0-8.0) Eos % 1.8 % (0.0-5.0) Baso % 0.8 % (0.0-4.0) Neut # 4.6 10*3/uL (1.8-7.7) Lymph # 1.5 10*3/uL (1.2-4.8) [place] # 0.7 10*3/uL (0.0-0.8) Eos # 0.1 10*3/uL (0.0-0.5) Baso # 0.1 10*3/uL (0.0-0.2) CBC Auto Diff 02/06/2018 [facility] White Blood Count 6.1 10^3/uL N 3.5-10.8 [...] 0-2 Nucleated Red Blood Cells % 0 Comp Metabolic Panel 02/06/2018 [facility] Sodium 134 mmol/L N 133- 145 Potassium 3.3 mmol/L Low 3.5-5.0 Chloride 99 [...] Egfr Non- 73.7 >60 Egfr 94.8 >60 8 Laboratory test 02/06/2018 [facility] TSH (Thyroid Stim 2.29 mcIU/mL N 0.34-5.60 9 finding Horm) Lipid Profile 02/06/2018 [facility] Triglycerides 394 mg/dL 10 (Trig/Chol/HDL) Cholesterol 213 mg/dL 11 HDL Cholesterol 31.1 mg/dL 12 LDL Cholesterol 103 mg/dL 13 Laboratory test 02/06/2018 [facility] Hemoglobin A1c 6.0 % High 4.0- 5.6 14 finding (Glyco HGB) Erythrocyte Sed Rate 47 mm/Hr High 0-40 15 Vitamin D Total 25(Oh) 50.4 ng/mL High 20-50 16 Laboratory test 07/18/2017 [facility] Hemoglobin A1c 5.9 % N Less than 17 finding (Glyco HGB) 6.0 TSH (Thyroid Stim Horm) 1.44 mcIU/mL N 0.34-5.60 18 Lipid Profile 07/18/2017 [facility] Triglycerides 388 mg/dL N 19 (Trig/Chol/HDL) Cholesterol 238 mg/dL N 20 HDL Cholesterol 37.8 mg/dL N 21 LDL Cholesterol 123 mg/dL N 22 Comp Metabolic Panel 07/18/2017 [facility] Sodium 135 mmol/L N 133- 145 Potassium [...] N >60 Egfr 104.4 N >60 23 CBC Auto Diff 07/18/2017 [facility] White Blood Count 6.7 10^3/uL N 3.5-10.8 [...] Nucleated Red Blood Cells % 0.1 N Lipid Profile 03/26/2017 [facility] Triglycerides 327 mg/dL N 24 (Trig/Chol/HDL) Cholesterol 222 mg/dL N 25 HDL Cholesterol 37.0 mg/dL N 26 LDL Cholesterol 120 mg/dL N 27 Laboratory test 03/26/2017 [facility] Hemoglobin A1c 5.3 % N Less than 28 finding (Glyco HGB) 6.0 TSH (Thyroid Stim Horm) 1.61 mcIU/mL N 0.34-5.60 29 Comp Metabolic Panel 03/26/2017 [facility] Sodium 134 mmol/L N 133- 145 Potassium [...] N >60 30 CBC Auto Diff 03/26/2017 [facility] White Blood Count 7.7 10^3/uL N 3.5-10.8 [...] Nucleated Red Blood Cells % 0.1 N CBC Auto Diff 01/17/2017 [facility] White Blood Count 8.2 10^3/uL N 3.5-10.8 31 Red Blood Count 4.33 10^6/uL N 4.0-5.4 [...] % 0 N Comp Metabolic Panel 01/17/2017 [facility] Sodium 133 mmol/L N 133- 145 Potassium [...] 78.6 N >60 Egfr 101.1 N >60 32 Laboratory test finding 01/17/2017 [facility] Lipase 22 U/L N 11.0- 82.0 33 Amylase 51 U/L N 29-103 34 Lipid Profile 01/17/2017 [facility] Triglycerides 471 mg/dL N 35 (Trig/Chol/HDL) Cholesterol 254 mg/dL N 36 HDL Cholesterol 38.4 mg/dL N 37 LDL Cholesterol (SEE NOTE) mg/dL N 38 Laboratory test 01/17/2017 [facility] Hemoglobin A1c 5.9 % N Less than 39 finding (Glyco HGB) 6.0 TSH (Thyroid Stim Horm) 1.68 mcIU/mL N 0.34-5.60 40 Laboratory test 05/03/2016 [facility] Hemoglobin A1c 5.7 % N Less than 41 finding (Glyco HGB) 6.0 Comp Metabolic 05/03/2016 [facility] Sodium 135 mmol/L N 133-145 Panel Potassium [...] 73.0 N >60 Egfr 93.9 N >60 42 Lipid Profile 05/03/2016 [facility] Triglycerides 353 mg/dL N 43 (Trig/Chol/HDL) Cholesterol 205 mg/dL N 44 HDL Cholesterol 41.0 mg/dL N 45 LDL Cholesterol 93 mg/dL N 46 CBC Auto Diff 05/03/2016 [facility] White Blood Count 6.2 10^3/uL N 3.5-10.8 [...] Cells % 0 N Laboratory test 05/03/2016 [facility] Rheumatoid Factor <15 IU/mL N < 15 47 finding TSH (Thyroid Stim Horm) 1.82 ?IU/mL N 0.34-5.60 48 Laboratory test 01/04/2016 [facility] Magnesium 1.9 mg/dL N 1.9-2.7 finding Laboratory test 01/04/2016 [facility] TSH (Thyroid 2.52 ?IU/mL N 0.34 -5.60 finding Stim Horm) Uric Acid 6.3 mg/dL N 2.3-6.6 Vitamin D Total 25(Oh) 36.0 ng/mL N 30-50 Lipid Profile 01/04/2016 [facility] Triglycerides 290 mg/dL N 49 (Trig/Chol/HDL) Cholesterol 245 mg/dL N 50 HDL Cholesterol 44.6 mg/dL N 51 LDL Cholesterol 142 mg/dL N 52 Laboratory test 01/04/2016 [facility] Erythrocyte Sed Rate 39 mm/Hr N 0-40 finding CRP High Sensitivity 3.09 mg/L N 53 Hemoglobin A1c (Glyco HGB) 5.8 % N Less than 6.0 54 Comp Metabolic Panel 01/04/2016 [facility] Sodium 135 mmol/L N 133- 145 Potassium [...] N >60 55 CBC Auto Diff 01/04/2016 [facility] White Blood Count 7.8 10^3/uL N 3.5-10.8 [...] % 0 N CBC W/Automated Diff 04/05/2015 [facility] White Blood Count 7.1 K/uL 3.1- 10.7 [...] % 40.4-72.8 Lymph % 21.7 % 17.0-46.1 [place] % 11.5 % 4.3-13.2 Eo% 2.7 % 0.0-6.6 Bas% 0.7 % 0.0-1.1 Neut# 4.53 K/uL 1.0-7.0 Lymph # 1.55 K/uL Low 1.8-7.0 [place] # 0.82 K/uL 0.3-0.9 Eos # 0.19 K/uL 0.0-0.5 Baso # 0.05 K/uL 0.0-0.1 Comprehensive Metabolic Panel 04/05/2015 [facility] Glucose 120 mg/dL High 74-106 BUN 16 [...] Phosphatase 53 U/L 45-117 Laboratory test 04/05/2015 [facility] Sedimentation Rate 37 mm/hr High 0- 30 finding LDL Cholesterol 04/05/2015 [facility] Cholesterol 232 mg/dL < 200 57 Profile Triglycerides 318 mg/dL < 150 58 HDL Cholesterol 30 mg/dL > 40 59 LDL-Cholesterol 138 mg/dL < 100 60 Laboratory test 12/14/2014 [facility] TSH Reflex FT4 1.30 uIU/mL 0.36- 3.74 61 finding and/or FT3 LDL Cholesterol 12/14/2014 [facility] Cholesterol 265 mg/dL < 200 62 Profile Triglycerides 361 mg/dL < 150 63 HDL Cholesterol 36 mg/dL > 40 64 LDL-Cholesterol 157 mg/dL < 100 65 Laboratory test 12/14/2014 [facility] C-Reactive 0.69 mg/L <3.0 finding Protein,Cardiac Sedimentation Rate 31 mm/hr High 0-30 Comprehensive Metabolic Panel 12/14/2014 [facility] Glucose 93 mg/dL 74- 106 BUN 13 [...] 57 U/L 45-117 CBC W/Automated Diff 12/14/2014 [facility] White Blood Count 7.8 K/uL 3.1- 10.7 [...] % 40.4-72.8 Lymph % 19.4 % 17.0-46.1 [place] % 10.1 % 4.3-13.2 Eo% 0.5 % 0.0-6.6 Bas% 0.5 % 0.0-1.1 Neut# 5.39 K/uL 1.0-7.0 Lymph # 1.50 K/uL 0.8-3.4 [place] # 0.78 K/uL 0.3-0.9 Eos # 0.04 K/uL 0.0-0.5 Baso # 0.04 K/uL 0.0-0.1 Laboratory test finding 09/01/2014 [facility] Potassium 3.8 mmol/L 3.5- 5.1 LDL Cholesterol Profile 09/01/2014 [facility] Cholesterol 213 mg/dL 67 Triglycerides 212 mg/dL 68 HDL Cholesterol 45 mg/dL 69 LDL-Cholesterol 126 mg/dL 70 CBC W/Automated Diff 09/01/2014 [facility] White Blood Count 7.7 K/uL 3.1- 10.7 [...] % 40.4-72.8 Lymph % 27.4 % 17.0-46.1 [place] % 8.6 % 4.3-13.2 Eo% 1.4 % 0.0-6.6 Bas% 0.7 % 0.0-1.1 Neut# 4.75 K/uL 1.0-7.0 Lymph # 2.10 K/uL 0.8-3.4 [place] # 0.66 K/uL 0.3-0.9 Eos # 0.11 K/uL 0.0-0.5 Baso # 0.05 K/uL 0.0-0.1 Comprehensive Metabolic Panel 09/01/2014 [facility] Glucose 78 mg/dL 74- 106 BUN 13 [...] 61 U/L 45-117 Comprehensive Metabolic Panel 06/18/2014 [facility] Glucose 83 mg/dL 76- 115 BUN 15 [...] 69 U/L 50-136 CBC W/Automated Diff 06/18/2014 [facility] White Blood Count 6.8 K/uL 3.1- 10.7 [...] 40.4-72.8 Lymph % 16.9 % Low 17.0-46.1 [place] % 9.8 % 4.3-13.2 Eo% 2.1 % 0.0-6.6 Bas% 0.4 % 0.0-1.1 Neut# 4.79 K/uL 1.0-7.0 Lymph # 1.14 K/uL 0.8-3.4 [place] # 0.66 K/uL 0.3-0.9 Eos # 0.14 K/uL 0.0-0.5 Baso # 0.03 K/uL 0.0-0.1 LDL Cholesterol Profile 06/18/2014 [facility] Cholesterol 239 mg/dL High 120-200 Triglycerides 310 mg/dL High 16-231 HDL Cholesterol 32 mg/dL 29-83 LDL-Cholesterol 145 mg/dL 62-185 Laboratory test finding 06/18/2014 [facility] ThinPrep Pap See Note 73 Specimen Basic Metabolic Panel 02/20/2014 [facility] Glucose 100 mg/dL 76-115 BUN 21 mg/dL 5-23 Creatinine 0.9 mg/dL 0.5-1.4 Glom Filtration Rate, Estimate >60 mL/min >60 If >60 mL/min >60 74 BUN/Creat 23.3 ratio Sodium 138 mmol/L 136-145 Potassium 3.7 mmol/L 3.5-5.1 Chloride 104 mmol/L 98-107 Carbon Dioxide 27 mEq/L 18-29 Anion Gap 11 mEq/L 8-16 Calcium 9.3 mg/dL 8.5-10.1 Basic Metabolic Panel 02/03/2014 [facility] Glucose 84 mg/dL 76-115 BUN 17 mg/dL 5-23 Creatinine 0.8 mg/dL 0.5-1.4 Glom Filtration Rate, Estimate >60 mL/min >60 If >60 mL/min >60 75 BUN/Creat 21.2 ratio Sodium 137 mmol/L 136-145 Potassium 3.2 mmol/L Low 3.5-5.1 Chloride 101 mmol/L 98-107 Carbon Dioxide 28 mEq/L 18-29 Anion Gap 11 mEq/L 8-16 Calcium 9.3 mg/dL 8.5-10.1 CBC W/Automated Diff 02/03/2014 [facility] White Blood Count 9.7 K/uL 3.1- 10.7 [...] % 40.4-72.8 Lymph % 17.0 % 17.0-46.1 [place] % 10.4 % 4.3-13.2 Eo% 2.0 % 0.0-6.6 Bas% 0.3 % 0.0-1.1 Neut# 6.84 K/uL 1.0-7.0 Lymph # 1.65 K/uL 0.8-3.4 [place] # 1.01 K/uL High 0.3-0.9 Eos # 0.19 K/uL 0.0-0.5 Baso # 0.03 K/uL 0.0-0.1 LDL Cholesterol Profile 02/03/2014 [facility] Cholesterol 219 mg/dL High 120-200 Triglycerides 299 mg/dL High 16-231 HDL Cholesterol 28 mg/dL Low 29-83 LDL-Cholesterol 131 mg/dL 62-185 Liver Function Tests 02/03/2014 [facility] Total Protein 8.2 g/dL High 6.3- 8.0 Albumin 3.7 g/dL 3.5-5.0 Globulin 4.5 g/dL High 1.9-4.3 Alb/Glob 0.8 ratio Bilirubin,Total 0.5 mg/dL 0.2-1.2 Bilirubin,Direct 0.1 mg/dL 0.1-0.4 Bilirubin,Indirect 0.4 mg/dL 0.0-0.9 Sgot/Ast 33 U/L 16-40 SGPT/Alt 51 U/L 30-65 Alkaline Phosphatase 85 U/L 50-136 Laboratory test finding 02/03/2014 [facility] Sedimentation Rate 57 mm/hr High 0-30 Basic Metabolic Panel 12/23/2013 [facility] Glucose 93 mg/dL 76-115 BUN 10 mg/dL 5-23 Creatinine 0.7 mg/dL 0.5-1.4 Glom Filtration Rate, Estimate >60 mL/min >60 If >60 mL/min >60 76 BUN/Creat 14.2 ratio Sodium 139 mmol/L 136-145 Potassium 3.8 mmol/L 3.5-5.1 Chloride 107 mmol/L 98-107 Carbon Dioxide 23 mEq/L 18-29 Anion Gap 13 mEq/L 8-16 Calcium 9.2 mg/dL 8.5-10.1 Liver Function Tests 12/23/2013 [facility] Total Protein 6.8 g/dL 6.3-8.0 Albumin 3.9 g/dL 3.5-5.0 Globulin 2.9 g/dL 1.9-4.3 Alb/Glob 1.3 ratio Bilirubin,Total 0.4 mg/dL 0.2-1.2 Bilirubin,Direct 0.1 mg/dL 0.1-0.4 Bilirubin,Indirect 0.3 mg/dL 0.0-0.9 Sgot/Ast 50 U/L High 16-40 SGPT/Alt 65 U/L 30-65 Alkaline Phosphatase 98 U/L 50-136 CBC W/Automated Diff 12/23/2013 [facility] White Blood Count 5.6 K/uL 3.1- 10.7 [...] % 40.4-72.8 Lymph % 26.3 % 17.0-46.1 [place] % 10.0 % 4.3-13.2 Eo% 1.6 % 0.0-6.6 Bas% 0.5 % 0.0-1.1 Neut# 3.45 K/uL 1.0-7.0 Lymph # 1.47 K/uL 0.8-3.4 [place] # 0.56 K/uL 0.3-0.9 Eos # 0.09 K/uL 0.0-0.5 Baso # 0.03 K/uL 0.0-0.1 Basic Metabolic Panel 08/20/2013 [facility] Glucose 69 mg/dL Low 76-115 BUN 11 mg/dL 5-23 Creatinine 0.5 mg/dL 0.5-1.4 Glom Filtration Rate, Estimate >60 mL/min >60 If >60 mL/min >60 77 BUN/Creat 22.0 ratio Sodium 140 mmol/L 136-145 Potassium 3.7 mmol/L 3.5-5.1 Chloride 105 mmol/L 98-107 Carbon Dioxide 27 mEq/L 18-29 Anion Gap 12 mEq/L 8-16 Calcium 8.6 mg/dL 8.5-10.1 CBC W/Automated Diff 08/20/2013 [facility] White Blood Count 7.3 K/uL 3.1- 10.7 [...] % 40.4-72.8 Lymph % 23.3 % 17.0-46.1 [place] % 9.9 % 4.3-13.2 Eo% 0.8 % 0.0-6.6 Bas% 0.4 % 0.0-1.1 Neut# 4.76 K/uL 1.0-7.0 Lymph # 1.69 K/uL 0.8-3.4 [place] # 0.72 K/uL 0.3-0.9 Eos # 0.06 K/uL 0.0-0.5 Baso # 0.03 K/uL 0.0-0.1 Laboratory test 08/20/2013 [facility] C-Reactive 1.24 mg/L 0.00-3.00 78 finding Protein,Cardiac Sedimentation Rate 31 mm/hr High 0-30 LDL Cholesterol Profile 08/20/2013 [facility] Cholesterol 172 mg/dL 120- 200 Triglycerides 154 mg/dL 16-231 HDL Cholesterol 45 mg/dL 29-83 LDL-Cholesterol 96 mg/dL 62-185 Liver Function Tests 08/20/2013 [facility] Total Protein 6.8 g/dL 6.3-8.0 Albumin 3.1 g/dL Low 3.5-5.0 Globulin 3.7 g/dL 1.9-4.3 Alb/Glob 0.8 ratio Bilirubin,Total 0.3 mg/dL 0.2-1.2 Bilirubin,Direct < 0.1 mg/dL Low 0.1-0.4 Bilirubin,Indirect 0.2 mg/dL 0.0-0.9 Sgot/Ast 12 U/L Low 16-40 SGPT/Alt 20 U/L Low 30-65 Alkaline Phosphatase 79 U/L 50-136 Laboratory test 08/20/2013 [facility] Thyroid Stim 1.64 uIU/mL 0.49-4.67 finding Hormone Surgical 06/12/2013 [facility] S RUN DATE: 79 Pathology 06/16/ <SEE NOTE> CBC Auto Diff 03/27/2013 [facility] White Blood 6.4 10^3/uL 4.8- 10.8 Count [...] Cells % 0.1 Basic Metabolic Panel 03/27/2013 [facility] Sodium 136 mmol/L 133- 145 Potassium 4.1 mmol/L 3.5-5.0 Chloride 105 mmol/L 101-111 Co2 Carbon Dioxide 25.0 mmol/L 22-32 Anion Gap 6.0 mmol/L 2-11 Glucose 86 mg/dL 70-100 Blood Urea Nitrogen 14 mg/dL 6-24 Creatinine 0.70 mg/dL 0.50-1.40 BUN/Creatinine Ratio 20.0 8-20 Calcium 8.8 mg/dL 8.1-9.9 Egfr Non- 83.5 >60 Egfr 107.3 >60 80 Lipid Profile 03/27/2013 [facility] Triglycerides 149 mg/dL 40-200 (Trig/Chol/HDL) Cholesterol 179 mg/dL Less than 200 HDL Cholesterol 32 mg/dL Low 40-60 81 Cholesterol/HDL Ratio 5.6 Average High 1-4.44 LDL Cholesterol 117.2 mg/dL High Less Than 100 82 Liver Function Panel 03/27/2013 [facility] Total Protein 6.9 g/dL 6.2-8.1 Albumin 3.1 g/dL Low 3.2-5.2 Globulin 3.8 g/dL 2-4 Albumin/Globulin Ratio 0.8 Low 1-3 Total Bilirubin 0.5 mg/dL 0.4-1.5 Direct Bilirubin 0.1 mg/dL 0.1-0.5 Indirect Bilirubin 0.4 mg/dL 0.3-1.0 Alkaline Phosphatase 72 U/L 30-110 Alt 16 U/L 14-54 Ast 20 U/L 12-42 Laboratory test 03/27/2013 [facility] TSH (Thyroid 1.32 miu/mL 0.34- 5.60 finding Stimulating Horm) Amylase 61 U/L 20-120 Lipase 25 U/L 22-51 Erythrocyte Sed Rate 89 mm/Hr High 0-40 CRP High Sensitivity 21.5 mg/L 83 CA 125 Antigen 9.1 U/mL 2.0-35.0 84 1 A REVIEW OF THE LITERATURE SUGGESTS THE FOLLOWING RANGES FOR THE CLASSIFICATION OF 25-OH VITAMIN D STATUS: VITAMIN D STATUS 25-OH VITAMIN D DEFICIENCY <20 NG/ML INSUFFICIENCY 20-30 NG/ML SUFFICIENCY 31 - 100 NG/ML TOXICITY > 100 NG/ML A PEDIATRIC REFERENCE RANGE HAS NOT BEEN ESTABLISHED USING THIS METHOD. 2 PER NCEP ATP III GUIDELINES: OPTIMAL < 100 NEAR OPTIMAL 100 - 129 BORDERLINE HIGH 130 - 159 HIGH 160 - 189 VERY HIGH > 189 3 Performed using Siemens Mcdowell immunoassay. Care must be taken when interpreting HbA1c results in patients with a hemoglobin variant or decreased erythrocyte lifespan. Values 5.7 - 6.4% suggest prediabetes. Values >=6.5% are diagnostic for diabetes. REFERENCE: DIABETES CARE 2018: 41(S13-S27). 4 PER NCEP ATP III GUIDELINES: RESULTS LOWER THAN 40 MG/DL ARE SUGGESTIVE OF INCREASED RISK FOR CORONARY ARTERY DISEASE. RESULTS > OR=TO 60 MG/DL ARE CONSIDERED A NEGATIVE RISK FACTOR. 5 INTERPRETATION OF CHOL-HDL RATIO CHD RISK FEMALE MALE VERY HIGH >8.3 >14.3 HIGH 5.6- 8.3 6.7- 14.3 AVERAGE 3.7- 5.6 4.0- 6.7 BELOW AVERAGE 2.5- 3.7 2.7- 4.0 PROTECTED <2.5 <2.7 6 UNABLE TO CALCULATE VALID LDL DUE TO INTERFERENCE FROM ELEVATED TRIGLYCERIDES (GREATER THAN 300 MG/DL). SEE RESULT FOR DIRECT LDL. 7 NORMAL KIDNEY FUNCTION OR MILD DISEASE - GFR >OR=60 CHRONIC KIDNEY DISEASE - GFR 15 - 59 RENAL FAILURE - GFR <15 Est. GFR calculation based on the MDRD study equation, which assumes a steady state for creatinine. Est. GFR should not be used for medication dosing. 8 Because ethnic data is not always readily [...] 15-29 5 Kidney failure <15 (or dialysis) 9 [id number] Desirable: <150 Borderline High: 150-199 High: 200-499 Very High: >500 11 Desirable: <200 Borderline High: 200-239 High: >239 12 Low: <40 Desirable: 40-60 High: >60 13 Desirable: <100 Near Optimal: 100-129 Borderline High: 130-159 High: 160-189 Very High: >189 14 Therapeutic target for the treatment of diabetes mellitus patients is <7% HBA1C, and in selective patients <6.0%. Please refer to [place] [employer] diabetic care guidelines for further information. 15 [id number] 17 Therapeutic target for the treatment of diabetes Mellitus patients is <7% HBA1C, and in selective patients <6.0%.Please refer to [place] [employer] Diabetic care guidelines for further information. 18 [id number] Desirable <150 Borderline high 150-199 High 200-499 Very High >500 20 Desirable <200 Borderline high 200-239 High >239 21 Low <40 Desirable: 40-60 High: >60 22 Desirable: <100 mg/dL Near Optimal: 100-129 mg/dL Borderline High: 130-159 mg/dL High: 160-189 mg/dL Very High: >189 mg/dL 23 Because ethnic data is not always [...] and in selective patients <6.0%.Please refer to [place] Diabetic care guidelines for further information. 29 [id number] 30 Because ethnic data is not always [...] LAST VISIT---DIET SHEET SENT TO PT 32 Because ethnic data is not always readily [...] 15-29 5 Kidney failure <15 (or dialysis) 33 [id number] Desirable <150 Borderline high 150-199 High 200-499 Very High >500 36 Desirable <200 Borderline high 200-239 High >239 37 Low <40 Desirable: 40-60 High: >60 38 Unable to calculate LDL as triglyceride is > 400 39 Therapeutic target for the treatment of diabetes Mellitus patients is <7% HBA1C, and in selective patients <6.0%.Please refer to [place] [employer] Diabetic care guidelines for further information. 40 [id number] 41 Therapeutic target for the treatment of diabetes Mellitus patients is <7% HBA1C, and in selective patients <6.0%.Please refer to [place] [employer] Diabetic care guidelines for further information. 42 Because ethnic data is not always readily [...] 15-29 5 Kidney failure <15 (or dialysis) 43 Desirable <150 Borderline high 150-199 High 200-499 Very High >500 44 Desirable <200 Borderline high 200-239 High >239 45 Low <40 Desirable: 40-60 High: >60 46 Desirable: <100 mg/dL Near Optimal: 100-129 mg/dL Borderline High: 130-159 mg/dL High: 160-189 mg/dL Very High: >189 mg/dL 47 Test Performed by: [address] [address] Personal Injury Specialist: Prakash Chino II, M.D., Ph.D. 48 [id number] Desirable <150 Borderline high 150-199 High [...] and in selective patients <6.0%.Please refer to [place] [employer] Diabetic care guidelines for further [...] found at [email or web address]. 73 CYTOLOGY SCREENER - COMMERCIAL SOLAR SALES CONSULTANT @ 12/30 Screened by: Vilma Alexandre SCT(ASCP) PAP: FINAL REPORT SPECIMEN ADEQUACY: SPECIMEN SATISFACTORY FOR INTERPRETATION INTERPRETATION: NEGATIVE FOR INTRAEPITHELIAL LESION OR MALIGNANCY COMMENT: ATROPHIC PATTERN THINPREP PREPARED PAP SLIDE # Prepared in the Cytology laboratory from the ThinPrep sample is 1 ThinPrep smear. PAP ACCESSI QUESTIONNAIRE 11/28 PERTINENT CLINICAL HISTORY FOR PAP (COMMERCIAL SOLAR SALES CONSULTANT) CYTOLOGY (Check all that apply): ? Post [...] Signed Electronically signed VILMA ALEXANDRE 06/22/14 1444 74 Note: Persistent reduction for [...] 3.00 High >3.00 79 RUN DATE: 06/16/13 [facility] LAB LIVE PAGE 1 RUN TIME: 75[address] [place], [place] [address] Specimen Inquiry Name: MARIBELL HARDEN Nate : [address]: Billy Thomas MD Acct: [id number] Unit: [id number] AGE: 67 Location: [facility] Re06/12/13 SEX: F Status: REG REF SPEC: [id number] GEOVANNY: 06/12/13 DR: Billy Thomas MD REQ: [id number] RECD: 06/12/13 STATUS: FERN STOLL DR: Yancy [...] performed at Main Lab DEPARTMENT OF PATHOLOGY, [address] [place] [address] Beau Funez M.D. Director [facility] Permit #[id number] RUN DATE: 06/16/13 [facility] LAB LIVE PAGE 2 RUN TIME: [address] [place], [place] [address] Specimen Inquiry Patient: MARIBELL HARDEN [id number] (Continued) CLINICAL HISTORY (Continued) CLINICAL HISTORY Screening [...] performed at Main Lab DEPARTMENT OF PATHOLOGY, [address] [place] [address] Beau Funez M.D. Director [facility] Permit #[id number] Because ethnic data is not always [...] Assayed by Chemiluminescence Microparticle Immunoassay on the [employer] Access2. The values obtained with different assay methods or kits cannot be used interchangeably. Procedures Date Code Description Status 08/28/2018 99845 EKG Completed 03/19/2018 20846657 Mammogram Completed 07/18/2017 88823 Visual Screening Test Completed 07/18/2017 38783 EKG Completed 07/18/2017 48391 Audiometry, Bekesy, Screening Completed 06/07/2016 89856 Visual Screening Test Completed 06/07/2016 90049 EKG Completed 06/07/2016 16417 Audiometry, Bekesy, Screening Completed 05/31/2015 06854 Visual Screening Test Completed 05/31/2015 29613 EKG Completed 05/31/2015 61591 Audiometry, Bekesy, Screening Completed 05/26/2014 10833 EKG Completed 11/19/2012 [id number] Colonoscopy Completed 03/25/2009 41014 Spirometry Completed 09/01/2008 93178 Tympanometry Completed 01/29/2007 18629 Tympanometry Completed 07/27/2005 79902 Tympanometry Completed 08/23/2004 30783 Tympanometry Completed 03/23/1995 69976 Unlisted Therapeutic/Diagnostic Injection Completed 03/23/1995 32346 Unlisted Therapeutic/Diagnostic Injection Completed Encounters Type Date Location Provider Dx Diagnosis Office Visit 02/10/[address] [facility] Prakash Lim, I10 Essential ( primary) 8:45a N.P. hypertension E78.2 Mixed hyperlipidemia R73.01 Impaired [...] (BMI) 28.0-28.9, adult Office Visit 02/05/2019 9:00a [place] Prakash Lim, I10 Essential (primary) N.P. [...] (BMI) 28.0-28.9, adult Office Visit 08/28/2018 8:30a [facility] Prakash Lim, I10 Essential (primary) N.P. [...] Encounter for immunization Office Visit 08/06/2018 3:45p [facility] Yancy Lisa I10 Essential ( primary) [...] D deficiency, unspecified [facility] Mario Sanchez. hypertension E78.2 Mixed hyperlipidemia R73.01 Impaired fasting glucose K51.90 Ulcerative colitis, unspecified, without complications M15.9 Polyosteoarthritis, unspecified K30 Functional dyspepsia K21.0 Gastro-esophageal reflux disease with esophagitis L20.9 Atopic dermatitis, unspecified J30.9 Allergic rhinitis, unspecified R94.5 Abnormal results of liver function studies J45.909 Unspecified asthma, uncomplicated E87.6 Hypokalemia H53.30 Unspecified disorder of binocular vision E55.9 Vitamin D deficiency, unspecified Office Visit 02/06/2018 8:15a [facility] Yancy Lisa I10 Essential ( primary) Mario Sanchez. hypertension E78.2 Mixed hyperlipidemia R73.01 Impaired fasting glucose K51.90 Ulcerative colitis, unspecified, without complications M15.9 Polyosteoarthritis, unspecified K30 Functional dyspepsia K21.0 Gastro-esophageal reflux disease with esophagitis L20.9 Atopic dermatitis, unspecified J30.9 Allergic rhinitis, unspecified R94.5 Abnormal results of liver function studies J45.909 Unspecified asthma, uncomplicated E87.6 Hypokalemia H53.30 Unspecified disorder of binocular vision E55.9 Vitamin D deficiency, unspecified Office Visit 07/18/2017 10:15a [facility] Rubi Jae Z00.01 Encounter for [facility] general adult medical exam w abnormal findings Z00.01 Encounter for general adult medical exam w abnormal findings E78.2 Mixed hyperlipidemia K51.90 Ulcerative colitis, unspecified, without complications I10 Essential (primary) hypertension L23.7 Allergic contact dermatitis due to plants, except food Office Visit 04/11/2017 9:30a [facility] Jae Venegas E78.2 Mixed hyperlipidemia COMPUTER PROCESSING SCHEDULER M15.9 Polyosteoarthritis, unspecified K30 Functional dyspepsia K51.90 Ulcerative colitis, unspecified, without complications K21.0 Gastro-esophageal reflux disease with esophagitis R73.01 Impaired fasting glucose Office Visit 03/26/2017 11:30a [facility] Jae Venegas E78.2 Mixed hyperlipidemia COMPUTER PROCESSING SCHEDULER M15.9 Polyosteoarthritis, unspecified K51.90 Ulcerative colitis, unspecified, without complications K21.0 Gastro-esophageal reflux disease with esophagitis I10 Essential (primary) hypertension Office Visit 02/14/2017 3:30p [facility] Jae Venegas E78.2 Mixed hyperlipidemia COMPUTER PROCESSING SCHEDULER R73.01 Impaired fasting glucose M15.9 Polyosteoarthritis, unspecified K51.90 Ulcerative colitis, unspecified, without complications Office Visit 01/17/2017 8:45a [facility] Jae Venegas K51.90 Ulcerative colitis, COMPUTER PROCESSING SCHEDULER unspecified, without complications K21.0 Gastro-esophageal reflux disease with esophagitis J30.2 Other seasonal allergic rhinitis E78.2 Mixed hyperlipidemia I10 Essential (primary) hypertension R73.01 Impaired fasting glucose M15.9 Polyosteoarthritis, unspecified R53.83 Other fatigue M79.605 Pain in left leg Office Visit 06/07/2016 8:30a [facility] Jae Venegas Z00.01 Encounter for [facility] general adult medical exam w abnormal findings E78.2 Mixed hyperlipidemia I10 Essential (primary) hypertension K51.90 Ulcerative colitis, unspecified, without complications K21.0 Gastro-esophageal reflux disease with esophagitis J30.2 Other seasonal allergic rhinitis M15.9 Polyosteoarthritis, unspecified Office Visit 05/17/2016 8:30a [facility] Jae Venegas COMPUTER PROCESSING SCHEDULER R73.01 Impaired fasting glucose R94.5 Abnormal results of liver function studies E78.2 Mixed hyperlipidemia I10 Essential (primary) hypertension K51.90 Ulcerative colitis, unspecified, without complications K21.0 Gastro-esophageal reflux disease with esophagitis J30.2 Other seasonal allergic rhinitis M15.9 Polyosteoarthritis, unspecified K30 Functional dyspepsia R73.9 Hyperglycemia, unspecified Office Visit 05/03/2016 9:00a [facility] Jae Venegas COMPUTER PROCESSING SCHEDULER R73.01 Impaired fasting glucose R94.5 Abnormal results of liver function studies E78.2 Mixed hyperlipidemia I10 Essential (primary) hypertension K51.90 Ulcerative colitis, unspecified, without complications K21.0 Gastro-esophageal reflux disease with esophagitis J30.2 Other seasonal allergic rhinitis M15.9 Polyosteoarthritis, unspecified R53.83 Other fatigue Office Visit 01/21/2016 9:00a [facility] Yancy Lisa, R73.01 Impaired fasting M.D. [...] in right knee Office Visit 01/04/2016 8:30a [facility] Yancy Lisa, R73.01 Impaired fasting M.D. [...] in right knee Office Visit 10/01/2015 4:15p [facility] Yancy Lisa., R73.01 Impaired fasting M.D. glucose R94.5 Abnormal [...] Encounter for immunization Office Visit 05/31/2015 9:15a [facility] Yancy Lisa V70.0 Examination General Farrukh Sanchez [facility] Routine [facility] 790.21 [...] Joint Lower Leg Office Visit 04/26/2015 9:00a [facility] Yancy Lisa, 790.21 Impaired Fasting M.D. Glucose 794.8 Liver Study Abnormal 272.2 Hyperlipidemia Mixed 401.1 Hypertension Benign 556.9 Ulcerative Colitis Unspec 536.8 Stomach Dyspepsia & Other Spec Disorders Of Function 530.11 Esophagitis Reflux 477.8 Rhinitis Allergic Due To Other Allergen 715.90 Osteoarthrosis Unspec Genlzd Or Localized Site Unspec 493.90 Asthma Unspec W/O Status Asthmaticus 276.8 Hypopotassemia 368.30 Bifocal Vision Office Visit 04/05/2015 8:45a [facility] Yancy Lisa 272.2 Hyperlipidemia Julissa Sanchez M.D. 401.1 Hypertension Benign 556.9 Ulcerative Colitis Unspec 536.8 Stomach Dyspepsia & Other Spec Disorders Of Function 530.11 Esophagitis Reflux 477.8 Rhinitis Allergic Due To Other Allergen 715.90 Osteoarthrosis Unspec Genlzd Or Localized Site Unspec 493.90 Asthma Unspec W/O Status Asthmaticus 276.8 Hypopotassemia Office Visit 01/25/2015 9:45a [facility] Yancy Lisa, 276.8 Hypopotassemia M.D. 272.2 Hyperlipidemia Mixed 401.1 Hypertension Benign 556.9 Ulcerative Colitis Unspec 536.8 Stomach Dyspepsia & Other Spec Disorders Of Function 530.11 Esophagitis Reflux 477.8 Rhinitis Allergic Due To Other Allergen 715.90 Osteoarthrosis Unspec Genlzd Or Localized Site Unspec 493.90 Asthma Unspec W/O Status Asthmaticus Office Visit 12/14/2014 9:15a [facility] Yancy Lisa, 276.8 Hypopotassemia M.D. 272.2 Hyperlipidemia Mixed 401.1 Hypertension Benign 556.9 Ulcerative Colitis Unspec 536.8 Stomach Dyspepsia & Other Spec Disorders Of Function 530.11 Esophagitis Reflux 477.8 Rhinitis Allergic Due To Other Allergen 715.90 Osteoarthrosis Unspec Genlzd Or Localized Site Unspec 493.90 Asthma Unspec W/O Status Asthmaticus Office Visit 09/15/2014 9:00a [facility] Lauren Raygoza, 401.1 Hypertension Benign COMPUTER PROCESSING SCHEDULER 272.2 Hyperlipidemia Mixed 556.9 Ulcerative Colitis Unspec 276.8 Hypopotassemia 477.8 Rhinitis Allergic Due To Other Allergen 530.11 Esophagitis Reflux 536.8 Stomach Dyspepsia & Other Spec Disorders Of Function Office Visit 09/01/2014 3:00p [facility] Lauren Raygoza, 276.8 Hypopotassemia COMPUTER PROCESSING SCHEDULER 272.2 Hyperlipidemia Mixed 401.1 Hypertension Benign 556.9 Ulcerative Colitis Unspec 536.8 Stomach Dyspepsia & Other Spec Disorders Of Function V04.81 Need For Prophylactic Vaccination & Inoculation/Influenza Office Visit 06/18/2014 8:30a [facility] Lauren Raygoza, V72.31 Routine Surgery Technician COMPUTER PROCESSING SCHEDULER Examination 401.1 Hypertension Benign 530.11 Esophagitis Reflux 477.8 Rhinitis Allergic Due To Other Allergen 715.90 Osteoarthrosis Unspec Genlzd Or Localized Site Unspec 536.8 Stomach Dyspepsia & Other Spec Disorders Of Function 493.90 Asthma Unspec W/O Status Asthmaticus 556.9 Ulcerative Colitis Unspec 276.8 Hypopotassemia 780.79 Malaise And Fatigue Other 272.2 Hyperlipidemia Mixed Office Visit 05/26/2014 2:15p [facility] Yancy Lisa 401.1 Hypertension Marsha Sanchez [...] Index 27.0-27.9 Adult Office Visit 03/26/2014 4:00p [facility] Alban, 401.1 Hypertension Benign Marcie, COMPUTER PROCESSING SCHEDULER 530.11 Esophagitis Reflux 477.8 Rhinitis Allergic Due To Other Allergen 715.90 Osteoarthrosis Unspec Genlzd Or Localized Site Unspec 536.8 Stomach Dyspepsia & Other Spec Disorders Of Function 493.90 Asthma Unspec W/O Status Asthmaticus 556.9 Ulcerative Colitis Unspec 276.8 Hypopotassemia 780.79 Malaise And Fatigue Other 272.2 Hyperlipidemia Mixed Office Visit 02/20/2014 4:15p [facility] Alban, 401.1 Hypertension Benign Marcie, COMPUTER PROCESSING SCHEDULER 272.2 Hyperlipidemia Mixed 530.11 Esophagitis Reflux 477.8 [...] 462 Pharyngitis Acute Office Visit 02/03/2014 9:15a [facility] Alban, 401.1 Hypertension Benign Marcie, COMPUTER PROCESSING SCHEDULER 272.2 Hyperlipidemia Mixed 530.11 Esophagitis Reflux 477.8 Rhinitis Allergic Due To Other Allergen 715.90 Osteoarthrosis Unspec Genlzd Or Localized Site Unspec 536.8 Stomach Dyspepsia & Other Spec Disorders Of Function 493.90 Asthma Unspec W/O Status Asthmaticus 556.9 Ulcerative Colitis Unspec Office Visit 01/06/2014 9:45a [facility] Alban, 401.1 Hypertension Benign Marcie, COMPUTER PROCESSING SCHEDULER 272.2 Hyperlipidemia Mixed 530.11 Esophagitis Reflux 477.8 Rhinitis Allergic Due To Other Allergen 715.90 Osteoarthrosis Unspec Genlzd Or Localized Site Unspec 536.8 Stomach Dyspepsia & Other Spec Disorders Of Function 493.90 Asthma Unspec W/O Status Asthmaticus 556.9 Ulcerative Colitis Unspec Office Visit 12/23/2013 9:00a [facility] Alban, 401.1 Hypertension Benign Marcie, COMPUTER PROCESSING SCHEDULER 272.2 Hyperlipidemia Mixed 530.11 Esophagitis Reflux 477.8 Rhinitis Allergic Due To Other Allergen 715.90 Osteoarthrosis Unspec Genlzd Or Localized Site Unspec 536.8 Stomach Dyspepsia & Other Spec Disorders Of Function 493.90 Asthma Unspec W/O Status Asthmaticus 556.9 Ulcerative Colitis Unspec Office Visit 10/21/2013 3:00p [facility] [place] [facility] Alban, 401.1 Hypertension Benign Marcie, COMPUTER PROCESSING SCHEDULER 272.2 Hyperlipidemia Mixed 530.11 Esophagitis Reflux 477.8 Rhinitis Allergic Due To Other Allergen 715.90 Osteoarthrosis Unspec Genlzd Or Localized Site Unspec 536.8 Stomach Dyspepsia & Other Spec Disorders Of Function 493.90 Asthma Unspec W/O Status Asthmaticus 556.9 Ulcerative Colitis Unspec Office Visit 09/08/2013 8:45a [facility] [place] [facility] Alban, 401.1 Hypertension Benign Marcie, COMPUTER PROCESSING SCHEDULER 272.2 Hyperlipidemia Mixed 530.11 Esophagitis Reflux 477.8 Rhinitis Allergic Due To Other Allergen 715.90 Osteoarthrosis Unspec Genlzd Or Localized Site Unspec 536.8 Stomach Dyspepsia & Other Spec Disorders Of Function 493.90 Asthma Unspec W/O Status Asthmaticus 556.9 Ulcerative Colitis Unspec V04.81 Need For Prophylactic Vaccination & Inoculation/Influenza Office Visit 08/20/2013 8:45a [facility] Marcie Phoenix, 461.8 Sinusitis Acute COMPUTER PROCESSING SCHEDULER Other 786.2 Cough 388.70 Otalgia & Earache Unspec 462 Pharyngitis Acute 401.1 Hypertension Benign 272.2 Hyperlipidemia Mixed 530.11 Esophagitis Reflux 477.8 Rhinitis Allergic Due To Other Allergen 715.90 Osteoarthrosis Unspec Genlzd Or Localized Site Unspec 536.8 Stomach Dyspepsia & Other Spec Disorders Of Function 493.90 Asthma Unspec W/O Status Asthmaticus 556.9 Ulcerative Colitis Unspec Office Visit 08/05/2013 10:15a [facility] [place] [facility] Alban, 401.1 Hypertension Benign Marcie, COMPUTER PROCESSING SCHEDULER 272.2 Hyperlipidemia Mixed 530.11 Esophagitis Reflux 477.8 Rhinitis Allergic Due To Other Allergen 715.90 Osteoarthrosis Unspec Genlzd Or Localized Site Unspec 536.8 Stomach Dyspepsia & Other Spec Disorders Of Function 493.90 Asthma Unspec W/O Status Asthmaticus 556.9 Ulcerative Colitis Unspec Office Visit 03/27/2013 10:15a [facility] Yancy Lisa 401.1 Hypertension Benign M., MReynaldoDReynaldo 272.2 Hyperlipidemia Mixed 530.11 Esophagitis Reflux 477.8 Rhinitis Allergic Due To Other Allergen 715.90 Osteoarthrosis Unspec Genlzd Or Localized Site Unspec 536.8 Stomach Dyspepsia & Other Spec Disorders Of Function 493.90 Asthma Unspec W/O Status Asthmaticus 787.91 Diarrhea Office Visit 09/05/2012 [place] Leighann Monahan COMPUTER PROCESSING SCHEDULER 401.1 Hypertension 2:00p Office Benign 272.2 Hyperlipidemia Mixed 530.11 Esophagitis Reflux 477.8 Rhinitis Allergic Due To Other Allergen 715.90 Osteoarthrosis Unspec Genlzd Or Localized Site Unspec V04.81 Need For Prophylactic Vaccination & Inoculation/Influenza Office Visit 03/11/2012 11:15a [facility] [place] [facility] Yancy Lisa 401.1 Hypertension Benign M., MReynaldoDReynaldo 272.2 Hyperlipidemia Mixed 530.11 Esophagitis Reflux 477.8 Rhinitis Allergic Due To Other Allergen 715.90 Osteoarthrosis Unspec Genlzd Or Localized Site Unspec Office Visit 10/17/2011 9:45a [facility] Yancy Lisa 401.1 Hypertension Marsha M. MReynaldoDReynaldo 272.2 Hyperlipidemia Mixed 530.11 Esophagitis Reflux 477.8 Rhinitis Allergic Due To Other Allergen Office Visit 10/03/2011 9:15a [facility] Yancy Lisa 401.1 Hypertension Benign M., MReynaldoDReynaldo 272.2 Hyperlipidemia Mixed 477.8 Rhinitis Allergic Due To Other Allergen 530.11 Esophagitis Reflux Office Visit 09/11/2011 12:30p [facility] [place] [facility] Yancy Lisa 401.1 Hypertension Benign M., MReynaldoDReynaldo 272.2 Hyperlipidemia Mixed 536.8 Stomach Dyspepsia & Other Spec Disorders Of Function 715.90 Osteoarthrosis Unspec Genlzd Or Localized Site Unspec V04.81 Need For Prophylactic Vaccination & Inoculation/Influenza Office Visit 03/21/2011 9:15a [facility] [place] [facility] Yancy Lisa 401.1 Hypertension Benign Farrukh Sanchez 272.2 Hyperlipidemia Mixed Office Visit 03/14/2011 3:15p [facility] Yancy Lisa 401.1 Hypertension Benign M.Farrukh 272.2 Hyperlipidemia Mixed 477.8 Rhinitis Allergic Due To Other Allergen Office Visit 11/11/2009 2:00p [facility] Yancy Lisa 401.1 Hypertension Benign Farrukh Sanchez 272.2 Hyperlipidemia Mixed 477.8 Rhinitis Allergic Due To Other Allergen Office Visit 10/26/2009 9:45a [facility] [place] [facility] Yancy Lisa 401.1 Hypertension Benign Farrukh Sanchez 272.2 Hyperlipidemia Mixed Office Visit 09/21/2009 4:00p [facility] Yancy Lisa 796.2 Blood Pressure Farrukh Sanchez Reading Elevated W/O Hypertension 401.1 Hypertension Benign 272.2 Hyperlipidemia Mixed 789.07 Pain Abdominal Generalized Plan of Treatment Future Appointment(s):02/24/2019 11:15 am - Prakash Lim N.P. at [facility]
== END 2019-03-06 10:31 | disposition home or self-care (01) ==
LOC: UCCORT 09:31
DX: J32.9 Chronic sinusitis, unspecified (principal); J40 Bronchitis, not specified as acute or chronic
CPT/HCPCS: 99212; G0463